=== PATIENT | female | born 1935 | race Caucasian/White ===

== ENCOUNTER 2019-01-17 19:24 | Emergency (ER) | payer OTHER ==
[2019-01-17] MEDS ORDERED: BUPIVACAINE 0.5% PF 10 ML VIAL ONE (20:02)
--- NOTE | 2019-01-17 20:19 | RAD REPORT ---
EXAM DESCRIPTION: RAD - Hand Right 3 View - 01/17/2019 8:11 pm CLINICAL HISTORY: Right hand pain status post injury FINDINGS: Dislocation involves the third middle phalanx. No fracture is seen
[2019-01-17] MEDS ORDERED: WATER FOR INJ,STERILE 10 ML ONE (20:27)
[2019-01-17] MEDS ORDERED: CEFAZOLIN SODIUM 1 GM/VIAL ONE (20:27)
--- NOTE | 2019-01-17 20:32 | EDPHYS ---
Physician Documentation [facility] Name: Mima Dougherty Age: 83 yrs Sex: Female : 1935 Arrival Date: 01/17/2019 Time: 19:26 Bed 28 Private MD: Cole Bella C ED Physician Asa Alcaraz HPI: 01/17 20:08 This 83 yrs old Female presents to ER via Ambulatory with complaints of jr8 Finger Injury. 20:08 Mechanism of injury: Fall:. Associated injuries: The patient sustained right hand. jr8 Onset: The symptoms/episode began/occurred acutely, today. The patient has not experienced similar symptoms in the past. The patient has not recently seen a physician. Patient was holding on to dog with leash and fell landing on both hands. Lacerated right volar surface of middle finger with obvious deformity. Historical: - Allergies: 19:35 Toprol XL; aj1 19:35 Lisinopril; aj1 19:35 Cozaar; aj1 19:35 amiodarone; aj1 - Home Meds: 19:35 propafenone 225 mg Oral cp12 1 cap three times a day [Active]; Metamucil Smooth Texture aj1 Oral three times a day [Active]; hydrochlorothiazide 12.5 mg Oral tab 1 tab once daily [Active]; aspirin 81 mg Oral chew 1 tab once daily [Active]; amlodipine 5 mg tab 1 tab once daily [Active]; esster c 1000 mg daily [Active]; Tekturna 150 mg oral tab 1 tab once daily [Active]; warfarin 4 mg Oral tab 1 tab once daily [Active]; warfarin 2 mg Oral tab 1 tab once daily [Active]; lovastatin 20 mg Oral tab 1 tab once daily [Active]; PreserVision Lutein 226 mg-200 unit -5 mg-0.8 mg oral cap daily [Active]; - PMHx: 19:35 CVA; pnumonia; MRSA; aj1 - PSHx: 19:35 ORIF left calcaneus; cataract surgery; aj1 - Immunization history:: Flu vaccine is up to date. - Social history:: Smoking status: Patient/guardian denies using tobacco. - Ebola Screening: : Patient denies travel to an Ebola-affected area in the 21 days before illness onset. ROS: 20:08 Eyes: Negative for injury, pain, redness, and discharge, ENT: Negative for injury, jr8 pain, and discharge, Neck: Negative for injury, pain, and swelling, Cardiovascular: Negative for chest pain, palpitations, and edema, Respiratory: Negative for shortness of breath, cough, wheezing, and pleuritic chest pain, Abdomen/GI: Negative for abdominal pain, nausea, vomiting, diarrhea, and constipation, Back: Negative for injury and pain, Neuro: Negative for headache, weakness, numbness, tingling, and seizure. 20:08 MS/extremity: Positive for deformity, ecchymosis, laceration, pain, swelling, tenderness, of the PIP of right middle finger. Exam: 20:08 Head/Face: Normocephalic, atraumatic. Eyes: Pupils equal round and reactive to light, jr8 extra-ocular motions intact. Lids and lashes normal. Conjunctiva and sclera are non-icteric and not injected. Cornea within normal limits. Periorbital areas with no swelling, redness, or edema. ENT: Nares patent. No nasal discharge, no septal abnormalities noted. Tympanic membranes are normal and external auditory canals are clear. Oropharynx with no redness, swelling, or masses, exudates, or evidence of obstruction, uvula midline. Mucous membranes moist. Neck: Trachea midline, no thyromegaly or masses palpated, and no cervical lymphadenopathy. Supple, full range of motion without nuchal rigidity, or vertebral point tenderness. No Meningismus. Cardiovascular: Regular rate and rhythm with a normal S1 and S2. No gallops, murmurs, or rubs. Normal PMI, no JVD. No pulse deficits. Respiratory: Lungs have equal breath sounds bilaterally, clear to auscultation and percussion. No rales, rhonchi or wheezes noted. No increased work of breathing, no retractions or nasal flaring. Abdomen/GI: Soft, non-tender, with normal bowel sounds. No distension or tympany. No guarding or rebound. No evidence of tenderness throughout. Skin: Warm, dry with normal turgor. Normal color with no rashes, no lesions, and no evidence of cellulitis. Neuro: Awake and alert, GCS 15, oriented to person, place, time, and situation. Cranial nerves II-XII grossly intact. Motor strength 5/5 in all extremities. Sensory grossly intact. Cerebellar exam normal. Normal gait. 20:08 Musculoskeletal/extremity: Extremities: grossly normal except: noted in the PIP of right middle finger: Patient has obvious deformity of the PIP joint right middle finger with 1.5 cm laceration present. Small avulsion tear to left palm region. Mild bruising to PIP of the 4 digit noted as well. Neurovascularly intact . Vital Signs: 19:27 BP 191 / 86; Pulse 70; Resp 18; Temp 97.0(TE); Pulse Ox 100% on R/A; Weight 55.34 kg aj1 (R); Height 5 ft. 2 in. (157.48 cm) (R); Pain 1/10; 20:53 BP 185 / 81; Pulse 71; Resp 16; Pulse Ox 98% on R/A; la1 19:27 Body Mass Index 22.31 (55.34 kg, 157.48 cm) aj1 Procedures: 20:08 Reduction: of the PIP of right middle finger, using traction, manipulation, Immobilized jr8 with finger splint, Patient tolerated well. Post reduction film - reveals normal alignment. Nerve block: (digital) of dorsal aspect of proximal phalanx of right middle finger Medication: Marcaine 0.5%, Amount: 3 mls were injected, Effect: the patient has resolution of the pain, Set up for procedure. Performed by Nick MARCUS Patient tolerated well. Laceration: 20:08 Wound Repair of 1.5cm ( 0.6in ) subcutaneous laceration to PIP of right middle finger. jr8 Distal neuro/vascular/tendon intact. Anesthesia: Digital block administered with 3 mls of 0.5% marcaine. Wound prep: Extensive cleansing with betadine, Wound irrigation with saline, Wound explored extensively. Skin closed with 3 5-0 Prolene using interrupted sutures and sterile technique. Patient tolerated well. MDM: 19:40 Patient medically screened. jr8 20:08 Data reviewed: vital signs, nurses notes, radiologic studies, plain films, and as a jr8 result, I will discharge patient. Data interpreted: Pulse oximetry: on room air is 100 %. Interpretation: normal. Counseling: I had a detailed discussion with the patient and/or guardian regarding: the historical points, exam findings, and any diagnostic results supporting the discharge/admit diagnosis, radiology results, the need for outpatient follow up, a hand specialist, to return to the emergency department if symptoms worsen or persist or if there are any questions or concerns that arise at home. 20:17 ED course: Patient has had tetanus within past 5 years . jr8 01/17 19:41 Order name: Hand Right 3 View XRAY; Complete Time: 20:20 la1 01/17 20:07 Order name: Hand Right 2 View XRAY; Complete Time: 20:38 la1 01/17 20:21 Order name: Prolene, Sutures; Complete Time: 20:21 la1 01/17 20:21 Order name: Gloves, Sterile; Complete Time: 20:21 la1 01/17 20:21 Order name: Setup Suture Tray; Complete Time: 20:21 la1 01/17 20:32 Order name: Finger Splint; Complete Time: 20:53 jr8 Administered Medications: 19:44 Not Given (Up to date): Tetanus-Diphtheria Toxoid Adult 0.5 ml IM once la1 20:18 Drug: Ancef 1 grams Route: IM; Site: right vastus lateralis; la1 20:19 Follow up: Response: No adverse reaction la1 20:54 Follow up: Response: No adverse reaction la1 20:19 Drug: Marcaine (0.5 %) 5 ml Volume: 10 ml; Route: Infiltration; la1 Disposition: 01/18 07:18 Co-signature as Attending Physician, Asa Alcaraz MD. gs Disposition: 01/17/19 20:31 Discharged to Home. Impression: Dislocation of proximal interphalangeal joint of right middle finger, Laceration without foreign body of finger without damage to nail. - Condition is Stable. - Discharge Instructions: Laceration Care, Adult. - Prescriptions for Keflex 500 mg Oral Capsule - take 1 capsule by ORAL route every 8 hours for 7 days; 21 capsule. - Medication Reconciliation Form, Thank You Letter, Antibiotic Education, Prescription Opioid Use form. - Follow up: Richard Norris; When: 2 - 3 days; Reason: Wound Recheck, Recheck today's complaints, Continuance of care, Staple/Suture removal, Re-evaluation by your physician. - Problem is new. - Symptoms have improved. Signatures: Dispatcher [employer] EDMS Bambi Greene RN RN zaki1 Nick Bravo PA PA jr8 Js Graham RN RN la1 Asa Alcaraz MD MD gs Corrections: (The following items were deleted from the chart) 01/17 20:55 20:31 01/17/2019 20:31 Discharged to Home. Impression: Dislocation of proximal la1 interphalangeal joint of right middle finger; Laceration without foreign body of finger without damage to nail. Condition is Stable. Discharge Instructions: Laceration Care, Adult. Prescriptions for Keflex 500 mg Oral Capsule - take 1 capsule by ORAL route every 8 hours for 7 days; 21 capsule. and Forms are Medication Reconciliation Form, Thank You Letter, Antibiotic Education, Prescription Opioid Use. Follow up: Richard Norris; When: 2 - 3 days; Reason: Wound Recheck, Recheck today's complaints, Continuance of care, Staple/Suture removal, Re-evaluation by your physician. Problem is new. Symptoms have improved. jr8
--- NOTE | 2019-01-17 20:32 | ER ---
Nurse's Notes [facility] Name: Mima Dougherty Age: 83 yrs Sex: Female : 1935 Arrival Date: 01/17/2019 Time: 19:26 Bed 28 Private MD: Cole Bella C Diagnosis: Dislocation of proximal interphalangeal joint of right middle finger;Laceration without foreign body of finger without damage to nail Presentation: 01/17 19:27 Presenting complaint: Patient states: "I was walking the dog and I tripped over aj1 something and fell and I hurt my finger" Dislocation noted to right middle finger. Transition of care: patient was not received from another setting of care. Onset of symptoms was January 17, 2019. Risk Assessment: Do you want to hurt yourself or someone else? Patient reports no desire to harm self or others. Initial Sepsis Screen: Does the patient meet any 2 criteria? No. Patient's initial sepsis screen is negative. Does the patient have a suspected source of infection? No. Patient's initial sepsis screen is negative. Care prior to arrival: None. 19:27 Method Of Arrival: Ambulatory [facility] 19:27 Acuity: LAN 4 aj1 Triage Assessment: 19:27 General: Appears in no apparent distress. comfortable, Behavior is calm, cooperative, aj1 appropriate for age. Pain: Complains of pain in dorsal aspect of middle phalanx of right middle finger Pain currently is 1 out of 10 on a pain scale. Neuro: Level of Consciousness is awake, alert, obeys commands. Cardiovascular: Patient's skin is warm and dry. Respiratory: Airway is patent Respiratory effort is even, unlabored, Respiratory pattern is regular, symmetrical. Musculoskeletal: Range of motion: limited in PIP of right middle finger. Injury Description: Patient tripped and dislocated her right middle finger. Historical: - Allergies: 19:35 Toprol XL; aj1 19:35 Lisinopril; aj1 19:35 Cozaar; aj1 19:35 amiodarone; aj1 - Home Meds: 19:35 propafenone 225 mg Oral cp12 1 cap three times a day [Active]; Metamucil Smooth Texture aj1 Oral three times a day [Active]; hydrochlorothiazide 12.5 mg Oral tab 1 tab once daily [Active]; aspirin 81 mg Oral chew 1 tab once daily [Active]; amlodipine 5 mg tab 1 tab once daily [Active]; esster c 1000 mg daily [Active]; Tekturna 150 mg oral tab 1 tab once daily [Active]; warfarin 4 mg Oral tab 1 tab once daily [Active]; warfarin 2 mg Oral tab 1 tab once daily [Active]; lovastatin 20 mg Oral tab 1 tab once daily [Active]; PreserVision Lutein 226 mg-200 unit -5 mg-0.8 mg oral cap daily [Active]; - PMHx: 19:35 CVA; pnumonia; MRSA; aj1 - PSHx: 19:35 ORIF left calcaneus; cataract surgery; aj1 - Immunization history:: Flu vaccine is up to date. - Social history:: Smoking status: Patient/guardian denies using tobacco. - Ebola Screening: : Patient denies travel to an Ebola-affected area in the 21 days before illness onset. Screenin:43 Abuse screen: Denies threats or abuse. Nutritional screening: No deficits noted. la1 Tuberculosis screening: No symptoms or risk factors identified. Fall Risk None identified. Assessment: 19:42 General: Appears in no apparent distress. Behavior is calm, cooperative. Pain: la1 Complains of pain in PIP of right middle finger and dorsal aspect of middle phalanx of right middle finger. Neuro: Level of Consciousness is awake, alert, obeys commands, Oriented to person, place, time, situation. Cardiovascular: Capillary refill < 3 seconds Patient's skin is warm and dry. Respiratory: Airway is patent Respiratory effort is even, unlabored, Respiratory pattern is regular, symmetrical. GI: No signs and/or symptoms were reported involving the gastrointestinal system. : No signs and/or symptoms were reported regarding the genitourinary system. Musculoskeletal: Bony deformity noted of PIP of right middle finger and dorsal aspect of middle phalanx of right middle finger. Vital Signs: 19:27 BP 191 / 86; Pulse 70; Resp 18; Temp 97.0(TE); Pulse Ox 100% on R/A; Weight 55.34 kg aj1 (R); Height 5 ft. 2 in. (157.48 cm) (R); Pain 1/10; 20:53 BP 185 / 81; Pulse 71; Resp 16; Pulse Ox 98% on R/A; la1 19:27 Body Mass Index 22.31 (55.34 kg, 157.48 cm) aj1 ED Course: 19:26 Patient arrived in ED. am2 19:27 Cole Bella MD is Private Physician. am2 19:27 Arm band placed on. aj1 19:28 Triage completed. aj1 19:40 Nick Bravo PA is PHCP. jr8 19:40 Asa Alcaraz MD is Attending Physician. jr8 19:42 Js Grahma RN is Primary Nurse. la1 19:43 Call light in reach. Side rails up X 1. la1 20:11 Hand Right 3 View XRAY In Process Unspecified. EDMS 20:20 Hand Right 2 View XRAY In Process Unspecified. EDMS 20:31 Richard Norris MD is Referral Physician. jr8 20:54 No provider procedures requiring assistance completed. Patient did not have IV access la1 during this emergency room visit. Administered Medications: 19:44 Not Given (Up to date): Tetanus-Diphtheria Toxoid Adult 0.5 ml IM once la1 20:18 Drug: Ancef 1 grams Route: IM; Site: right vastus lateralis; la1 20:19 Follow up: Response: No adverse reaction la1 20:54 Follow up: Response: No adverse reaction la1 20:19 Drug: Marcaine (0.5 %) 5 ml Volume: 10 ml; Route: Infiltration; la1 Outcome: 20:31 Discharge ordered by MD. jr8 20:54 Discharged to home ambulatory. la1 20:54 Condition: stable 20:54 Discharge instructions given to patient, Instructed on discharge instructions, follow up and referral plans. medication usage, Demonstrated understanding of instructions, follow-up care, medications, Prescriptions given X 1. 20:55 Patient left the ED. la1 Signatures: Dispatcher [employer] Bambi Ventura RN RN aj1 Nick Bravo PA PA jr8 Js Graham RN RN la1 Amber Iraheta am2
--- NOTE | 2019-01-17 20:35 | RAD REPORT ---
EXAM DESCRIPTION: RAD - Hand Right 2 View - 01/17/2019 8:21 pm CLINICAL HISTORY: Hand pain FINDINGS: Previously described dislocation involving the third middle phalanx appears reduced
[2019-01-17 22:13] VITALS: TEMP 97
[2019-01-17 22:15] VITALS: BP 185/81; O2SAT 98
== END 2019-01-17 20:55 | disposition home or self-care (01) ==
LOC: ER 19:24
PROC: 0RSWXZZ Reposition Right Finger Phalangeal Joint, External Approach (ICD-10-PCS; principal; 2019-01-17)
PROC: 0JQJ0ZZ Repair Right Hand Subcutaneous Tissue and Fascia, Open Approach (ICD-10-PCS; 2019-01-17)
DX: S61.312A Laceration without foreign body of right middle finger with damage to nail, initial encounter (principal); S63.282A Dislocation of proximal interphalangeal joint of right middle finger, initial encounter; W19.XXXA Unspecified fall, initial encounter; Y93.K1 Activity, walking an animal; Y92.9 Unspecified place or not applicable; Z79.01 Long term (current) use of anticoagulants; Z79.82 Long term (current) use of aspirin; Z88.8 Allergy status to other drugs, medicaments and biological substances; Z86.73 Personal history of transient ischemic attack (TIA), and cerebral infarction without residual deficits
CPT/HCPCS: 73130; 73120; 64450; 96372; 99283; 26770; 12001; J0690

== ENCOUNTER 2019-04-10 08:50 | Inpatient (IN) | payer OTHER ==
--- NOTE | 2019-04-10 09:52 | RAD REPORT ---
EXAM DESCRIPTION: CT - Head Brain Wo Cont - 04/10/2019 9:39 am CLINICAL HISTORY: Head injury status post fall COMPARISON: None TECHNIQUE: Computed axial tomography of the head was obtained. IV contrast was not requested. All CT scans are performed using dose optimization technique as appropriate and may include automated exposure control or mA/KV adjustment according to patient size. FINDINGS: An intracranial bleed is not seen . The ventricles are normal in caliber. No extra-axial fluid collection is noted. 2 centimeter low-density area within the right frontal lobe extending into the right caudate has the appearance of an old infarction. Small additional old right frontal lobe infarct is suspected. Fluid within the sinuses/ mastoids is not seen. IMPRESSION: No acute intracranial abnormality is seen. If patient's symptoms persist MRI of the bra in would be recommended.
--- NOTE | 2019-04-10 10:57 | RAD REPORT ---
EXAM DESCRIPTION: RAD - Hip Right 2 View - 04/10/2019 9:49 am CLINICAL HISTORY: Right hip pain FINDINGS: Mildly displaced fracture involves the right superior pubic ramus. Probable nondisplaced f racture left inferior pubic ramus. No dislocation Osteoporosis
--- NOTE | 2019-04-10 11:15 | RAD REPORT ---
EXAM DESCRIPTION: CT - Hip Right Wo Con - 04/10/2019 10:53 am CLINICAL HISTORY: Right hip pain status post fall COMPARISON: X-rays on the same date. TECHNIQUE: Computed axial tomography of the right hip were obtained. Coronal and sagittal reconstruc tion was performed. All CT scans are performed using dose optimization technique as appropriate and may include automated exposure control or mA/KV adjustment according to patient size. FINDINGS: Mildly displaced comminuted fracture right superior pubic ramus. Small hematoma posterior to the right pubic bone Nondisplaced fracture right inferior pubic ramus Nondisplaced fracture right sacral ala Lucency within the posterior right ilium appears chronic No dislocation IMPRESSION: Mildly displaced comminuted fracture right superior pubic ramus. Nondisplaced fracture right inferior pubic ramus Nondisplaced fracture right sacral ala
[2019-04-10 12:25] LABS: Absolute Lymphocytes (CBC) 1.1 K/uL (0.7-4.9); Basophils % 0.3 % (0-1.3); Hematocrit 29.5 % (36.0-45.0); Lymphocytes % 8.4 % (15.3-44.8); MPV 9.1 fL (7.6-11.3); RBC Red Blood Cell Count 3.01 M/uL (3.86-4.86)
[2019-04-10 12:27] LABS: Protime INR 2.3
[2019-04-10 13:00] LABS: Blood Morphology Comment NOT SEEN (NOT SEEN); Platelet Estimate ADEQ
--- NOTE | 2019-04-10 13:39 | ER ---
Nurse's Notes [facility] Name: Mima Dougherty Age: 83 yrs Sex: Female : 1935 Arrival Date: 04/10/2019 Time: 08:51 Bed 19 Private MD: Diagnosis: Multiple fractures of pelvis with stable disruption of pelvic ring Presentation: 04/10 08:52 Presenting complaint: EMS states: called out for a fall after dog tripped her and em landed on grass, denies LOC, neck pain or hitting head, c/o pain in right hip, no shortening or rotation noted to leg, takes warfarin for AFIB. Transition of care: patient was not received from another setting of care. Onset of symptoms was April 10, 2019. Risk Assessment: Do you want to hurt yourself or someone else? Patient reports no desire to harm self or others. Initial Sepsis Screen: Does the patient meet any 2 criteria? No. Patient's initial sepsis screen is negative. Does the patient have a suspected source of infection? No. Patient's initial sepsis screen is negative. Care prior to arrival: None. 08:52 Method Of Arrival: EMS: [facility] em 09:02 Acuity: LAN 3 tw2 Historical: - Allergies: 08:57 Amiodarone; em 08:57 Cozaar; em 08:57 Lisinopril; em 08:57 Toprol XL; em - Home Meds: 08:57 amlodipine 5 mg tab 1 tab once daily [Active]; aspirin 81 mg Oral chew 1 tab once daily em [Active]; esster c 1000 mg daily [Active]; hydrochlorothiazide 12.5 mg Oral tab 1 tab once daily [Active]; lovastatin 20 mg Oral tab 1 tab once daily [Active]; Metamucil Smooth Texture Oral three times a day [Active]; PreserVision Lutein 226 mg-200 unit -5 mg-0.8 mg Oral cap daily [Active]; propafenone 225 mg Oral cp12 1 cap three times a day [Active]; Tekturna 150 mg Oral tab 1 tab once daily [Active]; warfarin 4 mg Oral tab 1 tab once daily [Active]; warfarin 2 mg Oral tab 1 tab once daily [Active]; - PMHx: 08:57 CVA; MRSA; pnumonia; em 09:00 Atrial Fib; em - PSHx: 08:57 ORIF left calcaneus; cataract surgery; em - Immunization history:: Adult Immunizations up to date. - Social history:: Smoking status: Patient/guardian denies using tobacco. - Ebola Screening: : Patient negative for fever greater than or equal to 101.5 degrees Fahrenheit, and additional compatible Ebola Virus Disease symptoms Patient denies exposure to infectious person Patient denies travel to an Ebola-affected area in the 21 days before illness onset No symptoms or risks identified at this time. Screenin:58 Abuse screen: Denies threats or abuse. Nutritional screening: No deficits noted. em Tuberculosis screening: No symptoms or risk factors identified. Fall Risk None identified. Assessment: 09:18 General: Appears in no apparent distress. comfortable, Behavior is calm, cooperative. em Pain: Complains of pain in right hip Pain currently is 0 out of 10 on a pain scale. Neuro: Level of Consciousness is awake, alert, obeys commands, Oriented to person, place, time, situation, Appropriate for age. Cardiovascular: Capillary refill < 3 seconds Patient's skin is warm and dry. Respiratory: Airway is patent Respiratory effort is even, unlabored, Respiratory pattern is regular, symmetrical. Derm: Skin is intact, is thin, Skin is pink, warm \T\ dry. Musculoskeletal: Range of motion: limited in right hip. 10:07 Reassessment: Patient appears in no apparent distress at this time. assisted pt to em bedpan, tolerated well, c/o right hip pain. 12:12 Reassessment: Patient appears in no apparent distress at this time. Patient and/or em family updated on plan of care and expected duration. Pain level reassessed. Patient is alert, oriented x 3, equal unlabored respirations, skin warm/dry/pink. Patient denies pain at this time. 13:34 Reassessment: Patient appears in no apparent distress at this time. Patient and/or em family updated on plan of care and expected duration. Pain level reassessed. Patient is alert, oriented x 3, equal unlabored respirations, skin warm/dry/pink. 14:30 Reassessment: Patient appears in no apparent distress at this time. Patient and/or em family updated on plan of care and expected duration. Pain level reassessed. Patient is alert, oriented x 3, equal unlabored respirations, skin warm/dry/pink. Patient denies pain at this time. Vital Signs: 08:57 BP 154 / 62; Pulse 71; Resp 18; Temp 97.8; Pulse Ox 99% on R/A; Weight 56.7 kg; Height em 5 ft. 2 in. (157.48 cm); Pain 0/10; 10:00 BP 182 / 57; Pulse 63; Resp 18; Pulse Ox 99% on R/A; Pain 0/10; em 11:54 BP 168 / 93; Pulse 67; Resp 18; Pulse Ox 99% on R/A; em 13:34 BP 154 / 72; Pulse 73; Resp 18; Pulse Ox 99% on R/A; Pain 0/10; em 14:30 BP 153 / 65; Pulse 73; Resp 18; Pulse Ox 99% on R/A; Pain 0/10; em 08:57 Body Mass Index 22.86 (56.70 kg, 157.48 cm) em ED Course: 08:51 Patient arrived in ED. iw 08:52 Doc Martínez LVN is Primary Nurse. em 08:57 Arm band placed on. em 08:58 Patient has correct armband on for positive identification. Placed in gown. Bed in low em position. Adult w/ patient. Pulse ox on. NIBP on. 09:02 Triage completed. tw2 09:03 Asa Alcaraz MD is Attending Physician. gs 09:44 CT Head Brain wo Cont In Process Unspecified. EDMS 09:47 Hip Right 2 View XRAY In Process Unspecified. EDMS 10:54 Hip Right Wo Con In Process Unspecified. EDMS 12:00 Initial lab(s) drawn, by me, sent to lab. Inserted saline lock: 22 gauge in left em antecubital area, using aseptic technique. Blood collected. 13:37 Chris Bella MD is Hospitalizing Provider. gs 15:11 No provider procedures requiring assistance completed. Patient admitted, IV remains in em place. Administered Medications: No medications were administered Outcome: 13:38 Decision to Hospitalize by Provider. gs 15:11 Admitted to Med/surg accompanied by arnie, via stretcher, room 420, with chart, Report em called to KUN Sanchez 15:11 Condition: good 15:11 Instructed on discharge instructions, Demonstrated understanding of instructions. 15:22 Patient left the ED. iw Signatures: Dispatcher [employer] EDMS MartínezDoc, PORTRAIT CONSULTANT PORTRAIT CONSULTANT em Jennifer Musa RN RN iw Karine Gipson RN RN tw2 Asa Alcaraz MD MD gs Corrections: (The following items were deleted from the chart) 08:59 08:52 Presenting complaint: EMS states: called out for a fall after dog tripped her and em landed on grass, denies LOC, neck pain or hitting head, c/o pain in right hip, no shortening or rotation noted to leg em
--- NOTE | 2019-04-10 13:39 | EDPHYS ---
Physician Documentation [facility] Name: Mima Dougherty Age: 83 yrs Sex: Female : 1935 Arrival Date: 04/10/2019 Time: 08:51 Bed 19 Private MD: ED Physician Asa Alcaraz HPI: 04/10 13:32 This 83 yrs old Female presents to ER via EMS with complaints of fall pain gs left leg. 13:32 Details of fall: The patient fell from an upright position. Onset: The symptoms/episode gs began/occurred acutely, suddenly, just prior to arrival. Associated injuries: The patient sustained pelvis and right hip. Severity of symptoms: At their worst the symptoms were severe. The patient has not experienced similar symptoms in the past. Historical: - Allergies: 08:57 Amiodarone; em 08:57 Cozaar; em 08:57 Lisinopril; em 08:57 Toprol XL; em - Home Meds: 08:57 amlodipine 5 mg tab 1 tab once daily [Active]; aspirin 81 mg Oral chew 1 tab once daily em [Active]; esster c 1000 mg daily [Active]; hydrochlorothiazide 12.5 mg Oral tab 1 tab once daily [Active]; lovastatin 20 mg Oral tab 1 tab once daily [Active]; Metamucil Smooth Texture Oral three times a day [Active]; PreserVision Lutein 226 mg-200 unit -5 mg-0.8 mg Oral cap daily [Active]; propafenone 225 mg Oral cp12 1 cap three times a day [Active]; Tekturna 150 mg Oral tab 1 tab once daily [Active]; warfarin 4 mg Oral tab 1 tab once daily [Active]; warfarin 2 mg Oral tab 1 tab once daily [Active]; - PMHx: 08:57 CVA; MRSA; pnumonia; em 09:00 Atrial Fib; em - PSHx: 08:57 ORIF left calcaneus; cataract surgery; em - Immunization history:: Adult Immunizations up to date. - Social history:: Smoking status: Patient/guardian denies using tobacco. - Ebola Screening: : Patient negative for fever greater than or equal to 101.5 degrees Fahrenheit, and additional compatible Ebola Virus Disease symptoms Patient denies exposure to infectious person Patient denies travel to an Ebola-affected area in the 21 days before illness onset No symptoms or risks identified at this time. ROS: 13:32 All other systems are negative. gs Exam: 13:32 Head/Face: Normocephalic, atraumatic. Eyes: Pupils equal round and reactive to light, gs extra-ocular motions intact. Lids and lashes normal. Conjunctiva and sclera are non-icteric and not injected. Cornea within normal limits. Periorbital areas with no swelling, redness, or edema. ENT: Nares patent. No nasal discharge, no septal abnormalities noted. Tympanic membranes are normal and external auditory canals are clear. Oropharynx with no redness, swelling, or masses, exudates, or evidence of obstruction, uvula midline. Mucous membranes moist. Neck: Trachea midline, no thyromegaly or masses palpated, and no cervical lymphadenopathy. Supple, full range of motion without nuchal rigidity, or vertebral point tenderness. No Meningismus. Chest/axilla: Normal chest wall appearance and motion. Nontender with no deformity. No lesions are appreciated. Cardiovascular: Regular rate and rhythm with a normal S1 and S2. No gallops, murmurs, or rubs. Normal PMI, no JVD. No pulse deficits. Respiratory: Lungs have equal breath sounds bilaterally, clear to auscultation and percussion. No rales, rhonchi or wheezes noted. No increased work of breathing, no retractions or nasal flaring. Abdomen/GI: Soft, non-tender, with normal bowel sounds. No distension or tympany. No guarding or rebound. No evidence of tenderness throughout. Back: No spinal tenderness. No costovertebral tenderness. Full range of motion. Skin: Warm, dry with normal turgor. Normal color with no rashes, no lesions, and no evidence of cellulitis. Neuro: Awake and alert, GCS 15, oriented to person, place, time, and situation. Cranial nerves II-XII grossly intact. Motor strength 5/5 in all extremities. Sensory grossly intact. Cerebellar exam normal. Normal gait. 13:32 Constitutional: The patient appears alert, awake, in obvious distress, severely distressed. 13:32 Musculoskeletal/extremity: Extremities: noted in the pelvis and right hip: decreased ROM, tenderness, There is no evidence of deformity, Pulses: are normal with no appreciated deficits. Vital Signs: 08:57 BP 154 / 62; Pulse 71; Resp 18; Temp 97.8; Pulse Ox 99% on R/A; Weight 56.7 kg; Height em 5 ft. 2 in. (157.48 cm); Pain 0/10; 10:00 BP 182 / 57; Pulse 63; Resp 18; Pulse Ox 99% on R/A; Pain 0/10; em 11:54 BP 168 / 93; Pulse 67; Resp 18; Pulse Ox 99% on R/A; em 13:34 BP 154 / 72; Pulse 73; Resp 18; Pulse Ox 99% on R/A; Pain 0/10; em 14:30 BP 153 / 65; Pulse 73; Resp 18; Pulse Ox 99% on R/A; Pain 0/10; em 08:57 Body Mass Index 22.86 (56.70 kg, 157.48 cm) em MDM: 09:26 Patient medically screened. 13:32 Differential diagnosis: closed head injury, contusion, fracture. Data reviewed: vital gs signs, nurses notes. Response to treatment: the patient's symptoms have mildly improved after treatment, and as a result, I will discharge patient. 04/10 11:37 Order name: CBC with Diff; Complete Time: 13:38 gs 04/10 11:37 Order name: Basic Metabolic Panel; Complete Time: 12:39 gs 04/10 11:37 Order name: Ptt, Activated; Complete Time: 12:39 gs 04/10 11:37 Order name: PT-INR; Complete Time: 12:39 04/10 13:01 Order name: Manual Differential; Complete Time: 13:38 EDMS 04/10 13:47 Order name: CBC with Automated Diff EDMS 04/10 09:26 Order name: CT Head Brain wo Cont; Complete Time: 10:35 gs 04/10 09:26 Order name: Hip Right 2 View XRAY; Complete Time: 11:20 gs 04/10 10:39 Order name: Hip Right Wo Con; Complete Time: 11:20 EDMS 04/10 13:37 Order name: Diet Regular; Complete Time: 13:38 em 04/10 13:47 Order name: Regular EDMS Administered Medications: No medications were administered Disposition: 04/10/19 13:38 Hospitalization ordered by Chris Bella for Inpatient Admission. Preliminary diagnosis is Multiple fractures of pelvis with stable disruption of pelvic ring. - Bed requested for Telemetry/MedSurg (Inpatient). - Status is Inpatient Admission. iw - Condition is Stable. - Problem is new. - Symptoms have improved. UTI on Admission? No Signatures: Dispatcher [employer] Doc Donaldson, CEMENT STORAGE WORKER CEMENT STORAGE WORKER Jennifer López, KUN RN Asa Oneill MD MD gs Botello, Elizabeth eb Corrections: (The following items were deleted from the chart) 14:16 13:38 Hospitalization Ordered by Chris Bella MD for Inpatient Admission. Preliminary eb diagnosis is Multiple fractures of pelvis with stable disruption of pelvic ring. Bed requested for Telemetry/MedSurg (Inpatient). Status is Inpatient Admission. Condition is Stable. Problem is new. Symptoms have improved. UTI on Admission? No. 15:22 14:16 04/10/2019 13:38 Hospitalization Ordered by Chris Bella MD for Inpatient iw Admission. Preliminary diagnosis is Multiple fractures of pelvis with stable disruption of pelvic ring. Bed requested for Telemetry/MedSurg (Inpatient). Status is Inpatient Admission. Condition is Stable. Problem is new. Symptoms have improved. UTI on Admission? No. eb
[2019-04-10] MEDS ORDERED: ONDANSETRON 4 MG/2 ML VIAL IV PRN (13:44)
[2019-04-10] MEDS ORDERED: MORPHINE 4 MG/ML SYR IV PRN (13:44)
[2019-04-10 16:24] VITALS: BMI 22.8
[2019-04-10] MEDS: HYDROCODONE/APAP 5/325 MG TAB PO PRN (17:39)
[2019-04-10] MEDS: PSYLLIUM 1 PKT PO SCH (20:28)
[2019-04-10] MEDS: ATORVASTATIN 10 MG TAB PO SCH (20:28)
[2019-04-10] MEDS: PROPAFENONE 225 MG CAP PO SCH (20:29)
[2019-04-10] MEDS: HOME MED 1 EA UNK (Cyclosporine [Restasis] 1 DROP) EACH EYE SCH ×2 (20:31→21:00)
[2019-04-10] MEDS ORDERED: PROPAFENONE PO SCH (21:00)
[2019-04-11 05:02] LABS: Absolute Lymphocytes (CBC) 1.3 K/uL (0.7-4.9); Basophils % 0.3 % (0-1.3); Lymphocytes % 17.6 % (15.3-44.8); RBC Red Blood Cell Count 2.74 M/uL (3.86-4.86)
[2019-04-11] MEDS: AMLODIPINE 5 MG TAB PO SCH (08:02)
[2019-04-11] MEDS: VITAMIN D 1000 UNIT TAB PO SCH (08:02)
[2019-04-11] MEDS: MULTIVIT W/ MINERAL TAB PO SCH (08:03)
[2019-04-11] MEDS: ASPIRIN EC 81 MG TAB PO SCH (08:03)
[2019-04-11] MEDS: WARFARIN SODIUM 4 MG TAB PO SCH (08:03)
[2019-04-11] MEDS: HOME MED 1 EA UNK (Cyclosporine [Restasis] 1 DROP) EACH EYE SCH ×2 (08:03→21:00)
[2019-04-11] MEDS: PSYLLIUM 1 PKT PO SCH ×3 (08:03→20:46)
[2019-04-11] MEDS: hydroCHLOROthiazide 12.5 MG CAP PO SCH (08:03)
[2019-04-11] MEDS: [UNRECOGNIZED DRUG - OTHER] PO SCH (08:04)
[2019-04-11] MEDS ORDERED: HOME MED 1 EA UNK (Cholecalciferol (Vitamin D3) [Vitamin D3] 2,000 UNIT) PO SCH (09:00)
[2019-04-11] MEDS ORDERED: HOME MED 1 EA UNK (Lovastatin [Lovastatin] 1 TAB) PO SCH (09:00)
--- NOTE | 2019-04-11 09:10 | CON ---
Date of Consultation: 04/11/2019 History Of Present Illness: This is my first time seeing this patient to my knowledge. She is an 83 -year-old female who reportedly fell, injuring her right side. She was seen and examined in the [facility] department where she was ruled out for other injuries; however, x-rays and CT scan demonstrated nondisplaced fracture within the sacral ala as well as rami fractures. Physical Examination: Today, all of long bones and joints are palpated without pain or crepitation with the exception of pa in with movement of the right lower extremity at the hip. She denies any other injury. There is no sign of an open injury and she is neurovascularly intact. Review of CT scan does reveal the above issues. Assessment: This is an 83-year-old female, now with pain in the right side. This is reflective of a cute sacral ala fracture as well as superior and inferior pubic rami fractures. Plan: At this time, she can be weightbearing as tolerated with pain control. We expect, she would h ave significant pain for 2 weeks or so, continued soreness until week 6. All of her questions were o therwise been invited and answered. OLLIE Voice ID: [id number] Report ID: [id number]
[2019-04-11] MEDS: PROPAFENONE 225 MG CAP PO SCH ×3 (10:20→20:48)
[2019-04-11] MEDS: ALISKIREN 150 MG PO SCH (10:21)
[2019-04-11 12:39] LABS: Urine Appearance CLEAR; Urine Bilirubin NEGATIVE (NEG); Urine Blood NEGATIVE (NEG); Urine Color YELLOW; Urine Glucose TRACE (NEG); Urine Protein NEGATIVE (NEG); Urine Specific Gravity 1.015 (1.005-1.030); Urine Urobilinogen 0.2 mg/dL (0.2-1.0)
[2019-04-11 12:40] LABS: Urine Microscopic Reflex NO UMIC
[2019-04-11] MEDS: HYDROCODONE/APAP 5/325 MG TAB PO SCH ×2 (13:57→20:47)
[2019-04-11] MEDS: ATORVASTATIN 10 MG TAB PO SCH (20:47)
--- NOTE | 2019-04-11 21:29 | HP ---
Date of Admission: 04/10/2019 Chief Complaint: Fall and hip pain. History Of Present Illness: 83-year-old female patient who was walking her dog and all of a sudden her dog started to run and pulled her down and she fell on the ground. Ambulance was called and she was brought into the emergency room. After she was evaluated, she was diagnosed as having pelvis fracture and she was admitted to hospital. There was no evidence of femur fracture. When I saw her this morning, her was with her at bedside. Patient reports that she has pain anytime she moves. As long as she does not move, she does not have any pain. Allergies: TO METOPROLOL, LOSARTAN, LISINOPRIL, AND AMIODARONE. AMIODARONE CAUSING FACE SWELLING, BETA BLOCKERS CAUSING LIP AND THROAT SWELLING, LISINOPRIL CAUSING ANGIOEDEMA AND LOSARTAN CAUSING ANGIOEDEMA. Medications: List reviewed. Review of Systems: Musculoskeletal: As mentioned above. All other systems reviewed and negative. Past Medical History: Paroxysmal atrial fibrillation, hypertension, hyperlipidemia, anemia, allergic rhinitis. Past Surgical History: Fracture of the left foot and surgery for that, cataract surgery, tonsillectomy, ablation for atrial fibrillation in 2009, removal of benign breast cyst from 1999. Family History: Significant for lung cancer, coronary artery disease, hyperlipidemia, thyroid disorder and diabetes. Social History: Prior history of smoking not at present time. Use of alcohol negative. Physical Examination: VITAL SIGNS: Height 5 feet 2 inches, weight 125 pounds, temperature 97.8, pulse 71, blood pressure 154/62, respiratory rate 18. General: Awake, alert, oriented, not in distress. HEENT: Head atraumatic, normocephalic. Conjunctivae nonerythematous. Sclerae white. Mouth, no thrush or edema noted. Ears/Nose, no mass, lesion, discharge noted. Neck: Supple. No JVD, lymph nodes, bruit, thyromegaly noted. Lungs: Bilateral good equal air entry. Clear to auscultation. No rhonchi. No rales. Heart: Normal heart sounds, no murmur or gallop. Abdomen: Soft, bowel sounds normal. No guarding, rigidity, tenderness, mass, hepatosplenomegaly, distention, or bruit noted. Extremities: No leg edema. No calf tenderness. Skin: No rash, ulcer, cellulitis. Lymphatics: No lymph node enlargement in neck, supraclavicular, infraclavicular region. Neuro: No focal neurological deficit. Chest: Unremarkable. External Genitalia: Deferred. Rectal: Deferred. Laboratory Data: Yesterday's white count 12.5, hemoglobin 10.5, platelets 211. This morning white count 7.5, hemoglobin 9.3, platelets 141. INR was 2.30 yesterday. Sodium 138, potassium 4, chloride 101, bicarb 30, BUN 60, creatinine 0.74, glucose 95. CAT scan of the hip shows a mildly displaced comminuted fracture of the right superior pubic ramus, nondisplaced fracture of right inferior pubic ramus, nondisplaced fracture of right sacral ala. Hip x- ray shows mildly displaced fracture involving right superior pubic ramus and inferior pubic ramus. CAT scan of the brain negative for any acute intracranial changes. Impression: 1. Fracture, right superior and inferior pubic ramus and sacral ala. 2. Anemia, chronic. 3. Hypertension. 4. Hyperlipidemia. 5. Paroxysmal atrial fibrillation. 6. Chronic anticoagulation therapy. 7. Allergic rhinitis. Plan: 1. Admit patient to hospital for further evaluation and management of this problem. The patient is appropriate for inpatient and is expected to spend 2 midnights in hospital. We will continue home medications per order including her warfarin. We will monitor PT/INR and hemoglobin. Consult orthopedic surgeon, Dr. Bello. Pain medications will be given per order. We will consult Physical Therapy. Give her stool softener and laxative as per order. Consult rehab and home medications will be continued per order. I will see her tomorrow for followup. Details of plan of treatment discussed with her. DARWIN/TAHIR Voice ID: [id number] MARCELLO
[2019-04-12 05:53] LABS: Absolute Lymphocytes (CBC) 1.5 K/uL (0.7-4.9); Basophils % 0.3 % (0-1.3); Hematocrit 26.8 % (36.0-45.0); Lymphocytes % 17.3 % (15.3-44.8); MPV 8.9 fL (7.6-11.3); RBC Red Blood Cell Count 2.73 M/uL (3.86-4.86)
[2019-04-12 06:07] LABS: Potassium 3.7 mmol/L (3.5-5.1)
[2019-04-12 06:49] LABS: Protime INR 1.92
[2019-04-12] MEDS: HOME MED 1 EA UNK (Cyclosporine [Restasis] 1 DROP) EACH EYE SCH ×2 (09:00→21:00)
[2019-04-12] MEDS: [UNRECOGNIZED DRUG - OTHER] PO SCH (09:00)
[2019-04-12] MEDS: PROPAFENONE 225 MG CAP PO SCH ×3 (09:15→21:54)
[2019-04-12] MEDS: ALISKIREN 150 MG PO SCH (09:15)
[2019-04-12] MEDS: HYDROCODONE/APAP 5/325 MG TAB PO SCH ×3 (09:16→21:00)
[2019-04-12] MEDS: MULTIVIT W/ MINERAL TAB PO SCH (09:16)
[2019-04-12] MEDS: PSYLLIUM 1 PKT PO SCH ×3 (09:16→21:57)
[2019-04-12] MEDS: hydroCHLOROthiazide 12.5 MG CAP PO SCH (09:16)
[2019-04-12] MEDS: VITAMIN D 1000 UNIT TAB PO SCH (09:16)
[2019-04-12] MEDS: AMLODIPINE 5 MG TAB PO SCH (09:17)
[2019-04-12] MEDS: ASPIRIN EC 81 MG TAB PO SCH (09:17)
[2019-04-12] MEDS: WARFARIN SODIUM 4 MG TAB PO SCH (09:22)
[2019-04-12] MEDS ORDERED: MAGNESIUM HYDROXIDE 8% 30 ML PO PRN (09:53)
--- NOTE | 2019-04-12 18:29 | PN ---
Date of Progress Note: 04/12/2019 Subjective: Patient was seen this morning for followup. No new complaints or problems reported by lalito aguilar. She denies having any bowel movement since she has been in the hospital. Denies any nausea, vomiting. Pain is well controlled with medication. Objective: Vital Signs: Reviewed. HEENT: Unremarkable. Lungs: Clear to auscultation. Heart: Sounds normal. Abdomen: Soft. Bowel sounds normal. No guarding, rigidity, tenderness, distention. Extremities: No leg edema. Laboratory Data: White count 8.9, hemoglobin 9.4, platelets 172. Sodium 137, potassium 3.7, chlorid e 103, bicarb 30, BUN 14, creatinine 0.75, glucose 101. INR 1.92. Impression: 1.Right superior and inferior pubic ramus fracture. 2.Right sacral ala fracture. 3.Atrial fibrillation. 4.Hypertension. 5.Chronic anticoagulation therapy. Plan: We will continue current pain medication. Patient is on Metamucil. We will continue that. W e will add Senokot S and milk of magnesia per order. Continue current pain medication. Patient was advised to try using bedside commode if possible instead of using bedpan to see whether that is less painful. She would like to find out if there is any other option besides using bedpan and we did chelly k about using bedside commode and she will try it. Continue physical therapy per order. I will see he r tomorrow for followup. DARWIN/TAHIR Voice ID: [id number] Report ID: [id number]
[2019-04-12] MEDS: ATORVASTATIN 10 MG TAB PO SCH (21:55)
[2019-04-12] MEDS: DOCUSATE NA/SENNA CONC 1 TAB PO SCH (21:56)
[2019-04-13] MEDS ORDERED: BISACODYL 10 MG RECTAL SUPP PR ONE (07:14)
[2019-04-13] MEDS: PROPAFENONE 225 MG CAP PO SCH ×3 (08:55→20:43)
[2019-04-13] MEDS: MULTIVIT W/ MINERAL TAB PO SCH (08:55)
[2019-04-13] MEDS: ALISKIREN 150 MG PO SCH (08:55)
[2019-04-13] MEDS: HYDROCODONE/APAP 5/325 MG TAB PO SCH ×3 (08:56→20:44)
[2019-04-13] MEDS: ASPIRIN EC 81 MG TAB PO SCH (08:56)
[2019-04-13] MEDS: AMLODIPINE 5 MG TAB PO SCH (08:57)
[2019-04-13] MEDS: hydroCHLOROthiazide 12.5 MG CAP PO SCH (08:57)
[2019-04-13] MEDS: HOME MED 1 EA UNK (Cyclosporine [Restasis] 1 DROP) EACH EYE SCH ×2 (08:58→20:51)
[2019-04-13] MEDS: PSYLLIUM 1 PKT PO SCH ×3 (08:58→20:44)
[2019-04-13] MEDS: [UNRECOGNIZED DRUG - OTHER] PO SCH (09:00)
[2019-04-13] MEDS: WARFARIN SODIUM 4 MG TAB PO SCH (09:01)
[2019-04-13] MEDS: VITAMIN D 1000 UNIT TAB PO SCH (09:04)
[2019-04-13] MEDS: DOCUSATE NA/SENNA CONC 1 TAB PO SCH (20:44)
[2019-04-13] MEDS: ATORVASTATIN 10 MG TAB PO SCH (20:44)
--- NOTE | 2019-04-14 00:43 | PN ---
Date of Progress Note: 04/13/2019 Subjective: Patient was seen this morning for followup. Her pain is under good control. Has not wesley d a bowel movement since her hospital admission. Denies any abdominal pain, nausea, or vomiting. Objective: Vital Signs: Reviewed. HEENT: Unremarkable. Lungs: Clear to auscultation. Heart: Sounds normal. Abdomen: Soft. Bowel sounds normal. No guarding, rigidity, tenderness, or distention. Extremities: No leg edema. Impression: 1.Right superior and inferior pubic ramus fracture. 2.Right sacral ala fracture. 3.Hypertension. 4.Constipation. Plan: We will go ahead and give her Dulcolax rectal suppository and enema as per order today. Emma nue other current medications including pain medication. Continue physical therapy. Rehab consultat ion is pending and patient did have a large bowel movement after treatment was provided for constipat ion today as per my discussion with the nursing staff. DARWIN/TAHIR Voice ID: [id number] Report ID: [id number]
[2019-04-14 04:21] LABS: Absolute Lymphocytes (CBC) 1.7 K/uL (0.7-4.9); Basophils % 0.3 % (0-1.3); Hematocrit 23.4 % (36.0-45.0); Lymphocytes % 20.6 % (15.3-44.8); MPV 9.1 fL (7.6-11.3); Protime INR 2.11; RBC Red Blood Cell Count 2.39 M/uL (3.86-4.86)
[2019-04-14 04:31] LABS: Potassium 4.2 mmol/L (3.5-5.1)
[2019-04-14] MEDS: ASPIRIN EC 81 MG TAB PO SCH (08:16)
[2019-04-14] MEDS: VITAMIN D 1000 UNIT TAB PO SCH (08:17)
[2019-04-14] MEDS: HYDROCODONE/APAP 5/325 MG TAB PO SCH ×3 (08:18→21:00)
[2019-04-14] MEDS: PROPAFENONE 225 MG CAP PO SCH ×3 (08:18→21:04)
[2019-04-14] MEDS: MULTIVIT W/ MINERAL TAB PO SCH (08:18)
[2019-04-14] MEDS: ALISKIREN 150 MG PO SCH (08:19)
[2019-04-14] MEDS: AMLODIPINE 5 MG TAB PO SCH (08:20)
[2019-04-14] MEDS: WARFARIN SODIUM 4 MG TAB PO SCH (08:20)
[2019-04-14] MEDS: hydroCHLOROthiazide 12.5 MG CAP PO SCH (08:20)
[2019-04-14] MEDS: PSYLLIUM 1 PKT PO SCH ×3 (08:21→21:03)
[2019-04-14] MEDS: HOME MED 1 EA UNK (Cyclosporine [Restasis] 1 DROP) EACH EYE SCH ×2 (08:22→21:00)
[2019-04-14] MEDS: [UNRECOGNIZED DRUG - OTHER] PO SCH (08:23)
[2019-04-14] MEDS: ATORVASTATIN 10 MG TAB PO SCH (21:04)
[2019-04-14] MEDS: DOCUSATE NA/SENNA CONC 1 TAB PO SCH (21:04)
--- NOTE | 2019-04-14 22:29 | PN ---
Date of Progress Note: 04/14/2019 I am called by Dr. Bella to see her again as she has some complaints of weakness in her right foot. Physical Examination: She may have some numbness at the interdigital area between the first and second toes. She says that the right lower extremity is somewhat different than the left as far as her sensation, but she defin itely says she does have sensation and just feels a little different. With regard to examination. S he does not appear to have any trauma related to her knee and there is no significant swelling of the foot or ankle. She does have fair minus strength of the EHL as well as the tibialis anterior, altho ugh there does appear obviously to be some weakness. Assessment: Decreased function of the perineal portion of the sciatic nerve. The actual point of dy sfunction is somewhat unclear. I think that she should gradually improve as this appears to be more of a neurapraxia than a complete loss of function, although an AFO could be used to help with ambulat ion and avoid dragging the foot or ankle sprain. I will also speak with Dr. Bella. There is a questi on of whether or not neurology could get involved at least for baseline. I will discuss this with Dr Ciera Bella. /TAHIR Voice ID: [id number] Report ID: [id number]
--- NOTE | 2019-04-14 23:47 | PN ---
Date of Progress Note: 04/14/2019 Subjective: Patient was seen this morning for followup. No new complaints or problems reported by lalito aguilar. She was sitting in the chair. Today is the first day I saw her sitting in the chair. She d id have bowel movement yesterday after Dulcolax rectal suppository and Fleet enema. Denies any abdom inal pain, nausea, vomiting. Objective: Vital Signs: Reviewed. HEENT: Unremarkable. Lungs: Clear to auscultation. Heart: Sounds normal. Abdomen: Soft. Bowel sounds normal. No guarding, rigidity, tenderness, or distention. Extremities: No leg edema. Neurologic: Patient reported today that she was having trouble moving her right lower extremity, whi ch is her right foot. She was not able to move which like the way she was moving her left foot and u heydi exam, it was noted that patient had right foot drop. Denies any tingling, numbness and her sensa tion is intact. Laboratory Data: White count 8.4, hemoglobin 8.2, platelets 174. INR 2.11. Sodium 137, potassium 4 .2, chloride 101, bicarb 31, BUN 22, creatinine 0.89, glucose 101. Impression: 1.Right superior and inferior pubic ramus fracture. 2.Right sacral ala fracture. 3.Right foot drop. 4.Chronic anticoagulation therapy. 5.Atrial fibrillation. 6.Hypertension. 7.Anemia. Plan: We will continue current medications. Continue current pain medication. Physical therapy to continue to work with patient. Orthopedic surgeon, Dr. Bello was requested to evaluate the patie nt for right foot drop and he did evaluate and contacted me and he recommended Neurology consultation . We will request consultation from neurologist. Meanwhile, continue current physical therapy and other current medical management. Continues on warfarin. DARWIN/MODL Voice ID: [id number] Report ID: [id number]
[2019-04-15] MEDS ORDERED: ACETAMINOPHEN 500 MG TAB PO PRN (06:48)
[2019-04-15] MEDS: HOME MED 1 EA UNK (Cyclosporine [Restasis] 1 DROP) EACH EYE SCH ×2 (09:00→21:00)
[2019-04-15] MEDS: [UNRECOGNIZED DRUG - OTHER] PO SCH (09:00)
[2019-04-15] MEDS: AMLODIPINE 5 MG TAB PO SCH (09:18)
[2019-04-15] MEDS: MULTIVIT W/ MINERAL TAB PO SCH (09:18)
[2019-04-15] MEDS: PSYLLIUM 1 PKT PO SCH ×3 (09:18→21:20)
[2019-04-15] MEDS: hydroCHLOROthiazide 12.5 MG CAP PO SCH (09:19)
[2019-04-15] MEDS: ASPIRIN EC 81 MG TAB PO SCH (09:19)
[2019-04-15] MEDS: VITAMIN D 1000 UNIT TAB PO SCH (09:19)
[2019-04-15] MEDS: ALISKIREN 150 MG PO SCH (09:20)
[2019-04-15] MEDS: PROPAFENONE 225 MG CAP PO SCH ×3 (09:20→21:19)
[2019-04-15] MEDS: WARFARIN SODIUM 4 MG TAB PO SCH (09:24)
[2019-04-15] MEDS: HYDROCODONE/APAP 5/325 MG TAB PO PRN (14:06)
--- NOTE | 2019-04-15 20:02 | RAD REPORT ---
EXAM DESCRIPTION: MRI - C Spine Wo Cont- 04/15/2019 7:52 pm CLINICAL HISTORY: foot drop Neck pain, radiculopathy COMPARISON: Hip Right Wo Con dated 04/10/2019; Hip Right 2 View dated 04/10/2019 FINDINGS: Cervical vertebral bodies are normal in height and alignment. No suspicious marrow edema or marrow replacing process. No fracture or traumatic subluxation. The craniocervical junction is normal. C2-3 level: Mild central disc bulge. C3-4 level: Small posterior osteophyte/ disc complex is present with mild left-sided facet hypertroph y. Mild left exit foraminal narrowing is present. C4-5 level: Moderate posterior osteophyte/ disc complex is present attenuating the anterior subarachn oid space. C5-6 level: Moderate posterior osteophyte/ disc complex is present attenuating the anterior subarachn oid space contacting anterior cord. Mild uncovertebral facet spurring mildly narrowing both exit fora castro. C6-7 level: Mild posterior osteophyte/ disc complex is present attenuating the anterior subarachnoid space. Uncovertebral spurring is present bilaterally mildly narrowing both exit foramina. C7-T1 level: No significant findings. Cervical cord is normal in size and signal. IMPRESSION: Mild to moderate lower cervical degenerative changes are present. No high-grade canal or foraminal stenosis at any level.
--- NOTE | 2019-04-15 20:17 | RAD REPORT ---
EXAM DESCRIPTION: MRI - Lumbar Spine Wo Con- 04/15/2019 8:04 pm CLINICAL HISTORY: foot drop Radiculopathy COMPARISON: <Comparisons> FINDINGS: Vertebral body heights are within normal limits. No aggressive marrow pattern is observed. No fracture is suspected. The conus medullaris terminates at a normal level. No thickening of the cauda equina or clumping of n erve roots seen. L1-2 level: Asymmetric disc bulge to the right is present with endplate osteophytes. Mild narrowing t he right exit foramen is seen. L2-3 level: Mild posterior disc bulge mild facet and ligamentum flavum hypertrophy. No canal foramina l stenosis of significance. L3-4 level: 5 mm degenerative anterolisthesis is present of L3 on 4 with broad-based posterior disc b ulge with moderate facet and ligamentum flavum hypertrophy. Moderate central canal stenosis is seen. No significant exit foraminal stenosis. L4-5 level: 6 mm degenerative anterolisthesis of L4 on 5. Broad-based posterior disc bulge is present asymmetric to the left. Mild facet ligamentum flavum hypertrophy seen. Left lateral recess is mildly attenuated moderate left exit foraminal narrowing. L5-S1 level: No significant findings. IMPRESSION: Multilevel degenerative spondylosis is seen of the lumbar spine with findings most sever e at L3-4 and L4-5 as detailed.
[2019-04-15] MEDS: DOCUSATE NA/SENNA CONC 1 TAB PO SCH (21:19)
[2019-04-15] MEDS: ATORVASTATIN 10 MG TAB PO SCH (21:31)
--- NOTE | 2019-04-15 23:47 | PN ---
Date of Progress Note: 04/15/2019 Subjective: Patient was seen this morning for followup. She was sitting on the bedside commode. No new complaints or problems reported. Objective: Vital Signs: Reviewed. HEENT: Unremarkable. Lungs: Clear to auscultation. Heart: Sounds normal. Abdomen: Soft. Bowel sounds normal. No guarding, rigidity, tenderness, or distention. Extremities: No leg edema. Impression: 1.Right superior and inferior pubic ramus fracture. 2.Right sacral ala fracture. 3.Atrial fibrillation. 4.Hypertension. 5.Chronic anticoagulation therapy. 6.Anemia. 7.Constipation. Plan: The patient's constipation problem has resolved. We will continue current medication. Get spaulding says that her pain has improved, where she does not need to continue to take her narcotic pain medi cation, which is hydrocodone on a scheduled basis and I have asked her to use that on as needed basis and , but we have discontinued her scheduled dose of hydrocodone. The patient's insurance has denied inpatient hospital admission and yesterday after social service notified me, I did reach out to the patient's insurance and requested [id number] review, which will happen tomorrow and the patient was made aware of this today. Yesterday, she did ambulate with physical therapy. She had to stop frequently, but she was able to walk all over entire floor once. Today, she will try to walk m ore. She is requesting for a walker and social service was requested to assist with that. Depending on how she does, we will decide if the patient is stable enough to go home at some point, instead of going to rehab or detention facility considering improvement that we see. I will see her rowdy rrow for followup. Possible discharge in the next 1 or 2 days depending on her condition. We will r epeat blood work tomorrow morning. DARWIN/MODL Voice ID: [id number] Report ID: [id number]
--- NOTE | 2019-04-16 01:55 | CON ---
Additional Referring Physician: Timothy Bello MD. Reason For Consultation: Consultation was called because of right foot drop. History Of Present Illness: Ms. Dougherty is an 83-year-old patient who fell while walking her dog resulting in pelvic fracture involving the right superior pubic ramus and a nondisplaced fracture of the left inferior pubic ramus. The right pubic ramus fracture was mildly displaced. She said she was walking her dog with the leash wrapped around her waist and holding into the leash when her dog tried to run after someone pulling her down. She landed on the right side and developed pain in the right hip and could not stand and bear weight. She came into [facility] and was evaluated by the ER physicians. She has noted since the fall she has had significant weakness lifting her right foot. She can lift the right leg and thigh. There is also some numbness in the right anterior leg. She denies any pain in the lower back or neck radiating into her lower or upper extremities. Since onset, these symptoms have not changed. She has not had any improvement yet in the right foot drop. Her cervical spine MRI did not show any significant disk herniation or spinal cord or nerve root compression. There is mild to moderate degeneration at the disks, but no again high-grade stenosis seen. The lumbar spine MRI identified multilevel degenerative spondylosis with findings being most severe at L3-4 and L4-5. There was at L3-4, a 5 mm degenerative anterolisthesis of L3 on L4 with broad- based posterior disk bulge and moderate facet and ligamentum flavum hypertrophy. There is moderate central canal stenosis. No significant nerve root stenosis. At the L4-5 level, there is a 6 mm degenerative anterolisthesis at L4 and L5 with broad-based posterior disk herniation, asymmetric to the left with left lateral recess mildly attenuated and left exit foraminal narrowing. Past Medical History: Hypertension, atrial fibrillation, reported prior stroke with good recovery, and pneumonia along with history of MRSA. Surgical History: Open reduction internal fixation of left calcaneal fracture and cataract surgery. Social History: No alcohol, tobacco, or IV drug use. Family History: Noncontributory. Allergies: AMIODARONE, COZAAR, LISINOPRIL, TOPROL. Medications: At home: Amlodipine 5 mg daily; aspirin 81 mg daily; Raven-C 1000 mg daily; hydrochlorothiazide 12.5 mg daily; PreserVision Lutein daily; Tekturna 150 mg daily; Coumadin 4 mg alternating with 2 mg every other day. Review of Systems: She has no recent fevers, chills, nausea, vomiting, myalgias, arthralgias, weight change, rash, psychiatric complaints, or gastrointestinal issues. Physical Examination: Vital Signs: Blood pressure 116/54, pulse 84, respiratory rate 16, temperature 97.8, oxygen saturation 99% on room air. Pain level of 3. Weight 125 pounds, height 5 feet 2 inches. General: Ms. Dougherty is sitting in a chair beside her bed. She is in no acute distress. HEENT: She is normocephalic, atraumatic. Sclerae are anicteric. Oropharynx is moist and pink. Neck: Supple. Chest: Clear. Heart: Irregularly irregular. Abdomen: Soft. Extremities: Show no significant edema, cyanosis, or clubbing. Neurologic: Alert, oriented to situation, place, and person. Follows commands appropriately. Cranial nerves show no focal deficits. Motor examination of the upper extremities. She has 5/5 proximally and distally. Lower extremity on the left proximally and distally 5/5, on the right side proximally 4+/5 with some pain limiting the movement given her pubic rami fracture. Distally, she is unable to dorsiflex her right foot. She does have some plantar flexion strength, perhaps around 3 to 4, however, she is limited somewhat by pain from the pelvic fracture. Sensory examination reveals a decreased to light touch in the right L5 distribution, also match to the superficial peroneal distribution on the right. Sensation intact in the left. Coordination intact in upper and lower extremities. She has an antalgic painful gait guarding given a pelvic fracture. Laboratory Studies: White blood cell count 8.4, hemoglobin 8.2, hematocrit 23.4 , platelets 174. Coagulation panel shows INR 2.11. Chemistries show calcium 8.3, creatinine 0.89. Sodium, potassium, and chloride are all unremarkable. Urinalysis was normal. Please note, head CT scan after a fall showed no fracture and no significant abnormality. There is an area in the right frontal lobe measuring 2 cm that extends into the right caudate and it appears to be an old infarct. An additional old frontal lobe infarct is also suspected. Assessment: Ms. Dougherty is an 83-year-old patient with right footdrop, possibly traumatic after a fall. It is possible she did injure peroneal nerve and does have some sensory loss in the superficial distribution and weakness in the dorsiflexion. The MRI of the cervical and lumbar spine did not adequately explain her symptoms and do not show any significant nerve root compression or very significant spinal cord compression. Her recovery will possibly take several weeks or potentially longer given the likely crush injury she has suffered. The EMG nerve conduction may help to predict the speed of recovery depending on the degree of potential conduction block identified. She does have atrial fibrillation with apparent history of at least 2 chronic strokes and is on Coumadin with INR of 2.11. Would recommend a range of 2.5 to 3 for further reducing the risk of additional ischemic strokes from cardioembolic sources. Plan: 1. As indicated, continue with Coumadin. 2. She should have physical and occupational therapy to assist her recovery with pain management and hip fracture and encourage her to work on right foot dorsiflexion exercises. 3. Consider EMG nerve conduction study after discharge. 4. Pain maybe adequately managed with topicals in addition to using a TENS unit and minimum use of strong medications such as narcotics. 5. Patient may follow up in Dr. Kinsey's clinic for further neurological evaluation after discharge within 2 or so weeks. KANWAL Voice ID: [id number] Report ID: [id number] MTDD
[2019-04-16 05:59] LABS: Hematocrit 22.9 % (36.0-45.0); Lymphocytes % 22.6 % (15.3-44.8); MPV 9.1 fL (7.6-11.3); RBC Red Blood Cell Count 2.35 M/uL (3.86-4.86)
[2019-04-16 06:00] LABS: Absolute Lymphocytes (CBC) 1.3 K/uL (0.7-4.9); Basophils % 0.4 % (0-1.3)
[2019-04-16 06:12] LABS: Protime INR 2.65
[2019-04-16 06:22] LABS: Albumin 2.5 g/dL (3.4-5.0); Bilirubin Total 0.5 mg/dL (0.2-1.0); Potassium 4.3 mmol/L (3.5-5.1); Protein, Total 6.5 g/dL (6.4-8.2)
[2019-04-16] MEDS: ASPIRIN EC 81 MG TAB PO SCH (08:45)
[2019-04-16] MEDS: PROPAFENONE 225 MG CAP PO SCH ×3 (08:46→21:00)
[2019-04-16] MEDS: MULTIVIT W/ MINERAL TAB PO SCH (08:46)
[2019-04-16] MEDS: VITAMIN D 1000 UNIT TAB PO SCH (08:46)
[2019-04-16] MEDS: hydroCHLOROthiazide 12.5 MG CAP PO SCH (08:46)
[2019-04-16] MEDS: AMLODIPINE 5 MG TAB PO SCH (08:46)
[2019-04-16] MEDS: PSYLLIUM 1 PKT PO SCH ×3 (08:47→21:00)
[2019-04-16] MEDS: HOME MED 1 EA UNK (Cyclosporine [Restasis] 1 DROP) EACH EYE SCH ×2 (08:47→21:00)
[2019-04-16] MEDS: ALISKIREN 150 MG PO SCH (08:47)
[2019-04-16] MEDS: WARFARIN SODIUM 4 MG TAB PO SCH (08:52)
[2019-04-16] MEDS: [UNRECOGNIZED DRUG - OTHER] PO SCH (08:54)
[2019-04-16] MEDS: DOCUSATE NA/SENNA CONC 1 TAB PO SCH (20:54)
[2019-04-16] MEDS: ATORVASTATIN 10 MG TAB PO SCH (21:00)
--- NOTE | 2019-04-17 00:19 | PN ---
Date of Progress Note: 04/16/2019 Subjective: Patient was seen this morning for followup. She was lying in bed, not in distress. Objective: Vital Signs: Reviewed. HEENT: Unremarkable. Lungs: Clear to auscultation. Heart: Sounds normal. Abdomen: Soft. Bowel sounds normal. No guarding, rigidity, tenderness, or distention. Extremities: No leg edema. Laboratory Data: White count 6, hemoglobin 8, platelets 210. INR 2.65. Sodium 138, potassium 4.3, chloride 105, bicarb 29, BUN 21, creatinine 0.69, glucose 93. Liver function tests unremarkable. MR I of lumbar spine shows multilevel degenerative changes. MRI of cervical spine shows [id number] e lower cervical degenerative changes. No high-grade stenosis. Impression: 1.Fracture, right superior and inferior pubic ramus. 2.Fracture, right sacral ala. 3.Osteoarthritis, multiple sites. 4.Hypertension. 5.Anemia. 6.Chronic anticoagulation therapy. 7.Constipation. Plan: Patient's constipation is well controlled. Pain medication is controlling her pain with time pain medication and physical therapy. Her condition is improving. Yesterday, she was able to ambula te somewhat better compared to day before yesterday. She still has to take frequent breaks while wal chantel, but she was able to walk in the hallway 2 times yesterday she reported. I have encouraged her to continue to do so. She still continues to have right foot drop and Dr. Kinsey evaluated her fro Neurology and MRI was ordered by him. Results reviewed. We will see her tomorrow for followup dep ending on how her condition is tomorrow. We will decide whether we can possibly discharge her to go home tomorrow with home health and home physical therapy or not and Social Service was requested to jackelin fernández those arrangements. The patient's insurance company has denied inpatient rehab benefit for her. DARWIN/MODL Voice ID: [id number] Report ID: [id number]
[2019-04-17] MEDS: hydroCHLOROthiazide 12.5 MG CAP PO SCH (07:57)
[2019-04-17] MEDS: PSYLLIUM 1 PKT PO SCH (07:57)
[2019-04-17] MEDS: MULTIVIT W/ MINERAL TAB PO SCH (07:57)
[2019-04-17] MEDS: VITAMIN D 1000 UNIT TAB PO SCH (07:57)
[2019-04-17] MEDS: ASPIRIN EC 81 MG TAB PO SCH (07:57)
[2019-04-17] MEDS: WARFARIN SODIUM 4 MG TAB PO SCH (07:58)
[2019-04-17] MEDS: AMLODIPINE 5 MG TAB PO SCH (07:58)
[2019-04-17] MEDS: HOME MED 1 EA UNK (Cyclosporine [Restasis] 1 DROP) EACH EYE SCH (07:59)
[2019-04-17] MEDS: PROPAFENONE 225 MG CAP PO SCH (07:59)
[2019-04-17] MEDS: [UNRECOGNIZED DRUG - OTHER] PO SCH (07:59)
[2019-04-17] MEDS: ALISKIREN 150 MG PO SCH (08:00)
[2019-04-17 08:02] VITALS: BP 135/63
[2019-04-17 08:06] VITALS: O2SAT 98
[2019-04-17 08:07] VITALS: TEMP 96.8
--- NOTE | 2019-04-18 02:21 | DS ---
Date of Discharge: 04/17/2019 Disposition: Discharged to go home. Physical Examination: HEENT: Unremarkable. Lungs: Clear to auscultation. Heart: Sounds normal. Abdomen: Soft, bowel sounds normal. No guarding, rigidity, tenderness, or distention. Extremities: No leg edema. Laboratory Data: Labs done during this hospitalization, initial white count 12.5, hemoglobin 10.5, p latelets 211. Last white count from yesterday is 6, hemoglobin 8, platelets 210. Her INR is 2.30. Last INR yesterday was 2.65. Last chemistry from yesterday, sodium 138, potassium 4.3, chloride 105, bicarb 29, BUN 21, creatinine 0.69, glucose 93. Liver function tests unremarkable. Hospital Course: This is an 83-year-old pleasant female patient, who fell, and was brought into the emergency room. After she was evaluated in the ER, she was admitted to the hospital with fracture. Please see dictated H and P for more information. Patient had severe pain when she first came in and pain was bad enough that she could not even move in the bed as anytime she would even try to move a little bit to try to change position. She had excruciating pain. Pain medications were started and that actually did help to control her pain. She had some constipation problem. The constipation pro blem has resolved now. Her pain has improved. Physical therapy was consulted. Dr. Bello was co nsulted from Orthopedic Surgery and he did not suggest any surgical intervention and weightbearing as tolerated along with physical therapy was suggested. So, patient did start to ambulate with help of Physical Therapy. Over a period of last couple of days, her ambulation has improved outside her kemar m. During the course of this hospitalization, she did develop a right footdrop and Dr. Ace earl luated her and he suggested Neurology consultation. Dr. Kinsey was consulted. Dr. Tio fairbankse d MRI of cervical spine and lumbar spine. Results were reviewed. Her constipation problem has resol rancho. Patient is independent in regard to getting out of bed, so transferred while she is independent . She uses a walker to ambulate. Social Service was requested to assist the patient to get a walker at home. Patient's insurance company denied inpatient rehab benefit and over period of this hospita lization, her condition has improved well enough for her to go home with home health and home physica l therapy. Patient will be discharged to go home in stable condition today. Final Diagnoses: 1.Fracture, right superior and inferior pubic ramus and sacral ala. 2.Anemia, chronic. 3.Constipation. 4.Hypertension. 5.Hyperlipidemia. 6.Paroxysmal atrial fibrillation. 7.Chronic anticoagulation. 8.Allergic rhinitis. Discharge Medications And Instructions: 1.Patient is going to follow up at my office during week off on 04/19/2019 and to call office for ap pointment. 2.Take Tylenol 500 mg 4 times a day as needed for pain. 3.Patient may take Tylenol with Codeine 1 tablet by mouth 3 times a day as needed for pain and the p atient was given prescription for 15 tablets. DARWIN/MODL Voice ID: [id number] Report ID: [id number]
== END 2019-04-17 11:16 | disposition home or self-care (01) | DRG 536 ==
LOC: ER 08:50 → ERHOLD 13:42 → 4TH 15:14
PROVIDERS: ADMIT Internal Medicine; ATTEND Internal Medicine
DX: S32.591A Other specified fracture of right pubis, initial encounter for closed fracture (principal); S32.10XA Unspecified fracture of sacrum, initial encounter for closed fracture; W01.0XXA Fall on same level from slipping, tripping and stumbling without subsequent striking against object, initial encounter; Y93.K1 Activity, walking an animal; Y92.9 Unspecified place or not applicable; I10 Essential (primary) hypertension; D64.9 Anemia, unspecified; K59.00 Constipation, unspecified; I48.0 Paroxysmal atrial fibrillation; J30.9 Allergic rhinitis, unspecified; E78.5 Hyperlipidemia, unspecified; M19.90 Unspecified osteoarthritis, unspecified site; Z79.01 Long term (current) use of anticoagulants; Z86.73 Personal history of transient ischemic attack (TIA), and cerebral infarction without residual deficits; M21.371 Foot drop, right foot
CPT/HCPCS: 36415; 70450; 72141; 72148; 73700; 80048; 80053; 81003; 85025; 85610; 85730; 97110; 97112; 97116; 97161; 97530; 99285

== ENCOUNTER 2022-01-07 09:04 | Inpatient (IN) | payer OTHER ==
[2022-01-07] MEDS ORDERED: CYCLOBENZAPRINE 10 MG TAB ONE (09:50)
[2022-01-07] MEDS ORDERED: dexAMETHasone 10 MG/ML VIAL ONE (09:50)
[2022-01-07] MEDS ORDERED: MORPHINE 2 MG/ML SYR ONE (09:50)
[2022-01-07] MEDS ORDERED: NA CHLORIDE 0.9% 50 ML ONE ×2 (09:51→14:39)
[2022-01-07 09:52] LABS: Protime INR 2.72
[2022-01-07 10:01] LABS: Albumin 3.3 g/dL (3.4-5.0); Bilirubin Total 0.4 mg/dL (0.2-1.0); Potassium 3.8 mmol/L (3.5-5.1); Protein, Total 7.6 g/dL (6.4-8.2)
[2022-01-07 10:15] LABS: Absolute Lymphocytes (CBC) 1.1 K/uL (0.7-4.9); Lymphocytes % 10.3 % (15.3-44.8); MCV 93.5 fL (80-100); MPV 10.1 fL (7.6-11.3); RBC Red Blood Cell Count 2.46 M/uL (3.86-4.86)
--- NOTE | 2022-01-07 10:49 | RAD REPORT ---
EXAM DESCRIPTION: CTAbdomen Pelvis W Contrast - 01/07/2022 10:22 am CLINICAL HISTORY: Abdominal pain. acute back pain, hypertension COMPARISON: No comparisons TECHNIQUE: Biphasic CT imaging of the abdomen and pelvis was performed with 100 ml non-ionic IV cont rast. All CT scans are performed using dose optimization technique as appropriate and may include automated exposure control or mA/KV adjustment according to patient size. FINDINGS: Mild to moderate left basilar lung infiltrate is present with small bilateral pleural effu sions, greater on the left. This is most likely related to pneumonia. The liver, spleen, pancreas, adrenal glands and kidneys are within normal limits. No bowel obstruction, free air, free fluid or abscess. The appendix is normal. No evidence of signi ficant lymphadenopathy. Moderate multilevel degenerative spondylosis of the lumbar spine. Aortic atherosclerosis is present. IMPRESSION: Moderate left lower lobe developing pneumonia. Moderately severe degenerative spondylosis of the lumbar spine.
--- NOTE | 2022-01-07 11:52 | RAD REPORT ---
EXAM DESCRIPTION: RAD - Chest Single View - 01/07/2022 11:44 am CLINICAL HISTORY: pneumonia Chest pain. COMPARISON: <Comparisons> FINDINGS: Portable technique limits examination quality. Small to moderate opacity in the left lung base with small left pleural effusion, likely representing pneumonia. The remainder the lungs appear emphysematous but clear. The heart is mildly enlarged in s ize. No displaced fractures. IMPRESSION: Small to moderate left lung base pneumonia.
--- NOTE | 2022-01-07 13:35 | EDPHYS ---
Physician Documentation [facility] Name: Mima Dougherty Age: 86 yrs Sex: Female : 1935 Arrival Date: 01/07/2022 Time: 09:05 Bed 7 Private MD: ED Physician Chester Camarillo HPI: 01/07 09:11 This 86 yrs old Female presents to ER via EMS with complaints of Back Pain. rn 09:11 The patient presents with pain that is acute. The symptoms are located in the low back. rn 09:11 Onset: The symptoms/episode began/occurred yesterday. The pain does not radiate. rn Associated signs and symptoms: The patient has no apparent associated signs or symptoms, Pertinent negatives: abdominal pain, chest pain, fever, hematuria, incontinence, nausea, numbness, tingling, urinary retention. Modifying factors: The patient symptoms are alleviated by remaining still, the patient symptoms are aggravated by any movement. Severity of symptoms: At their worst the symptoms were moderate, in the emergency department the symptoms are unchanged. The patient has experienced a previous episode. The patient has not recently seen a physician. Pt reports acute low back pain, central, began yesterday without injury or lifting anything. NO bowel or bladder issues. NO weakness or numbness of lower extremities. No trauma. Has had spinal fractures in past. Reports pain started mild but now more painful with movement.. Historical: - Allergies: 09:07 Lisinopril; bp 09:07 Metoprolol Tartrate; bp 09:07 Amiodarone; bp 09:07 Cozaar; bp - Home Meds: 09:07 amlodipine 5 mg tab 1 tab once daily [Active]; aspirin 81 mg Oral chew 1 tab once daily bp [Active]; esster c 1000 mg daily [Active]; hydrochlorothiazide 12.5 mg Oral tab 1 tab once daily [Active]; lovastatin 20 mg Oral tab 1 tab once daily [Active]; Metamucil Smooth Texture Oral three times a day [Active]; PreserVision Lutein 226 mg-200 unit -5 mg-0.8 mg Oral cap daily [Active]; warfarin 2 mg Oral tab 1 tab once daily [Active]; warfarin 4 mg Oral tab 1 tab once daily [Active]; Tekturna 150 mg Oral tab 1 tab once daily [Active]; propafenone 225 mg Oral cp12 1 cap three times a day [Active]; - PMHx: 09:07 Atrial Fib; CVA; MRSA; pnumonia; bp - Immunization history:: Adult Immunizations up to date. - Social history:: Smoking status: Patient denies any tobacco usage or history of. - Family history:: not pertinent. - Hospitalizations: : No recent hospitalization is reported. ROS: 09:11 Constitutional: Negative for fever, chills, and weight loss, Eyes: Negative for injury, rn pain, redness, and discharge, ENT: Negative for injury, pain, and discharge, Neck: Negative for injury, pain, and swelling, Cardiovascular: Negative for chest pain, palpitations, and edema, Respiratory: Negative for shortness of breath, cough, wheezing, and pleuritic chest pain, Abdomen/GI: Negative for abdominal pain, nausea, vomiting, diarrhea, and constipation, Back: + mid/low back pain : Negative for injury, bleeding, discharge, and swelling, MS/Extremity: Negative for injury and deformity, Skin: Negative for injury, rash, and discoloration, Neuro: Negative for headache, weakness, numbness, tingling, and seizure. Exam: 09:11 Constitutional: This is a well developed, well nourished patient who is awake, alert, rn and in no acute distress. Head/Face: Normocephalic, atraumatic. Cardiovascular: Regular rate and rhythm. No pulse deficits. Respiratory: No increased work of breathing, no retractions or nasal flaring. Abdomen/GI: Soft, non-tender, no pulsatile masses Back: No spinal tenderness. + tenderness bilateral perilumbar regions Skin: Warm, dry MS/ Extremity: Pulses equal, no cyanosis. Neuro: Awake and alert, GCS 15, oriented to person, place, time, and situation. Motor strength 5/5 in all extremities. Sensory grossly intact. Vital Signs: 09:05 BP 155 / 60; Pulse 75; Resp 16; Temp 98; Pulse Ox 99% ; Weight 55.34 kg; Height 5 ft. 2 bp in. (157.48 cm); 09:07 BP 169 / 117; Pulse 71; Resp 16; Temp 97.6; Pulse Ox 99% on R/A; Weight 55.34 kg (R); mb7 Height 5 ft. 2 in. (157.48 cm) (R); 10:30 BP 144 / 53; Pulse 73; Resp 16; Pulse Ox 91% ; bp 11:30 BP 156 / 57; Pulse 76; Resp 16; Pulse Ox 95% ; bp 13:00 BP 148 / 61; Pulse 76; Resp 16; Pulse Ox 94% ; bp 15:00 BP 135 / 55; Pulse 75; Resp 15; Pulse Ox 94% ; bp 17:00 BP 135 / 85; Pulse 72; Resp 16; Pulse Ox 98% ; bp 09:07 Body Mass Index 22.31 (55.34 kg, 157.48 cm) mb7 MDM: 09:08 Patient medically screened. rn 13:45 Differential diagnosis: arthritis, chronic back pain, Fatigue Fracture Osteoarthritis rn pneumonia, COVID, muscular pain. Data reviewed: vital signs, nurses notes, lab test result(s), radiologic studies, CT scan, plain films, and as a result, I will admit patient. Counseling: I had a detailed discussion with the patient and/or guardian regarding: the historical points, exam findings, and any diagnostic results supporting the discharge/admit diagnosis, lab results, radiology results, the need for further work-up and treatment in the hospital. Response to treatment: the patient's symptoms have mildly improved after treatment, and as a result, I will admit patient. Admission orders: after a detailed discussion of the patient's condition and case, the admit orders are written by me. ED course: Pt unable to get up from laying position 2/[address] and cxr shows pneumonia, consulted with Dr. Bella, will admit, requests rocephin as sole antibiotic for now given on antiarrhythmics. Pt states hx of known anemia, and again denies changes in stool/blood in stool/dark stool.. 01/07 09:09 Order name: CBC with Diff; Complete Time: 10:20 rn 01/07 09:09 Order name: CMP; Complete Time: 10:20 rn 01/07 09:09 Order name: PT-INR; Complete Time: 10:20 rn 01/07 09:09 Order name: Ptt, Activated; Complete Time: 10:20 rn 01/07 10:57 Order name: Blood Culture Adult (2) rn 01/07 10:57 Order name: Procalcitonin; Complete Time: 12:59 rn 01/07 09:09 Order name: CT Abd/Pelvis - IV Contrast Only; Complete Time: 10:56 rn 01/07 10:57 Order name: XRAY Chest (1 view); Complete Time: 12:01 rn 01/07 10:57 Order name: SARS-COV-2 RT PCR (Document "Date of Onset" if Symptomatic); Complete Time: rn 16:13 01/07 10:57 Order name: Lactate; Complete Time: 12:01 rn 01/07 09:09 Order name: IV Start; Complete Time: 09:37 rn Administered Medications: 09:30 Drug: Decadron - Dexamethasone 10 mg Route: IVP; Site: right forearm; bp 13:34 Follow up: Response: No adverse reaction bp 09:30 Drug: morphine 2 mg Route: IVP; Infused Over: 4 mins; Site: right forearm; bp 13:34 Follow up: Response: No adverse reaction; Pain is decreased bp 09:30 Drug: Flexeril (cyclobenzaprine) 10 mg Route: PO; bp 13:34 Follow up: Response: No adverse reaction bp 14:37 Drug: Rocephin (cefTRIAXone) 1 grams Route: IV; Rate: calculated rate; Site: right jd3 forearm; 19:04 Follow up: IV Status: Completed infusion; IV Intake: 100ml bp Disposition Summary: 01/07/22 13:34 Hospitalization Ordered Hospitalization Status: Inpatient Admission rn Provider: Cole Bella rn Location: Telemetry/[facility] (Inpatient) rn Condition: Stable rn Problem: new rn Symptoms: have improved rn Bed/Room Type: Standard rn Room Assignment: 206(01/07/22 18:42) em1 Diagnosis - Pneumonia, unspecified organism rn - Low back pain rn - Muscle weakness (generalized) rn Forms: - Medication Reconciliation Form rn - SBAR form rn Signatures: Dispatcher [employer] EDDebbi Schilling FNP-C FNP-Chester Caldwell MD MD rn Martinez, Eric em1 Ar Lama RN RN jIshmael Cox RN RN bp Corrections: (The following items were deleted from the chart) 13:46 13:45 Admission orders: after a detailed discussion of the patient's condition and rn case, the admit orders are written by me. rn 13:46 13:45 ED course: Pt unable to get up from laying position 2/[address] and rn cxr shows pneumonia, consulted with Dr. Bella, will admit, requests rocephin as sole antibiotic for now given on antiarrhythmics. . rn 18:42 13:34 rn em1
--- NOTE | 2022-01-07 13:35 | ER ---
Nurse's Notes [facility] Name: Mima Dougherty Age: 86 yrs Sex: Female : 1935 Arrival Date: 01/07/2022 Time: 09:05 Bed 7 Private MD: Diagnosis: Pneumonia, unspecified organism;Low back pain;Muscle weakness (generalized) Presentation: 01/07 09:05 Chief complaint: EMS states: SPONTANEOUS LUMBAR PAIN SINCE Y/D, DENIES TRAUMA OR bp STRAIN. Coronavirus screen: At this time, the client does not indicate any symptoms associated with coronavirus-19. Ebola Screen: No symptoms or risks identified at this time. Initial Sepsis Screen: Does the patient meet any 2 criteria? No. Patient's initial sepsis screen is negative. Does the patient have a suspected source of infection? No. Patient's initial sepsis screen is negative. Risk Assessment: Do you want to hurt yourself or someone else? Patient reports no desire to harm self or others. Onset of symptoms was January 06, 2022. 09:05 Method Of Arrival: EMS: [facility] bp 09:05 Acuity: LAN 4 bp 09:13 Acuity: LAN 3 iw Triage Assessment: 09:07 General: Appears distressed, uncomfortable, Behavior is cooperative, appropriate for bp age, anxious. Pain: Complains of pain in lumbar area. EENT: No deficits noted. Neuro: Level of Consciousness is awake, alert, obeys commands, Oriented to Appropriate for age. Cardiovascular: No deficits noted. Respiratory: No deficits noted. GI: No signs and/or symptoms were reported involving the gastrointestinal system. : No signs and/or symptoms were reported regarding the genitourinary system. Derm: No deficits noted. Musculoskeletal: Circulation, motion, and sensation intact. Range of motion: intact in all extremities. Historical: - Allergies: 09:07 Lisinopril; bp 09:07 Metoprolol Tartrate; bp 09:07 Amiodarone; bp 09:07 Cozaar; bp - Home Meds: 09:07 amlodipine 5 mg tab 1 tab once daily [Active]; aspirin 81 mg Oral chew 1 tab once daily bp [Active]; esster c 1000 mg daily [Active]; hydrochlorothiazide 12.5 mg Oral tab 1 tab once daily [Active]; lovastatin 20 mg Oral tab 1 tab once daily [Active]; Metamucil Smooth Texture Oral three times a day [Active]; PreserVision Lutein 226 mg-200 unit -5 mg-0.8 mg Oral cap daily [Active]; warfarin 2 mg Oral tab 1 tab once daily [Active]; warfarin 4 mg Oral tab 1 tab once daily [Active]; Tekturna 150 mg Oral tab 1 tab once daily [Active]; propafenone 225 mg Oral cp12 1 cap three times a day [Active]; - PMHx: 09:07 Atrial Fib; CVA; MRSA; pnumonia; bp - Immunization history:: Adult Immunizations up to date. - Social history:: Smoking status: Patient denies any tobacco usage or history of. - Family history:: not pertinent. - Hospitalizations: : No recent hospitalization is reported. Screenin:10 Abuse screen: Denies threats or abuse. Denies injuries from another. Nutritional bp screening: No deficits noted. Tuberculosis screening: No symptoms or risk factors identified. Fall Risk None identified. Assessment: 09:10 General: SEE TRIAGE NOTE. bp 10:43 Reassessment: PT RETURNED FROM CT. bp 12:46 Reassessment: No changes from previously documented assessment. Patient and/or family bp updated on plan of care and expected duration. Pain level reassessed. 15:00 Reassessment: No changes from previously documented assessment. Patient and/or family bp updated on plan of care and expected duration. Pain level reassessed. Vital Signs: 09:05 BP 155 / 60; Pulse 75; Resp 16; Temp 98; Pulse Ox 99% ; Weight 55.34 kg; Height 5 ft. 2 bp in. (157.48 cm); 09:07 BP 169 / 117; Pulse 71; Resp 16; Temp 97.6; Pulse Ox 99% on R/A; Weight 55.34 kg (R); mb7 Height 5 ft. 2 in. (157.48 cm) (R); 10:30 BP 144 / 53; Pulse 73; Resp 16; Pulse Ox 91% ; bp 11:30 BP 156 / 57; Pulse 76; Resp 16; Pulse Ox 95% ; bp 13:00 BP 148 / 61; Pulse 76; Resp 16; Pulse Ox 94% ; bp 15:00 BP 135 / 55; Pulse 75; Resp 15; Pulse Ox 94% ; bp 17:00 BP 135 / 85; Pulse 72; Resp 16; Pulse Ox 98% ; bp 09:07 Body Mass Index 22.31 (55.34 kg, 157.48 cm) mb7 ED Course: 09:05 Patient arrived in ED. bp 09:07 Triage completed. bp 09:07 Arm band placed on. bp 09:08 Chester Camarillo MD is Attending Physician. rn 09:08 Patient has correct armband on for positive identification. Bed in low position. Call mb7 light in reach. Side rails up X 1. Door closed. Noise minimized. Warm blanket given. 09:11 Ishmael Hodges, RN is Primary Nurse. bp 09:36 Inserted saline lock: 20 gauge in right forearm, using aseptic technique. Blood mb7 collected. 09:37 Ptt, Activated Sent. mb7 09:37 PT-INR Sent. mb7 09:37 CMP Sent. mb7 09:37 CBC with Diff Sent. mb7 10:24 CT Abd/Pelvis - IV Contrast Only In Process Unspecified. EDMS 11:46 XRAY Chest (1 view) In Process Unspecified. EDMS 13:33 Cole Bella MD is Hospitalizing Provider. rn 19:04 Primary Nurse role handed off by Ishmael Hodges, KUN tw5 19:04 Reina Sanchez is Primary Nurse. tw5 19:52 No provider procedures requiring assistance completed. Patient admitted, IV remains in kl place. Administered Medications: 09:30 Drug: Decadron - Dexamethasone 10 mg Route: IVP; Site: right forearm; bp 13:34 Follow up: Response: No adverse reaction bp 09:30 Drug: morphine 2 mg Route: IVP; Infused Over: 4 mins; Site: right forearm; bp 13:34 Follow up: Response: No adverse reaction; Pain is decreased bp 09:30 Drug: Flexeril (cyclobenzaprine) 10 mg Route: PO; bp 13:34 Follow up: Response: No adverse reaction bp 14:37 Drug: Rocephin (cefTRIAXone) 1 grams Route: IV; Rate: calculated rate; Site: right jd3 forearm; 19:04 Follow up: IV Status: Completed infusion; IV Intake: 100ml bp Medication: 09:10 VIS not applicable for this client. bp Intake: 19:04 IV: 100ml; Total: 100ml. bp Outcome: 13:34 Decision to Hospitalize by Provider. rn 19:18 Admitted to Med/surg Report called to attempted to call report. Was told nurse is not [facility] ready yet. 19:52 Condition: stable kl 19:53 Admitted to Med/surg Report called to Paulette Le kl 20:35 Patient left the ED. 5 Signatures: Dispatcher [employer] EDMS Alfreda Hurt RN RN kl Williams, Irene, RN RN iw Nieto, Roman, MD MD rn Martinez, Maria 5 Ar Lama RN RN jd3 Peltier, Brian, RN RN bp Wood, Tiffany 5 Мария Tapia 7 Corrections: (The following items were deleted from the chart) 12:46 10:43 Pulse 73bpm; Resp 16bpm; Pulse Ox 91%; bp bp
[2022-01-07] MEDS ORDERED: CEFTRIAXONE 1000 MG/VIAL ONE (14:39)
[2022-01-07] MEDS ORDERED: ONDANSETRON 4 MG/2 ML VIAL IV PRN (19:39)
[2022-01-07] MEDS ORDERED: ACETAMINOPHEN 500 MG TAB PO PRN (19:39)
[2022-01-07] MEDS ORDERED: CEFTRIAXONE 1,000 MG in NA CHLORIDE 0.9% 50 ML IVPB SCH (21:00)
[2022-01-07] MEDS ORDERED: PROPAFENONE HCL 150 MG TAB PO SCH (21:00)
[2022-01-07] MEDS: HYDRALAZINE HCL 25 MG TABLET PO SCH (22:09)
[2022-01-07] MEDS: WARFARIN SODIUM 3 MG TAB PO SCH (22:09)
[2022-01-07] MEDS: ATORVASTATIN 10 MG TAB PO SCH (22:09)
[2022-01-07] MEDS: PROPAFENONE HCL 150 MG TAB PO SCH (22:10)
[2022-01-08] MEDS: CEFTRIAXONE 1,000 MG in NA CHLORIDE 0.9% 50 ML IVPB SCH ×2 (01:40→14:02)
[2022-01-08 04:26] LABS: Absolute Lymphocytes (CBC) 1.3 K/uL (0.7-4.9); Hematocrit 21.3 % (36.0-45.0); Lymphocytes % 14.5 % (15.3-44.8); MCV 92.8 fL (80-100); MPV 9.9 fL (7.6-11.3)
[2022-01-08 04:27] LABS: Protime INR 2.54
[2022-01-08 04:31] VITALS: BMI 21.5
[2022-01-08 04:42] LABS: Potassium 3.9 mmol/L (3.5-5.1)
--- NOTE | 2022-01-08 08:19 | RAD REPORT ---
EXAM DESCRIPTION: RAD - Spine Lumbar W obliques - 01/08/2022 7:41 am CLINICAL HISTORY: back pain Radiculopathy COMPARISON: No comparisons FINDINGS: There is advanced multilevel degenerative spondylosis of the thoracolumbar spine with levo scoliosis. Multiple levels of disc thinning with vacuum disc degeneration posterior osteophyte is pre sent. Prominent facet arthrosis is noted lower lumbar levels. No acute fracture seen. Aortic atherosclerosis. IMPRESSION: Moderate to severe lumbar degenerative changes are present.
[2022-01-08] MEDS ORDERED: ASPIRIN EC 81 MG TAB PO SCH (09:00)
[2022-01-08] MEDS ORDERED: hydroCHLOROthiazide 25 MG TAB PO SCH (09:00)
[2022-01-08] MEDS ORDERED: ALISKIREN 150 MG PO SCH (09:00)
[2022-01-08] MEDS: HYDRALAZINE HCL 25 MG TABLET PO SCH ×2 (09:06→22:06)
[2022-01-08] MEDS: PROPAFENONE HCL 150 MG TAB PO SCH ×3 (09:06→22:07)
[2022-01-08 15:30] VITALS: O2SAT 98
[2022-01-08] MEDS: WARFARIN SODIUM 3 MG TAB PO SCH (16:24)
[2022-01-08] MEDS: ATORVASTATIN 10 MG TAB PO SCH (22:06)
[2022-01-09] MEDS: CEFTRIAXONE 1,000 MG in NA CHLORIDE 0.9% 50 ML IVPB SCH (02:46)
[2022-01-09 04:45] LABS: Protime INR 2.59
--- NOTE | 2022-01-09 05:22 | HP ---
Date of Admission: 01/07/2022 Chief Complaint: Back pain. History Of Present Illness: This is an 86-year-old pleasant white female patient who came into emerg ency room with few days history of lower back pain. She denies any fall or injury. No radiation of pain. Denies any cough, congestion. No fever. No shortness of breath. After she came into ER, she was evaluated and admitted to the hospital with pneumonia. The patient does not have any typical si gns or symptoms of pneumonia. Allergies: TO AMIODARONE, CAUSING SWELLING OF HER FACE. LISINOPRIL, CAUSING ANGIOEDEMA. LOSARTAN, CAUSING ANGIOEDEMA. BETA PARAS, CAUSING THROAT SWELLING. Medications: Tekturna 300 mg daily, aspirin 81 mg daily, warfarin 3 mg daily, propafenone 225 mg 3 t imes a day, lovastatin 20 mg daily, hydrochlorothiazide 12.5 mg daily, hydralazine 25 mg 2 times a da y. Review of Systems: Musculoskeletal: As mentioned above. All other systems reviewed and negative. Past Medical History: Significant for allergic rhinitis, hypertension, hyperlipidemia, paroxysmal at rial fibrillation, anemia, chronic, and she has been seeing professor of rhetoric but had a negative bone peewee ow biopsy on January 03, 2021, and osteopenia. Past Surgical History: Cataract surgery, tonsillectomy, and removal of benign breast cyst from the l eft breast, ablation for atrial fibrillation, and left foot surgery due to fracture. Family History: Father had coronary artery disease. Mother had thyroid disorder and hyperlipidemia. Sister, diabetes. Daughter has osteopenia. Social History: Prior history of smoking, not at present time. Use Of Alcohol: Occasional glass of wine. Physical Examination: Vital Signs: Temperature this morning 99.4, pulse 70, respiratory rate 16, blood pressure 120/58, oxy gen saturation 96%. Height 5 feet 2 inches, weight 118 pounds. General: Awake, alert, oriented, not in distress. HEENT: Head atraumatic, normocephalic. Conjunctivae nonerythematous. Sclerae white. Mouth, no thr ush or edema noted. Ears/Nose, no mass, lesion, discharge noted. Neck: Supple. No JVD, lymph nodes, bruit, thyromegaly noted. Lungs: Presence of some rales noted with diminished air entry in the lower lung robison. Not using a ny accessory muscles of respiration. Heart: Normal heart sounds, no murmur or gallop. Abdomen: Soft, bowel sounds normal. No guarding, rigidity, tenderness, mass, hepatosplenomegaly, dis tention, or bruit noted. Extremities: No leg edema. No calf tenderness. Skin: No rash, ulcer, cellulitis. Lymphatics: No lymph node enlargement in neck, supraclavicular, infraclavicular region. Neuro: No focal neurological deficit. Chest: Unremarkable. External Genitalia: Deferred. Rectal: Deferred. Laboratory Data: Yesterday, white count 10.3, hemoglobin 7.7, platelets 205. This morning, white co unt 9.1, hemoglobin 7.3, platelets 178. Yesterday, sodium 133, potassium 3.8, chloride 100, bicarb 25, BUN 19, creatinine 0.95, glucose 103. Liver function tests unremarkable. Procalcitonin less than 0.05. This morning, sodium 135, potassiu m 3.9, chloride 103, bicarb 27, BUN 22, creatinine 0.80, glucose 99. INR was 2.72 yesterday; this mo rning, it was 2.54. COVID-19 test negative. Chest x-ray shows small to moderate left lung base pneumonia. CAT scan of t he abdomen and pelvis with contrast shows moderate left lower lobe pneumonia, moderate to severe dege nerative spondylosis of lumbar spine. X-ray of lumbar spine shows advanced changes of osteoarthritis. Impression: 1.Pneumonia. 2.Lumbar spondylosis. 3.Paroxysmal atrial fibrillation. 4.Chronic anticoagulation therapy. 5.Anemia, chronic, unspecified. 6.Hyponatremia. 7.Hypertension. 8.Hyperlipidemia. 9.Allergic rhinitis. 10.Osteopenia. Plan: We will admit patient to hospital for further evaluation and management of this problem. Amanda ent is appropriate for inpatient and is expected to spend 2 midnights in the hospital. Hemodynamical ly, she is stable. She does not have any signs of respiratory failure. We will continue home medica tions per order and we will continue antibiotics as per order. Ambulation was encouraged. I will se e her tomorrow for followup. Depending on her condition tomorrow, we will decide if we can possibly discharge her to go home tomorrow or not. Details and plan of treatment discussed with the patient. DARWIN/MODL Voice ID: [id number]
[2022-01-09 08:46] VITALS: BP 158/67; TEMP 98.1
[2022-01-09] MEDS ORDERED: ALISKIREN 150 MG PO SCH ×2 (09:00)
--- NOTE | 2022-01-10 05:20 | DS ---
Date of Discharge: 01/09/2022 Disposition: Discharged to go home. Physical Examination: HEENT: Unremarkable. Lungs: Bilateral good equal air entry, not in respiratory distress. Some basal rales present. Heart: Heart sounds normal. Abdomen: Soft, bowel sounds normal. No guarding, rigidity, tenderness, or distention. Extremities: No leg edema. Laboratory Data: Her INR when she first came in was 2.72 and today it was 2.59. Initial white count 10.3, hemoglobin 7.7, platelets 205. Sodium 133, potassium 3.8, chloride 100, bicarb 25, BUN 19, cr eatinine 0.95, glucose 103. Liver function tests unremarkable. Procalcitonin 0.05. COVID-19 test n egative. Chest x-ray, hzgzn-ca-hzjkdgvo left lung base pneumonia. CAT scan of the abdomen and pelvi s showing moderate left lower lobe pneumonia, byfygkag-oc-xfniqw degenerative lumbar spine changes. X-ray of the lumbar spine showing advanced changes of osteoarthritis. Final Diagnoses: 1.Pneumonia. 2.Lumbar spondylosis. 3.Paroxysmal atrial fibrillation. 4.Chronic anticoagulation therapy. 5.Anemia, chronic, unspecified. 6.Hyponatremia. 7.Hypertension. 8.Hyperlipidemia. 9.Allergic rhinitis. 10.Osteopenia. Hospital Course: This is an 86-year-old pleasant female patient, admitted to the hospital after she came into the emergency room with complaints of back pain. Please see dictated H and P for more info rmation. The patient's back pain was due to her severe osteoarthritis of lumbar spine. Further eval uation in the emergency room revealed left lower lobe pneumonia for which she was given antibiotics. The patient started ambulating well and overall her condition has improved. Denies any fall or inju ry. There is no evidence of compression fracture. Today, she was discharged to go home in stable co ndition with following discharge medications. Discharge Medications: 1.Continue all prior home medications except change warfarin 3 mg, take 1 tablet by mouth daily. Pr ior to this hospital admission, she was taking 3 mg daily for 5 days a week and 4.5 mg daily for 2 da ys a week. 2.Follow up with manager shipping, Dr. Pulido, this week on or Saturday to get PT/INR test done at his office since her PT/INR is being managed by Dr. Pulido due to this drug interaction with anti biotic. I have instructed her to get extra blood work this week. 3.Follow up at my office next week on 01/17/2022 or 01/18/2022. Take following new medications and prescription was sent to her pharmacy: 1.Cefuroxime 250 mg take 1 tablet by mouth 2 times a day with food for 10 days. 2.Gabapentin 100 mg 2 times a day. 3.Tizanidine 2 mg 1 tablet by mouth daily at bedtime. 4.May use cugh-pox-etlbzqd Tylenol 500 mg 3 times a day as needed for back pain. 5.May use heating pad off and on to lower back as needed for back pain. 6.Walk with a walker in your house few times a day. DARWIN/MODL Voice ID: [id number] Report ID: [id number]
--- OUTSIDE RECORDS SUMMARY | 2022-01-17 21:22 | XMS REPORT | Continuity of Care Document ---
:1935 Author Organization [facility] t Address [address] [place] [address] Dr. Santos. [address] [place] [address] Care Team Providers Name Role Phone BRENDA PATINO Attending Clinician Unavailable Problems This patient has no known problems. Allergies, Adverse Reactions, Alerts This patient has no known allergies or adverse reactions. Medications This patient has no known medications. Procedures This patient has no known procedures. Encounters Start End Encounter Admission Attending Care Care Encounter Source Date/Time Date/Time Type Type Clinicians Facility Department ID 2021-01-03 2021-01-03 Outpatient VICKY PATINO MED [id number] VICKY 08:18:00 23:59:00 SHIN Results This patient has no known results.
== END 2022-01-09 09:43 | disposition home or self-care (01) | DRG 194 ==
LOC: ER 09:04 → ERHOLD 15:29 → 2ND 19:12
PROVIDERS: ADMIT Internal Medicine; ATTEND Internal Medicine
DX: J18.9 Pneumonia, unspecified organism (principal); E87.1 Hypo-osmolality and hyponatremia; I48.0 Paroxysmal atrial fibrillation; I10 Essential (primary) hypertension; E78.5 Hyperlipidemia, unspecified; D64.9 Anemia, unspecified; J30.9 Allergic rhinitis, unspecified; M85.80 Other specified disorders of bone density and structure, unspecified site; M47.896 Other spondylosis, lumbar region; Z79.01 Long term (current) use of anticoagulants; Z20.822 Contact with and (suspected) exposure to COVID-19
CPT/HCPCS: 36415; 71045; 72110; 74177; 80048; 80053; 83605; 84145; 85025; 85610; 85730; 87040; 94760; 96365; 96366; 96375; 97116; 97161; 97530; 99285; J1100; J2270; Q9967; U0003

== ENCOUNTER 2022-10-25 09:34 | Observation (INO) | payer OTHER ==
--- OUTSIDE RECORDS SUMMARY | 2022-10-25 09:37 | XMS REPORT | Continuity of Care Document ---
:1935 Author Organization [facility] t Address [address] [place] [id number] Care Team Providers Name Role Phone SHIN PATINO Attending Clinician Unavailable Problems This patient [...]
--- NOTE | 2022-10-25 10:23 | RAD REPORT ---
EXAM DESCRIPTION: CT - [id number] - 10/25/2022 10:07 am CLINICAL HISTORY: Trauma, head and neck injury. fall COMPARISON: No comparisons TECHNIQUE: Axial 5 mm thick images of the head were obtained. Axial 2 mm thick images of the cervical spine were obtained with sagittal and coronal reconstruction images generated and reviewed. All CT scans are performed using dose optimization technique as appropriate and may include automated exposure control or mA/KV adjustment according to patient size. FINDINGS: CT HEAD WITHOUT CONTRAST: No acute hemorrhage, hydrocephalus or extra-axial collection is identified.Mild generalized brain atr ophy is present with mild periventricular and deep white matter chronic microvascular ischemic change s.No areas of brain edema or midline shift. The paranasal sinuses and mastoids are clear.The calvarium is intact. Small posterior scalp hematoma. CT CERVICAL SPINE WITHOUT CONTRAST: No fracture or subluxation.4 mm degenerative anterolisthesis of C3 on 4 is noted. Mild disc thinning with small posterior osteophytes lower lumbar spine.No prevertebral soft tissues swelling is identifi ed. The odontoid is normal lateral masses are symmetric. IMPRESSION: No acute intracranial or cervical spine findings. 4 mm degenerative anterolisthesis of C3 on 4 noted.
[2022-10-25] MEDS ORDERED: ONDANSETRON 4 MG/2 ML VIAL ONE (10:56)
[2022-10-25] MEDS ORDERED: FAMOTIDINE 20 MG/2 ML VIAL IV ONE (10:56)
[2022-10-25 10:58] LABS: Absolute Lymphocytes (CBC) 0.9 K/uL (0.7-4.9); Hematocrit 32.7 % (36.0-45.0); Lymphocytes % 9.2 % (15.3-44.8); MCV 98.1 fL (80-100); MPV 8.5 fL (7.6-11.3); RBC Red Blood Cell Count 3.33 M/uL (3.86-4.86)
--- NOTE | 2022-10-25 11:08 | RAD REPORT ---
EXAM DESCRIPTION: RAD - Chest Single View - 10/25/2022 11:01 am CLINICAL HISTORY: generalized weaknes Chest pain. COMPARISON: Chest Pa And Lat (2 Views) dated 02/26/2022; Chest Pa And Lat (2 Views) dated 01/17/2022; Chest Single View dated 01/07/2022; Chest Pa And Lat (2 Views) dated 06/27/2020 FINDINGS: Portable technique limits examination quality. The lungs are moderately emphysematous grossly clear. The heart is moderately enlarged. No displaced fractures.Small left pleural effusion. IMPRESSION: Moderate COPD.
[2022-10-25 11:17] LABS: Albumin 3.7 g/dL (3.4-5.0); Bilirubin Total 0.4 mg/dL (0.2-1.0); Protein, Total 8.3 g/dL (6.4-8.2); Troponin High Sensitivity 17.1 pg/mL (<58.9)
--- NOTE | 2022-10-25 11:47 | ER ---
Nurse's Notes [facility] Name: Mima Dougherty Age: 86 yrs Sex: Female : 1935 Arrival Date: 10/25/2022 Time: 09:34 Bed 7 Private MD: Cole Bella C Diagnosis: Hypo-osmolality and hyponatremia;Anemia, unspecified;Nausea;Fall on same level, unspecified Presentation: 10/25 09:59 Chief complaint: Patient states: Fell and hit head 10/22. Has nausea since. Coronavirus ll1 screen: Client denies travel out of the [place] in the last 14 days. At this time, the client does not indicate any symptoms associated with coronavirus-19. Ebola Screen: Patient denies travel to an Ebola-affected area in the 21 days before illness onset. Initial Sepsis Screen: Does the patient meet any 2 criteria? No. Patient's initial sepsis screen is negative. Does the patient have a suspected source of infection? No. Patient's initial sepsis screen is negative. Risk Assessment: Do you want to hurt yourself or someone else? Patient reports no desire to harm self or others. Onset of symptoms was October 22, 2022. 09:59 Method Of Arrival: Wheelchair ll1 09:59 Acuity: LAN 3 ll1 Triage Assessment: 10:03 General: Appears in no apparent distress. Behavior is calm, cooperative, appropriate ll1 for age. Pain: Denies pain. Neuro: Reports head injury on Saturday. GI: Reports nausea. Historical: - Allergies: 10:02 Amiodarone; ll1 10:02 Cozaar; ll1 10:02 Lisinopril; ll1 10:02 Metoprolol Tartrate; ll1 - PMHx: 10:02 CVA; MRSA; pnumonia; Atrial Fib; ll1 - Immunization history:: Adult Immunizations up to date, Client reports receiving the 2nd dose of the Covid vaccine. - Social history:: Smoking status: Patient denies any tobacco usage or history of. Screenin:45 Abuse screen: Denies threats or abuse. Nutritional screening: No deficits noted. ap3 Tuberculosis screening: No symptoms or risk factors identified. 15:34 [facility] ED Fall Risk Assessment (Adult) History of falling in the last 3 months, ap3 including since admission Yes- single mechanical fall (1 pt) Confusion or Disorientation No (0 pts) Intoxicated or Sedated No (0 pts) Impaired Gait Yes (1 pt) Mobility Assist Device Used No (0 pt) Altered Elimination No (0 pt) Score/Fall Risk Level 3 or more points = High Risk. Assessment: 10:03 Reassessment: No changes from previously documented assessment. To CT via wheelchair. ll1 18:10 General:. ap3 Vital Signs: 09:59 BP 150 / 49; Pulse 54; Resp 17; Temp 98; Pulse Ox 100% ; Weight 55.34 kg; Height 5 ft. ll1 2 in. ; Pain 0/10; 11:16 BP 185 / 53; Pulse 58; Resp 17; Pulse Ox 99% ; ap3 09:59 Body Mass Index 22.31 (55.34 kg, 157.48 cm) ll1 09:59 Pain Scale: Adult ll1 ED Course: 09:37 Patient arrived in ED. rg4 09:37 Cole Bella MD is Private Physician. rg4 09:38 Antwan Roy PA is PHCP. [facility] 09:38 Alfredo Peña DO is Attending Physician. [facility] 10:02 Triage completed. ll1 10:03 Arm band placed on. ll1 10:08 CT Head C Spine In Process Unspecified. EDMS 10:20 Patient placed in an exam room, on a stretcher. ll1 10:45 Missed attempt(s): 20 gauge in left antecubital area. ap3 10:45 Missed attempt(s): 22 gauge in right forearm. ap3 10:46 Patient has correct armband on for positive identification. Bed in low position. Call ap3 light in reach. Side rails up X2. Adult w/ patient. Pulse ox on. NIBP on. Door closed. Noise minimized. Warm blanket given. 10:57 Amber Plummer, KUN is Primary Nurse. ap3 11:03 XRAY Chest (1 view) In Process Unspecified. EDMS 11:47 Cole Bella MD is Hospitalizing Provider. ms3 12:21 Urine Osmolality Sent. ap3 12:21 Urine Sodium Random Sent. ap3 15:33 No provider procedures requiring assistance completed. Inserted ER Nurse previously ap3 inserted 20g IV to right AC. Patient admitted, IV remains in place. Administered Medications: 11:14 Drug: Famotidine IVP 20 mg Route: IVP; Site: right antecubital; ap3 11:14 Drug: Ondansetron IVP 4 mg Route: IVP; Site: right antecubital; ap3 Medication: 15:34 VIS not applicable for this client. ap3 Outcome: 11:47 Decision to Hospitalize by Provider. ms3 15:34 Condition: good ap3 15:34 Instructed on the need for admit. 15:34 Admitted to ER Hold. Please see [facility] for further documentation. ap3 20:15 Patient left the ED. as6 Signatures: Dispatcher [employer] EDMS Antwan Roy PA PA jmm Garcia, Rubi rg4 Amber Plummer RN RN ap3 Luis Hurt RN RN ll1 Alfredo Peña, DO ms3 Jaspal Ambriz RN RN as6
--- NOTE | 2022-10-25 11:48 | EDPHYS ---
Physician Documentation [facility] Name: Mima Dougherty Age: 86 yrs Sex: Female : 1935 Arrival Date: 10/25/2022 Time: 09:34 Bed 7 Private MD: oCle Bella C ED Physician Alfredo Peña HPI: 10/25 10:02 This 86 yrs old Female presents to ER via Unassigned with complaints of Fall Injury. ms3 10:02 86-year-old female with past medical history of atrial fibrillation, hypertension, ms3 hypotension presents for nausea, generalized weakness that began on Saturday. Patient denies vomiting, chest pain, shortness of breath, fevers, chills, pain. Patient states she did have a fall on Saturday secondary to generalized weakness. Patient states she presents to the emergency department today as she called Dr. Bella's office and was instructed to come to the emergency department.. Historical: - Allergies: 10:02 Amiodarone; ll1 10:02 Cozaar; ll1 10:02 Lisinopril; ll1 10:02 Metoprolol Tartrate; ll1 - PMHx: 10:02 CVA; MRSA; pnumonia; Atrial Fib; ll1 - Immunization history:: Adult Immunizations up to date, Client reports receiving the 2nd dose of the Covid vaccine. - Social history:: Smoking status: Patient denies any tobacco usage or history of. ROS: 10:02 Cardiovascular: Negative for chest pain, and palpitations. Respiratory: Negative for ms3 shortness of breath, cough, wheezing, and pleuritic chest pain, MS/Extremity: Negative for injury and deformity, Skin: Negative for injury, rash, and discoloration. 10:02 Constitutional: Positive for poor PO intake, Generalized weakness. 10:02 Abdomen/GI: Positive for nausea, Negative for abdominal pain, vomiting, diarrhea. 10:02 Neuro: Positive for weakness. 10:02 All other systems are negative. Exam: 10:02 Constitutional: This is a well developed, well nourished patient who is awake, alert, ms3 and in no acute distress. Head/Face: Normocephalic, atraumatic. Neck: Trachea midline, no cervical lymphadenopathy. Supple, full range of motion without nuchal rigidity, or vertebral point tenderness. No Meningismus. Chest/axilla: Normal chest wall appearance and motion. Nontender with no deformity. Cardiovascular: Regular rate and rhythm with a normal S1 and S2. No gallops, murmurs, or rubs. Normal PMI, no JVD. No pulse deficits. Respiratory: Lungs have equal breath sounds bilaterally, clear to auscultation and percussion. No rales, rhonchi or wheezes noted. No increased work of breathing, no retractions or nasal flaring. Abdomen/GI: Soft, non-tender, with normal bowel sounds. No distension or tympany. No guarding or rebound. No evidence of tenderness throughout. Back: No spinal tenderness. No costovertebral tenderness. Full range of motion. Skin: Warm, dry with normal turgor. Normal color with no rashes, no lesions, and no evidence of cellulitis. MS/ Extremity: Pulses equal, no cyanosis. Neurovascular intact. Full, normal range of motion. Neuro: Awake and alert, GCS 15, oriented to person, place, time, and situation. Cranial nerves II-XII grossly intact. Motor strength 5/5 in all extremities. Sensory grossly intact. Cerebellar exam normal. Normal gait. 11:58 ECG was reviewed by the Attending Physician. ms3 Vital Signs: 09:59 BP 150 / 49; Pulse 54; Resp 17; Temp 98; Pulse Ox 100% ; Weight 55.34 kg; Height 5 ft. ll1 2 in. ; Pain 0/10; 11:16 BP 185 / 53; Pulse 58; Resp 17; Pulse Ox 99% ; ap3 09:59 Body Mass Index 22.31 (55.34 kg, 157.48 cm) ll1 09:59 Pain Scale: Adult ll1 MDM: 09:45 Patient medically screened. ms3 10:02 Differential diagnosis: closed head injury, contusion, sprain, strain, AK. ms3 11:54 Data reviewed: vital signs, nurses notes, lab test result(s), EKG, and as a result, I ms3 will admit patient. Consideration of Admission/Observation Patient was admitted/placed on observation. Management of patient was discussed with the following: Hospitalist: Discussed case with Dr. Bella. He would like urine sodium, urine osmolality, serum osmolality, TSH ordered prior to starting normal saline at 75 mL/h. 4 hours after normal saline started Chem-7 to be completed and results called to him. Discussed this plan with patient's nurse, Flory.. I considered the following discharge prescriptions or medication management in the emergency department Medications were administered in the Emergency Department. See MAR. Independent interpretation of the following test(s) in the Emergency Department EKG: See my EKG interpretation above anchorman: rate is 58 beats/min, Rhythm is normal sinus rhythm, regular, with no ectopy, Interpretation: normal rate, normal rhythm. Counseling: I had a detailed discussion with the patient and/or guardian regarding: the historical points, exam findings, and any diagnostic results supporting the discharge/admit diagnosis, lab results, radiology results, the need for further work-up and treatment in the hospital. ED course: Discussed patient's labs and imaging with Dr. Bella. He accepts patient as inpatient admission. Discussed plan for admission with patient and she understands and agrees with admission. Patient remains in stable condition in the emergency department. 10/25 09:46 Order name: CBC with Diff ms3 10/25 09:46 Order name: CMP; Complete Time: 11:23 ms3 10/25 09:46 Order name: Lipase; Complete Time: 11:23 ms3 10/25 09:46 Order name: Troponin High Sensitivity; Complete Time: 11:23 ms3 10/25 11:48 Order name: Urine Sodium Random ms3 10/25 11:48 Order name: Urine Osmolality ms3 10/25 11:48 Order name: Osmolality, Serum ms3 10/25 11:48 Order name: TSH ms3 10/25 11:56 Order name: CBC with Automated Diff EDMS 10/25 11:56 Order name: CBC with Automated Diff EDMS 10/25 11:56 Order name: Basic Metabolic Panel EDMS 10/25 12:24 Order name: CBC Smear Scan EDMS 10/25 09:46 Order name: XRAY Chest (1 view); Complete Time: 11:23 ms3 10/25 09:57 Order name: CT Head C Spine; Complete Time: 11:23 ms3 10/25 09:46 Order name: EKG; Complete Time: 09:47 ms3 10/25 11:56 Order name: Regular EDMS 10/25 09:46 Order name: IV Saline Lock; Complete Time: 10:56 ms3 10/25 09:46 Order name: Labs collected and sent; Complete Time: 10:56 ms3 10/25 09:46 Order name: EKG Strip; Complete Time: 11:13 ms3 10/25 09:46 Order name: Cardiac monitoring; Complete Time: 11:14 ms3 10/25 09:46 Order name: O2 Per Protocol; Complete Time: 10:44 ms3 10/25 09:46 Order name: O2 Sat Monitoring; Complete Time: 10:44 ms3 EC:58 Rate is 58 beats/min. Rhythm is regular. QRS [place] is Normal. CO interval is normal. ms3 Clinical impression: NSR w/ Non-specific ST/T Changes. Interpreted by me. Reviewed by me. Administered Medications: 11:14 Drug: Famotidine IVP 20 mg Route: IVP; Site: right antecubital; ap3 11:14 Drug: Ondansetron IVP 4 mg Route: IVP; Site: right antecubital; ap3 Disposition Summary: 10/25/22 11:47 Hospitalization Ordered Hospitalization Status: Inpatient Admission ms3 Provider: Cole Bella ms3 Condition: Stable ms3 Problem: new ms3 Symptoms: are unchanged ms3 Bed/Room Type: Standard ms3 Location: Intensive Care Unit(10/25/22 19:36) cg Room Assignment: 7-(10/25/22 19:36) cg Diagnosis - Hypo-osmolality and hyponatremia ms3 - Anemia, unspecified ms3 - Nausea ms3 - Fall on same level, unspecified ms3 Forms: - Medication Reconciliation Form ms3 - SBAR form ms3 Signatures: Dispatcher [employer] EDRoxi Villafuerte RN RN ss Garcia, Cindy, RN RN Amber Plummer RN RN ap3 Luis Hurt RN RN ll1 Alfredo Peña DO DO ms3 Corrections: (The following items were deleted from the chart) 18:01 11:47 Telemetry/MedSurg (Inpatient) ms3 ss 18:01 11:47 ms3 ss 19:36 18:01 [facility] ER HOLD ss cg 19:36 18:01 ERHOLD- ss cg
[2022-10-25] MEDS ORDERED: ACETAMINOPHEN 500 MG TAB PO PRN (11:52)
[2022-10-25] MEDS ORDERED: ONDANSETRON 4 MG/2 ML VIAL IV PRN (11:52)
[2022-10-25 12:23] LABS: Blood Morphology Comment NOT SEEN (NOT SEEN); Platelet Estimate ADEQ; White Blood Cell Scan OK (OK)
[2022-10-25] MEDS ORDERED: NA CHLORIDE 0.9% 1,000 ML ONE (12:57)
[2022-10-25] MEDS: NA CHLORIDE 0.9% 1,000 ML IV SCH ×2 (12:58→21:49)
[2022-10-25 13:41] VITALS: BMI 22.2
[2022-10-25 17:52] LABS: Potassium 5.1 mEq/L (3.5-5.1)
[2022-10-25 21:06] LABS: Protime INR 3.84
--- NOTE | 2022-10-26 00:13 | HP ---
Date of Admission: 10/25/2022 Chief Complaint: Fall, head injury, and nausea. History Of Present Illness: This is an 86-year-old very pleasant female patient who came into emerge ncy room with above-mentioned complaints. The patient reports that on 10/22/2022 while she was tryin g to get out of the bathtub, she fell down and she fell backwards and hit the back of her head. She denies any loss of consciousness. The patient reports that she was able to get up on her own, but ev er since this fall, she has been having nausea problem. Denies any vomiting. She did not seek any m edical attention until today. She has been having very poor appetite with this nausea and has not be en eating or drinking much for last 2 to 3 days. After she was evaluated today, she was admitted to the hospital with hyponatremia problem. Allergies: AMIODARONE CAUSING SWELLING OF THE FACE, LISINOPRIL CAUSING ANGIOEDEMA, LOSARTAN ALSO CAU SING ANGIOEDEMA, AND BETA-PARAS WITH THROAT SWELLING TYPE OF SIDE EFFECT. Current Medications: Tekturna 300 mg daily, aspirin 81 mg daily, furosemide 20 mg daily, gabapentin 100 mg 2 times a day, hydralazine 25 mg 2 times a day, hydrochlorothiazide 12.5 mg daily, lovastatin 20 mg daily, propafenone 225 mg 2 times a day, tizanidine 2 mg at bedtime, and warfarin 3 mg daily. Review of Systems: APPLICATIONS CONSULTANT: As mentioned above. GI: As mentioned above. Constitutional: As mentioned above. All other systems reviewed and negative. Past Medical History: Significant for allergic rhinitis, hypertension, hyperlipidemia, paroxysmal at rial fibrillation, anemia, and osteopenia. Past Surgical History: Cataract surgery, tonsillectomy, removal of left breast cyst, ablation for at rial fibrillation, and fracture surgery. Family History: Father had coronary artery disease. Mother had thyroid disorder and hyperlipidemia. Brother with lung cancer and kidney cancer. Sister with diabetes. Social History: Negative for smoking, but she did smoke in the past, but has not in many years and u se of alcohol with occasional glass of wine. Physical Examination: Vital Signs: Temperature 98.5, pulse 68, respiratory rate 18, blood pressure 102/87, and oxygen satu ration 98% on room air. Height 5 feet 2 inches, weight 121 pounds. General: Awake, alert, oriented, not in distress. HEENT: Posterior scalp has large area of contusion, approximately 5 cm in size and presence of dry b lood on the skin surface. There is no discharge and no bleeding. Neck: Supple. No JVD, lymph nodes, bruit, thyromegaly noted. Lungs: Bilateral good equal air entry. Clear to auscultation. No rhonchi. No rales. Heart: Normal heart sounds, no murmur or gallop. Abdomen: Soft, bowel sounds normal. No guarding, rigidity, tenderness, mass, hepatosplenomegaly, dis tention, or bruit noted. Extremities: No leg edema. No calf tenderness. Skin: No rash, ulcer, cellulitis. Lymphatics: No lymph node enlargement in neck, supraclavicular, infraclavicular region. Neuro: No focal neurological deficit. Chest: Unremarkable. External Genitalia: Deferred. Rectal: Deferred. Laboratory Data: White count 10, hemoglobin 10.9, and platelets 285. Sodium 123, potassium 4, chlor cleve 89, bicarb 24, BUN 30, creatinine 1.40, and glucose 87. Serum osmolality 271. Liver function te sts unremarkable. TSH 1.030. Urine osmolality 322. Urine sodium 55. Chest x-ray shows changes of COPD. CAT scan of the head was negative for any acute intracranial changes. Impression: 1.Concussion. 2.Head injury. 3.Hyponatremia. 4.Anemia, chronic, unspecified. 5.Chronic anticoagulation therapy. 6.Hypertension. 7.Hyperlipidemia. 8.Paroxysmal atrial fibrillation. Plan: Admit the patient to hospital for further evaluation and management of this problem. The [facility] ent is appropriate for inpatient and is expected to spend 2 midnights in hospital. For the patient's cerebral concussion, no need for any further intervention except monitoring. For hyponatremia, she was started on IV fluid normal saline and repeat sodium level after 4 to 5 hours of IV fluid administ ration was 128. We will repeat another blood work tomorrow morning. We will give symptomatic treatm ent for nausea. I have instructed the patient that in the future, any time she has any fall and head injury, she must come to emergency room for evaluation considering she is on anticoagulation therapy with warfarin and there is a risk of intracranial hemorrhage with that. For hypertension, we will c ontinue antihypertensive medication per order. She takes warfarin 3 mg daily, which is being managed by her compliance field technician Dr. Pulido and we will go ahead and get a PT/INR done stat and if INR is less t jean 3, we will give warfarin 3 mg p.o. x1 dose tonight. Warfarin dose as she reports. For hyperlipi demia we will continue her statin therapy. For her atrial fibrillation, she is on propafenone and we will continue that. Details and plan of treatment discussed with the patient. I will see her tomor row morning for followup. DARWIN/MODL Voice ID: [id number]
[2022-10-26 01:06] VITALS: O2SAT 95
[2022-10-26] MEDS: NA CHLORIDE 0.9% 1,000 ML IV SCH (01:20)
[2022-10-26 05:34] LABS: Hematocrit 28.7 % (36.0-45.0); Lymphocytes % 15.9 % (15.3-44.8); MCV 97.5 fL (80-100); MPV 8.8 fL (7.6-11.3); RBC Red Blood Cell Count 2.95 M/uL (3.86-4.86)
[2022-10-26 05:48] LABS: Potassium 3.9 mEq/L (3.5-5.1)
--- NOTE | 2022-10-26 07:02 | EKG ---
Test Date: 2022-10-25 Test Time: 11:04:26 Electrical Technology Instructor: ALP MEASUREMENT RESULTS: Intervals: Rate: 58 [place]: QRSD: 142 QT: 480 QTc: 471 [place]: P: [place]: QRS: 94 T: 36 INTERPRETIVE STATEMENTS: Wide QRS rhythm Right bundle branch block Abnormal ECG Compared to ECG 07/13/2017 09:48:00 Uncertain supraventricular rhythm now present Right bundle-branch block now present Sinus rhythm no longer present ST (T wave) deviation no longer present Electronically Signed On 10-26-22 06:59:59 CDT by Quentin Marquez
[2022-10-26 09:53] VITALS: BP 163/51; TEMP 97.1
--- NOTE | 2022-10-26 21:07 | DS ---
Date of Discharge: 10/26/2022 Discharge Disposition: Discharged to go home. Physical Examination: HEENT: Unremarkable except area of abrasion with dried blood on the posterior scalp, unchanged from yesterday. Lungs: Clear to auscultation. Heart: Sounds normal. Abdomen: Soft. Bowel sounds normal. No guarding, rigidity, tenderness, or distention. Extremities: No leg edema. Laboratory Data: Yesterday white count was 10, hemoglobin 10.9, and platelets 285. Today white coun t is 6, hemoglobin 9.7, and platelets 271. INR from yesterday was 3.84. Chemistry from yesterday wi th sodium 123, potassium 4, chloride 89, bicarb 24, BUN 30, creatinine 1.40, and glucose 87. TSH 1.0 30. Yesterday evening sodium level was 128. This morning sodium is 131, potassium 3.9, chloride 100 , bicarb 27, BUN 28, creatinine 1.07, and glucose 87. Hospital Course: This is an 86-year-old pleasant female patient who came into emergency room after s he fell down and had a head injury. The patient was having some nausea ever since her fall and head injury. She has not had a good appetite and has not had much to eat or drink in last few days and sh viktoriya came into emergency room yesterday with these complaints. After she was evaluated, she was admitte d to the hospital. CT scan of the head was negative for any acute intracranial changes. CT scan of the neck was done and did not show any acute traumatic changes. She was started on IV fluid normal s sixto at 75 cc/hour that actually did improve her sodium level. This morning her sodium level is 131 . She denies any other complaints. Her nausea problem has resolved when I talked to her this hyun cedricCiera Final Diagnoses: 1.Concussion. 2.Head injury and fall. 3.Hyponatremia. 4.Anemia, chronic, unspecified. 5.Anticoagulation therapy, chronic. 6.Hypertension. 7.Hyperlipidemia. 8.Paroxysmal atrial fibrillation. Discharge Medications And Instructions: 1.Continue all prior home medications except do not take any Coumadin, which is warfarin today and a s of tomorrow restart the Coumadin as prescribed by Dr. Pulido. 2.Follow up at my office to see me on , which is 11/01/2022. 3.The patient to come to my office for fasting blood work to be done on 10/31/2022 and we will order Chem 7 on him. 4.Follow with Dr. Caldwell to get workup done for sleep apnea. 5.Follow up with Dr. Pulido's office next week on Saturday, which is 10/29/2022 for PT/INR test. DARWIN/MODL Voice ID: [id number] Report ID: [id number]
== END 2022-10-26 07:15 | disposition home or self-care (01) ==
LOC: ER 09:34 → INTOOBSV 11:50 → ERHOLD 11:50 → 3RD-ICU 19:45
PROVIDERS: ADMIT Internal Medicine; ATTEND Internal Medicine
DX: S06.0X0A Concussion without loss of consciousness, initial encounter (principal); W18.2XXA Fall in (into) shower or empty bathtub, initial encounter; Y93.E1 Activity, personal bathing and showering; Y92.012 Bathroom of single-family (private) house as the place of occurrence of the external cause; E87.1 Hypo-osmolality and hyponatremia; D64.9 Anemia, unspecified; I10 Essential (primary) hypertension; E78.5 Hyperlipidemia, unspecified; I48.0 Paroxysmal atrial fibrillation; Z79.01 Long term (current) use of anticoagulants
CPT/HCPCS: 93005; 85025 ×2; 80048 ×2; 36415 ×2; 85610; 84300; 84443; 84484; 83690; 80053; 83930; 83935; 70450; 72125; 71045; J2405; J7030 ×2; G0378

== ENCOUNTER 2022-11-30 01:39 | Emergency (ER) | payer OTHER ==
--- OUTSIDE RECORDS SUMMARY | 2022-11-30 01:42 | XMS REPORT | Continuity of Care Document ---
:1935 Author Organization [facility] t Address [address] [place] [id number] Care Team Providers Name Role Phone SHIN [...]
[2022-11-30 02:11] LABS: Absolute Lymphocytes (CBC) 1.2 K/uL (0.7-4.9); Hematocrit 19.4 % (36.0-45.0); Lymphocytes % 23.8 % (15.3-44.8); MCV 99.7 fL (80-100); MPV 7.7 fL (7.6-11.3); RBC Red Blood Cell Count 1.94 M/uL (3.86-4.86)
[2022-11-30 02:15] LABS: Protime INR 3.39
[2022-11-30] MEDS ORDERED: CEFTRIAXONE 1000 MG/VIAL ONE (02:30)
[2022-11-30] MEDS ORDERED: FAMOTIDINE 20 MG/2 ML VIAL IV ONE (02:30)
[2022-11-30 02:31] LABS: Albumin 2.6 g/dL (3.4-5.0); Bilirubin Direct 0.1 mg/dL (0-0.2); Bilirubin Indirect, Calculated 0.1 mg/dL (0.2-0.8); Bilirubin Total 0.2 mg/dL (0.2-1.0); Magnesium 2.8 mg/dL (1.6-2.4); Protein, Total 6.4 g/dL (6.4-8.2); Troponin High Sensitivity 16.6 pg/mL (<58.9)
[2022-11-30] MEDS ORDERED: PANTOPRAZOLE 40 MG INJ ONE (03:08)
--- NOTE | 2022-11-30 03:36 | EDPHYS ---
Physician Documentation [facility] Name: Mima Dougherty Age: 87 yrs Sex: Female : 1935 Arrival Date: 11/30/2022 Time: 01:39 Bed 3 Private MD: ED Physician Kimo Isbell HPI: 11/30 02:04 This 87 yrs old Female presents to ER via EMS with complaints of WEAKNESS, nicolás FALLING AND NEAR SYNCOPE. 02:04 WEAKNESS. Onset: The symptoms/episode began/occurred 20 day(s) ago. Severity of nicolás symptoms: At their worst the symptoms were mild in the emergency department the symptoms are unchanged. The patient has not experienced similar symptoms in the past. Historical: - Allergies: 01:45 Amiodarone; rv 01:45 Cozaar; rv 01:45 Lisinopril; rv 01:45 Metoprolol Tartrate; rv - Home Meds: 01:45 amlodipine 5 mg tab 1 tab once daily [Active]; aspirin 81 mg Oral chew 1 tab once daily rv [Active]; esster c 1000 mg daily [Active]; hydrochlorothiazide 12.5 mg Oral tab 1 tab once daily [Active]; lovastatin 20 mg Oral tab 1 tab once daily [Active]; Metamucil Smooth Texture Oral three times a day [Active]; PreserVision Lutein 226 mg-200 unit -5 mg-0.8 mg Oral cap daily [Active]; propafenone 225 mg Oral cp12 1 cap three times a day [Active]; Tekturna 150 mg Oral tab 1 tab once daily [Active]; warfarin 4 mg Oral tab 1 tab once daily [Active]; warfarin 2 mg Oral tab 1 tab once daily [Active]; - PMHx: 01:45 Atrial Fib; CVA; MRSA; pnumonia; rv - Immunization history:: Adult Immunizations up to date. - Social history:: Smoking status: Patient denies any tobacco usage or history of. ROS: 02:05 Constitutional: Negative for fever, chills, and weight loss, Eyes: Negative for injury, nicolás pain, redness, and discharge, ENT: Negative for injury, pain, and discharge, Neck: Negative for injury, pain, and swelling, Cardiovascular: Negative for chest pain, palpitations, and edema, Respiratory: Negative for shortness of breath, cough, wheezing, and pleuritic chest pain, Abdomen/GI: Negative for abdominal pain, nausea, vomiting, diarrhea, and constipation, Back: Negative for injury and pain, : Negative for injury, bleeding, discharge, and swelling, MS/Extremity: Negative for injury and deformity, Skin: Negative for injury, rash, and discoloration, Psych: Negative for depression, anxiety, suicide ideation, homicidal ideation, and hallucinations, Allergy/Immunology: Negative for hives, rash, and allergies, Endocrine: Negative for neck swelling, polydipsia, polyuria, polyphagia, and marked weight changes, Hematologic/Lymphatic: Negative for swollen nodes, abnormal bleeding, and unusual bruising. 02:05 Neuro: Positive for dizziness, weakness. Exam: 02:05 Constitutional: This is a well developed, well nourished patient who is awake, alert, nicolás and in no acute distress. Head/Face: Normocephalic, atraumatic. Eyes: Pupils equal round and reactive to light, extra-ocular motions intact. Lids and lashes normal. Conjunctiva and sclera are non-icteric and not injected. Cornea within normal limits. Periorbital areas with no swelling, redness, or edema. ENT: Nares patent. No nasal discharge, no septal abnormalities noted. Tympanic membranes are normal and external auditory canals are clear. Oropharynx with no redness, swelling, or masses, exudates, or evidence of obstruction, uvula midline. Mucous membranes moist. Neck: Trachea midline, no thyromegaly or masses palpated, and no cervical lymphadenopathy. Supple, full range of motion without nuchal rigidity, or vertebral point tenderness. No Meningismus. Chest/axilla: Normal chest wall appearance and motion. Nontender with no deformity. No lesions are appreciated. Cardiovascular: Regular rate and rhythm with a normal S1 and S2. No gallops, murmurs, or rubs. Normal PMI, no JVD. No pulse deficits. Respiratory: Lungs have equal breath sounds bilaterally, clear to auscultation and percussion. No rales, rhonchi or wheezes noted. No increased work of breathing, no retractions or nasal flaring. Abdomen/GI: Soft, non-tender, with normal bowel sounds. No distension or tympany. No guarding or rebound. No evidence of tenderness throughout. Back: No spinal tenderness. No costovertebral tenderness. Full range of motion. Female : Normal external genitalia. MS/ Extremity: Pulses equal, no cyanosis. Neurovascular intact. Full, normal range of motion. Neuro: Awake and alert, GCS 15, oriented to person, place, time, and situation. Cranial nerves II-XII grossly intact. Motor strength 5/5 in all extremities. Sensory grossly intact. Cerebellar exam normal. Normal gait. Psych: Awake, alert, with orientation to person, place and time. Behavior, mood, and affect are within normal limits. 02:05 Skin: Exam negative for Appearance: Color: pale, Temperature: normal temperature, Moisture: normal moisture, petechiae, not noted, abscess, not appreciated, cellulitis, is not appreciated, induration, is not appreciated. Vital Signs: 01:43 BP 133 / 65; Pulse 62; Resp 19; Temp 97.4(O); Pulse Ox 92% on R/A; Weight 54.43 kg; rv Height 5 ft. 2 in. ; Pain 0/10; 03:00 BP 163 / 63; Pulse 66; Resp 17; Pulse Ox 100% on 2 lpm NC; jb4 04:00 BP 156 / 58; Pulse 66; Resp 18; Temp 98.1(TE); Pulse Ox 100% on 2 lpm NC; rv 05:00 BP 178 / 70; Pulse 66; Resp 16; Pulse Ox 100% on 2 lpm NC; jb4 06:00 BP 179 / 80; Pulse 67; Resp 16; Pulse Ox 100% on 2 lpm NC; jb4 01:43 Body Mass Index 21.95 (54.43 kg, 157.48 cm) rv 01:43 Pain Scale: Adult rv MDM: 01:46 Patient medically screened. nicolás 02:06 Differential Diagnosis altered mental status, sepsis. Differential Diagnosis: aortic nicolás aneurysm, cardiac arrhythmia, cerebrovascular accident, GI bleed, idiopathic syncope, vasovagal episode. Data reviewed: vital signs, nurses notes, EMS record, lab test result(s), EKG, radiologic studies, CT scan, plain films. Consideration of Admission/Observation Patient was admitted/placed on observation. Escalation of care including admission/observation considered. I considered the following discharge prescriptions or medication management in the emergency department Medications were administered in the Emergency Department. See 01:49 Order name: Basic Metabolic Panel; Complete Time: 02:41 nicolás 06/02 01:49 Order name: CBC with Diff; Complete Time: 02:41 [facility] 11/30 01:49 Order name: LFT's; Complete Time: 02:41 [facility] 11/30 01:49 Order name: Magnesium; Complete Time: 02:41 [facility] 11/30 01:49 Order name: NT PRO-BNP; Complete Time: 02:41 [facility] 11/30 01:49 Order name: PT-INR; Complete Time: 02:41 [facility] 11/30 01:49 Order name: Troponin HS; Complete Time: 02:41 [facility] 11/30 01:49 Order name: Lipase; Complete Time: 02:41 [facility] 11/30 01:49 Order name: Blood Culture Adult (2) [facility] 11/30 01:49 Order name: Lactate w/ 2H reflex if indic.; Complete Time: 02:41 [facility] 11/30 01:49 Order name: Type And Screen [facility] 11/30 02:56 Order name: Packed RBC Leukored [facility]IL 11/30 03:15 Order name: ABO/RH no charge; Complete Time: 03:29 [facility] 11/30 01:49 Order name: XRAY Chest (1 view) [facility] 11/30 01:49 Order name: CT Traumagram (Head C Spine CAP wo con) [facility] 11/30 01:49 Order name: EKG; Complete Time: 01:50 [facility] 11/30 01:49 Order name: Cardiac monitoring; Complete Time: 02:21 [facility] 11/30 01:49 Order name: EKG - Nurse/Tech; Complete Time: 02:21 [facility] 11/30 01:49 Order name: IV Saline Lock; Complete Time: 02:21 [facility] 11/30 01:49 Order name: Labs collected and sent; Complete Time: 02:21 [facility] 11/30 01:49 Order name: O2 Per Protocol; Complete Time: 02:21 [facility] 11/30 01:49 Order name: O2 Sat Monitoring; Complete Time: 02:21 [facility] 11/30 02:42 Order name: Transfuse; Complete Time: 04:04 nicolás Administered Medications: 02:30 Drug: Rocephin IV 1 grams Route: IV; Rate: per protocol; Site: right forearm; rv 02:31 Drug: Famotidine IVP 20 mg Route: IVP; Site: right forearm; rv 03:05 Drug: Pantoprazole IVP 40 mg Route: IVP; Site: left antecubital; rv 06:07 Drug: hydrALAZINE IVP 5 mg Route: IVP; Site: left antecubital; rv 06:07 Drug: hydrALAZINE PO 10 mg Route: PO; rv Disposition Summary: 11/30/22 03:35 Transfer Ordered Transfer Location: [facility] nicolás Reason: Higher level of care nicolás Condition: Stable nicolás Problem: new nicolás Symptoms: have improved nicolás Accepting Physician: to [facility](11/30/22 07:02) rv Diagnosis - Anemia, unspecified nicolás - GI Bleed/ Gastrointestinal hemorrhage, unspecified nicolás - Weakness nicolás - Syncope Near nicolás - Adverse effect of anticoagulant antagonists, vitamin K and other coagulants nicolás - Unspecified atrial fibrillation - history of nicolás Forms: - Medication Reconciliation Form nicolás - SBAR form nicolás Signatures: Dispatcher [employer] EDKimo Waller MD MD cha Vicente, Ronaldo RN RN rv Corrections: (The following items were deleted from the chart) 02:21 01:49 Mario ordered. nicolás rv 03:36 03:35 to [facility] nicolás nicolás 03:37 03:36 to [facility] nicolás nicolás 07:02 03:37 to [facility] nicolás rv
--- NOTE | 2022-11-30 03:36 | ER ---
Nurse's Notes [facility] Name: Mima Dougherty Age: 87 yrs Sex: Female : 1935 Arrival Date: 11/30/2022 Time: 01:39 Bed 3 Private MD: Diagnosis: Anemia, unspecified;GI Bleed/ Gastrointestinal hemorrhage, unspecified;Weakness;Syncope Near;Adverse effect of anticoagulant antagonists, vitamin K and other coagulants;Unspecified atrial fibrillation-history of Presentation: 11/30 01:43 Chief complaint: EMS states: pt found on the floor after trying to walk from bed to the bathroom. denies falling. generally weak for the past few weeks. Coronavirus screen: Vaccine status: Patient reports receiving the 2nd dose of the covid vaccine. Ebola Screen: Patient negative for fever greater than or equal to 101.5 degrees Fahrenheit, and additional compatible Ebola Virus Disease symptoms Patient denies exposure to infectious person. Patient denies travel to an Ebola-affected area in the 21 days before illness onset. Initial Sepsis Screen: Does the patient meet any 2 criteria? No. Patient's initial sepsis screen is negative. Does the patient have a suspected source of infection? No. Patient's initial sepsis screen is negative. Risk Assessment: Do you want to hurt yourself or someone else? Patient reports no desire to harm self or others. Onset of symptoms was November 30, 2022. 01:43 Method Of Arrival: EMS: [facility] rv 01:43 Acuity: LAN 3 rv Triage Assessment: 01:45 General: Appears uncomfortable, Behavior is calm, cooperative. Pain: Denies pain. EENT: rv No signs and/or symptoms were reported regarding the EENT system. Neuro: Level of Consciousness is awake, alert, obeys commands, Oriented to person, place, time, situation, Weakness. Cardiovascular: Capillary refill < 3 seconds. Respiratory: Reports shortness of breath at rest Airway is patent. GI: No signs and/or symptoms were reported involving the gastrointestinal system. : No signs and/or symptoms were reported regarding the genitourinary system. Historical: - Allergies: 01:45 Amiodarone; rv 01:45 Cozaar; rv 01:45 Lisinopril; rv 01:45 Metoprolol Tartrate; rv - Home Meds: 01:45 amlodipine 5 mg tab 1 tab once daily [Active]; aspirin 81 mg Oral chew 1 tab once daily rv [Active]; esster c 1000 mg daily [Active]; hydrochlorothiazide 12.5 mg Oral tab 1 tab once daily [Active]; lovastatin 20 mg Oral tab 1 tab once daily [Active]; Metamucil Smooth Texture Oral three times a day [Active]; PreserVision Lutein 226 mg-200 unit -5 mg-0.8 mg Oral cap daily [Active]; propafenone 225 mg Oral cp12 1 cap three times a day [Active]; Tekturna 150 mg Oral tab 1 tab once daily [Active]; warfarin 4 mg Oral tab 1 tab once daily [Active]; warfarin 2 mg Oral tab 1 tab once daily [Active]; - PMHx: 01:45 Atrial Fib; CVA; MRSA; pnumonia; rv - Immunization history:: Adult Immunizations up to date. - Social history:: Smoking status: Patient denies any tobacco usage or history of. Screenin:48 [facility] ED Fall Risk Assessment (Adult) History of falling in the last 3 months, rv including since admission Yes- single mechanical fall (1 pt) Confusion or Disorientation No (0 pts) Intoxicated or Sedated No (0 pts) Impaired Gait Yes (1 pt) Mobility Assist Device Used Yes (1 pt) Altered Elimination No (0 pt) Score/Fall Risk Level 0 - 2 = Low Risk Oriented to surroundings, Maintained a safe environment, Educated pt \T\ family on fall prevention, incl call for assistance when getting out of bed, Assessed \T\ reinforced patient's understanding of fall precautions, Provided non-skid footwear, Hourly rounding (assess needs \T\ fall precautionary measures) done, Used ambulatory aids as needed (educated on \T\ assisted with), Used gait belt as appropriate. Abuse screen: Denies threats or abuse. Denies injuries from another. Nutritional screening: No deficits noted. Tuberculosis screening: No symptoms or risk factors identified. Assessment: 04:00 General: Appears comfortable, Behavior is calm, cooperative. Pain: Denies pain. rv 04:00 Neuro: Level of Consciousness is awake, alert, obeys commands, Oriented to person, rv place, time, situation. Cardiovascular: Capillary refill < 3 seconds. Respiratory: Airway is patent Respiratory effort is even, unlabored. GI: No signs and/or symptoms were reported involving the gastrointestinal system. : No signs and/or symptoms were reported regarding the genitourinary system. PUREWICK IN PLACE. Vital Signs: 01:43 BP 133 / 65; Pulse 62; Resp 19; Temp 97.4(O); Pulse Ox 92% on R/A; Weight 54.43 kg; rv Height 5 ft. 2 in. ; Pain 0/10; 03:00 BP 163 / 63; Pulse 66; Resp 17; Pulse Ox 100% on 2 lpm NC; jb4 04:00 BP 156 / 58; Pulse 66; Resp 18; Temp 98.1(TE); Pulse Ox 100% on 2 lpm NC; rv 05:00 BP 178 / 70; Pulse 66; Resp 16; Pulse Ox 100% on 2 lpm NC; jb4 06:00 BP 179 / 80; Pulse 67; Resp 16; Pulse Ox 100% on 2 lpm NC; jb4 01:43 Body Mass Index 21.95 (54.43 kg, 157.48 cm) rv 01:43 Pain Scale: Adult rv ED Course: 01:42 Patient arrived in ED. rv1 01:43 Rolando Gao, RN is Primary Nurse. rv 01:45 Triage completed. rv 01:45 Maintain EMS IV. Dressing intact. Good blood return noted. Site clean \T\ dry. Gauge \T\ rv site: g18 LAC. 01:46 Kimo Isbell MD is Attending Physician. nicolás 01:48 Arm band placed on right wrist. rv 01:48 Patient has correct armband on for positive identification. Placed in gown. Bed in low rv position. Call light in reach. Side rails up X2. Client placed on continuous cardiac and pulse oximetry monitoring. NIBP monitoring applied. monitor technician on. 02:46 XRAY Chest (1 view) In Process Unspecified. EDMS 03:54 CT Traumagram (Head C Spine CAP wo con) In Process Unspecified. EDMS 04:03 Initiated transfer with Peg Uriarte at [facility]. rv1 05:17 Pt accepted to [facility] by Dr. Mcpherson. rv1 07:01 No provider procedures requiring assistance completed. IV discontinued, intact, rv bleeding controlled, No redness/swelling at site. Pressure dressing applied. Administered Medications: 02:30 Drug: Rocephin IV 1 grams Route: IV; Rate: per protocol; Site: right forearm; rv 02:31 Drug: Famotidine IVP 20 mg Route: IVP; Site: right forearm; rv 03:05 Drug: Pantoprazole IVP 40 mg Route: IVP; Site: left antecubital; rv 06:07 Drug: hydrALAZINE IVP 5 mg Route: IVP; Site: left antecubital; rv 06:07 Drug: hydrALAZINE PO 10 mg Route: PO; rv Medication: 01:48 VIS not applicable for this client. rv 04:00 Blood products: PRBCs X 1 unit given. See transfusion record. rv 06:25 Blood products: PRBCs X 1 unit given. rv Outcome: 03:35 ER care complete, transfer ordered by . nicolás 07:01 Transferred by ground EMS to [facility], Note: [facility] rv 07:01 Condition: stable 07:01 Instructed on the need for transfer. 07:02 Patient left the ED. rv Signatures: Dispatcher [employer] Kimo Velazco MD MD cha Bryson, James, RN RN jb4 Rolando Gao RN RN rv Clary Chun rv1
[2022-11-30] MEDS ORDERED: NA CHLORIDE 0.9% 250 ML ONE (03:50)
[2022-11-30] MEDS ORDERED: HYDRALAZINE HCL 10 MG TABLET ONE (06:10)
[2022-11-30] MEDS ORDERED: HYDRALAZINE HCL 20 MG/ML VIAL ONE (06:10)
[2022-11-30 07:27] VITALS: O2SAT 100
[2022-11-30 07:29] VITALS: TEMP 98.1
[2022-11-30 07:33] VITALS: BP 179/80
--- NOTE | 2022-11-30 12:20 | RAD REPORT ---
EXAM DESCRIPTION: CT - Head C Spine Cap Wo Con - 11/30/2022 5:22 am CLINICAL HISTORY: PAIN COMPARISON: 10/25/2022 TECHNIQUE: Axial CT of the head obtained from the skull apex to the skull base without contrast. Axi al CT images of the cervical spine obtained from the skull base through the thoracic inlet. Sagittal and coronal reformatted images available. CT of the chest, abdomen and pelvis performed without IV co ntrast. Suboptimal evaluation of the soft tissues, solid organs, and vasculature due to lack of IV co ntrast. This exam was performed according to our departmental dose-optimization program, which includ es automated exposure control, adjustment of the mA and/or kV according to patient size and/or use of iterative reconstruction technique. FINDINGS: CT head: No acute intracranial hemorrhage identified. No mass, mass effect, shift of the midline, abnormal ext ra-axial fluid collection or CT evidence of acute ischemic change identified. The ventricular system and sulcal spaces are mildly enlarged compatible with mild cerebral atrophy. Scattered areas of hyp odensity throughout the supratentorial white matter are nonspecific and may be related to chronic sma ll vessel ischemic change. Focal encephalomalacia in the inferior right frontal lobe compatible with remote insult.. The visualized paranasal sinuses and mastoid air cells are well aerated. No skull fracture identifi ed. Visualized orbits and globes are unremarkable. Atherosclerotic calcification of the intracranial internal carotid arteries. Cervical CT: Straightening of the cervical lordosis may be secondary to patient positioning. 4 mm degenerative ant erolisthesis of C3 over C4. The atlantoaxial, atlantodental, and occipitoatlantal intervals are pre served. No acute cervical spine fracture identified. Subacute compression fracture of T2 with appro ximately 10% loss of anterior vertebral body height. No retropulsion of fracture fragments. Prevert ebral soft tissues are unremarkable. Moderate to severe multilevel loss of intervertebral disc height with endplate spondylosis, uncoverte bral spurring, and facet arthropathy. Visualized skull base is intact. No fracture of the visualized facial bones. Visualized mastoid air c ells and paranasal sinuses are well aerated. Visualized thyroid is unremarkable. No cervical lymphadenopathy. No pneumothorax in the visualized lung apices. Chest: Thyroid: No abnormalities of the visualized thyroid. Great Vessels: Great vessels have normal anatomic configuration. Thoracic Aorta: Atherosclerotic calcification of thoracic aorta. Pulmonary arteries: Dilation of the main pulmonary artery. Heart: Coronary artery atherosclerosis. Lymph Nodes: No enlarged mediastinal lymph nodes identified. Esophagus: No abnormalities of the esophagus identified Other: No additional findings. Lungs: Minimal right atelectasis. Left lower lobe collapse. Pleura: No pleural effusion or pneumothorax. Trachea/Airways: Left lower lobe bronchial filling defects. Abdomen: Liver: The liver has normal size and density. Gallbladder: No calcified gallstones. Spleen, Pancreas, and Adrenal Glands: Calcified splenic granulomas. Kidneys: No hydronephrosis or obstructing ureteral calculus. Vasculature: Aortoiliac atherosclerosis. IVC is unremarkable. Stomach: The stomach and duodenum have normal course. Other: No free intraperitoneal air. No free fluid or lymphadenopathy. Pelvis: Bladder: Urinary bladder is unremarkable. Bowel: No dilated loops of large or small bowel. Moderate amount stool. Appendix: Normal appendix. Pelvis: Prior hysterectomy. Bones: Healed remote fracture of the right pubic rami. Age-indeterminate T4 compression fracture. Mil d to moderate multilevel loss of intervertebral disc height with endplate spondylosis and facet arthr opathy. Osteopenia. Mild levoconvex scoliosis of the thoracolumbar spine. IMPRESSION: 1. No acute intracranial abnormality. 2. No acute fracture or subluxation of the cervical spine. 3. Subacute compression fracture of the T2 vertebral body with approximately 10% loss of anterior v ertebral body height. No retropulsion of fracture fragments. 4. Age-indeterminate T4 compression fracture. If the patient has point tenderness at this location MRI would provide more complete characterization.Left lower lobe collapse with possible mucous pluggi ng. 5. Dilation of the main pulmonary artery. This could be seen with pulmonary arterial hypertension. 6. Coronary artery atherosclerosis. 7. No acute abnormality identified in the abdomen or pelvis. 8. 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 Electronically signed by: Lamonte Castillo 11/30/2022 5:07 AM CDT Due to temporary technical issues with the PACS/Fluency reporting system, reports are being signed by the in house radiologist without review as a courtesy to ensure prompt reporting. The interpreting r adiologist is fully responsible for the content of the report.
--- NOTE | 2022-11-30 13:37 | RAD REPORT ---
EXAM DESCRIPTION: RAD - Chest Single View - 11/30/2022 2:45 am CLINICAL HISTORY: COUGH TECHNIQUE: Frontal view of the chest. COMPARISON: No relevant prior studies available. FINDINGS: Lungs: Coarsened interstitial markings. No focal consolidation. Pleural space: Unremarkable. No pneumothorax. Heart: The cardiac silhouette is enlarged, in part accentuated by portable technique. Mediastinum: Unremarkable. Bones/joints: Multilevel spondylosis. No acute fracture. Vasculature: Thoracic aortic atherosclerosis. IMPRESSION: No acute disease. Electronically signed by: Lian Cassidy MD 11/30/2022 3:02 AM CDT Due to temporary technical issues with the PACS/Fluency reporting system, reports are being signed by the in house radiologist without review as a courtesy to ensure prompt reporting. The interpreting r adiologist is fully responsible for the content of the report.
--- NOTE | 2022-12-02 14:22 | EKG ---
Test Date: 2022-11-30 Test Time: 01:52:52 Change Management: ASHLEY MEASUREMENT RESULTS: Intervals: Rate: 62 IA: QRSD: 152 QT: 464 QTc: 470 [place]: P: IA: QRS: 92 T: -6 INTERPRETIVE STATEMENTS: Sinus rhythm Right bundle branch block Abnormal ECG Compared to ECG 10/25/2022 11:04:26 No significant changes Electronically Signed On 12-02-22 14:18:27 CDT by Matthew Reaves
== END 2022-11-30 07:02 | disposition short-term general hospital (02) ==
LOC: ER 01:39
PROC: 30233N1 Transfusion of Nonautologous Red Blood Cells into Peripheral Vein, Percutaneous Approach (ICD-10-PCS; principal; 2022-11-30)
DX: D64.9 Anemia, unspecified (principal); K92.2 Gastrointestinal hemorrhage, unspecified; R55 Syncope and collapse; I48.91 Unspecified atrial fibrillation; T50.995A Adverse effect of other drugs, medicaments and biological substances, initial encounter; Z86.73 Personal history of transient ischemic attack (TIA), and cerebral infarction without residual deficits; Z79.01 Long term (current) use of anticoagulants; Z79.82 Long term (current) use of aspirin; Z88.8 Allergy status to other drugs, medicaments and biological substances
CPT/HCPCS: 93005; 87040 ×2; 85025; 80048; 36415; 86900; 83735; 86850; 85610; 86901; 80076; 83605; 86920; 84484; 83690; 83880; 70450; 71250; 72125; 71045; 36430 ×2; 99285; J0360; C9113; P9016 ×2; J7050; J0696

== ENCOUNTER 2023-03-06 08:20 | Inpatient (IN) | payer OTHER ==
--- OUTSIDE RECORDS SUMMARY | 2023-03-06 08:24 | XMS REPORT | Continuity of Care Document ---
:1935 Author Organization [facility] t Address [address] [place] [id number] Care Team Providers Name Role Phone No, Pcp [facility] Primary Care Physician Unavailable Asa Lee Attending Clinician Unavailable LENORE MENDEZ Attending Clinician Unavailable MARKEL MCPHERSON Attending Clinician Unavailable Markel Mcpherson MD Attending Clinician Lenore Mendez MD Attending Clinician SHIN PATINO Attending Clinician Unavailable LENORE MENDEZ Admitting Clinician Unavailable Payers Payer Name Policy Type Policy Number Effective Date Expiration Date Angy REINA MEDICARE HMO [id number] 2022 POS PPO 00:00:00 Problems Condition Condition Condition Status Onset Resolution Last Treating Co mments Source Name Details Category Date Date Treatment Clinician Date Anemia Anemia [facility] Allergies, Adverse Reactions, Alerts Allergy Allergy Status Severity Reaction(s) Onset Inactive Treating Comm ents Source Name Type Date Date Clinician AMIODARO Allergy Active [facility] LOSARTAN Allergy Active [facility] LISINOPR Allergy Active [facility] METOPROL Allergy Active [facility] TARTRATE 00:00: Medical (BULK) 00 Center Amiodaro Propensi Active [facility] adverse 00:00: Medical reaction 00 Center s Losartan Propensi Active [facility] adverse 00:00: Medical reaction 00 Center s Lisinopr Propensi Active [facility] adverse 00:00: Medical reaction 00 Center s Metoprol Propensi Active [facility] Tartrate adverse 00:00: Medical (Bulk) reaction 00 Center s Social History Social Habit Start Date Stop Date Quantity Comments Source History [facility] Non-Med Medical [facility] Alcohol intake 2022-12-01 2022-12-[address] [facility] 00:[facility]00 00:00:00 non-drinker Medical Cente r (finding) Tobacco use and 2022-12-01 2022-12-[address] [facility] exposure 00:00[facility]00 00:00:00 non-user Medical Center History [facility] 2022-11-30 2022-11-[address] [facility] Transport Med 00:00:00 00:00:[address] History [facility] 2022-11-30 2022-11-[address] [facility] Housing Unable to 00:00:00 00:00:00 Medical Center Pay History [facility] 2022-11-30 2022-11-[address] [facility] Housing Places 00:00:00 00:00:00 Medical Ce nter Lived History [facility] 2022-11-30 2022-11-[address] [facility] Housing Homeless 00:00:00 00:00:00 Medical Center Last Year Sex Assigned At [address] [facility] 00:00:00 00:00:00 Medical Center Smoking Status Start Date Stop Date Source Never smoked tobacco [facility] Medications Ordered Filled Start Stop Current Ordering Indication Dosage Frequency Signature Comments Components Source Medication Medication Date Date Medication? Clinician (SIG) Name Name warfarin Yes 2mg QD Take [address] [facility] [address] (COUMADIN, 6-04 tablet (2 Luke s JANTOVEN) 2 12:33: mg total) M edical MG tablet 01 by mouth Center every evening. amLODIPine 2023-0 Yes hypertensio 5mg QD Take [address] [facility] [address] (NORVASC) 5 6-04 n tablet (5 Devin es MG tablet 12:33: mg total) Med ical 01 by mouth Center in the morning. hydroCHLORO 2023-0 Yes 12.5mg QD Take [address] thiazide 6-04 capsule [facility] (MICROZIDE) 12:33: (12.5 mg Me dical 12.5 mg 01 total) by Center capsule mouth in the morning. aspirin 81 2023-0 Yes 81mg QD Take 1 [facility] MG chewable 6-04 tablet (81 Kristin kes tablet 12:33: mg total) Medica l 01 by mouth Center in the morning. omega-3 2023-0 Yes 1g QD Take [address] acid ethyl 6-04 capsule (1 Devin es esters 12:33: g total) Medical (LOVAZA) 1 01 by mouth Cente r gram in the capsule morning. lovastatin 2023-0 Yes 20mg QD Take 1 [facility] (MEVACOR) 6-04 tablet (20 Luke s 20 MG 12:33: mg total) Medical tablet 01 by mouth Center nightly. psyllium 2023-0 Yes 1{packe Q.[id number] Take [address] (METAMUCIL) 6-04 t} [id number] packet by [facility] powder 12:33: 3D mouth in Medical 01 the Center morning and 1 packet at noon and 1 packet in the evening. propafenone 2023-0 Yes 225mg Q.[id number] Take [address] (RYTHMOL 6-04 [id number] capsule Kristin kes SR) 225 MG 12:33: 3D (225 mg Medi kaiden 12 hr 01 total) by Center capsule mouth in the morning and 1 capsule (225 mg total) at noon and 1 capsule (225 mg total) in the evening. aliskiren 2023-0 Yes 150mg QD Take 1 [facility] (TEKTURNA) 6-04 tablet [facility] 150 MG 12:33: (150 mg Medical tablet 01 total) by Center mouth in the morning. cycloSPORIN 2023-0 Yes 1[drp] [address] [facility] 6-04 every 12 [facility] (RESTASIS) 12:33: (twelve) Med ical 0.05 % 01 hours. Center ophthalmic emulsion Vital Signs Vital Name Observation Time Observation Value Comments Source HEIGHT 2022-11-30 08:36:00 157.5 cm WEIGHT 2022-11-30 08:36:00 54.069 kg HEIGHT 2022-11-30 08:36:00 157.5 cm WEIGHT 2022-11-30 08:36:00 54.069 kg HEIGHT 2022-11-30 08:36:00 157.5 cm WEIGHT 2022-11-30 08:36:00 54.069 kg Systolic blood 2022-12-01 07:30:00 144 mm[Hg] [facility] Diastolic blood 2022-12-01 07:30:00 63 mm[Hg] [facility] Heart rate 2022-12-01 07:30:00 81 /min [facility] Body temperature 2022-12-01 07:30:00 35.89 Khadra [facility] Respiratory rate 2022-12-01 07:30:00 18 /min [facility] Oxygen saturation in 2022-12-01 07:30:00 95 /min [facility] Arterial blood by Medical Ce nter Pulse oximetry Body weight 2022-11-30 08:36:00 54.069 kg [facility] BMI 2022-11-30 08:36:00 21.80 kg/m2 [facility] Body height 2022-11-30 08:36:00 157.5 cm [facility] Procedures Procedure Date / Time Performed Performing Clinician Tamiko viktoriya CBC W/PLT COUNT & AUTO 2022-12-01 03:47:00 [facility] BASIC METABOLIC PANEL 2022-12-01 03:47:00 [facility] MAGNESIUM 2022-12-01 03:47:00 [facility] PHOSPHORUS 2022-12-01 03:47:00 [facility] CBC W/PLT COUNT & AUTO 2022-12-01 03:47:00 [facility] LACTATE DEHYDROGENASE 2022-11-30 19:56:00 Lenore Mendez [facility] (LDH) [facility] HAPTOGLOBIN 2022-11-30 19:56:00 Lenore Mendez [facility] HEMOGLOBIN AND HEMATOCRIT 2022-11-30 19:56:00 Lenore Mendez [facility] ANTI-NUCLEAR ANTIBODY 2022-11-30 19:56:00 Lenore Mendez [facility] (GEREMIAS) [facility] GEREMIAS TITER AND PATTERN 2022-11-30 19:56:00 Lenore Mendez [facility] ABORH, MANUAL 2022-11-30 17:15:00 Neida Emanuel [facility] US RENAL COMPLETE 2022-11-30 15:34:00 Lenore Mendez [facility] URINE CULTURE 2022-11-30 11:58:00 [facility] CBC W/PLT COUNT & AUTO 2022-11-30 11:58:[address] [facility] B-TYPE NATRIURETIC FACTOR 2022-11-30 11:58:00 [facility] (BNP) Medical [place] PT/APTT 2022-11-30 11:58:00 [facility] URINALYSIS W/ REFLEX 2022-11-30 11:58:00 [facility] URINE CULTURE [facility] IRON, TIBC, % SAT. 2022-11-30 11:58:00 [facility] (WITHOUT FERRITIN) [facility] - 2022-11-30 11:58:00 Lenore Mendez [facility] PATHOLOGIST REVIEW [facility]EN, 2022-11-30 11:58:00 [facility] AUTOMATED [facility] CBC W/PLT COUNT & AUTO 2022-11-30 11:58:00 [facility] DIFFERENTIAL [facility] XR CHEST 1 VIEW PORTABLE 2022-11-30 09:58:00 [facility] / BEDSIDE Medical Center Plan of Care Planned Activity Planned Date Details Comments Source Future Scheduled 2023-12-[address] [facility] 00:[facility] Cent[facility] r Screening (12+) [code = Tobacco Cessation Counseling and Screening (12+)] Future Scheduled 2023-03-01 Influenza Vaccine (#1) [facility] 00:00[facility]00 [code = Influenza Medical Ce nter Vaccine (#1)] Future Scheduled 2022-07-01 Medicare IPPE (WELCOME [facility] 00:00:00 TO MEDICARE) [code = Medical Center Medicare IPPE (WELCOME TO MEDICARE)] Future Scheduled 1952 DTAP/TDAP/TD VACCINES [facility] Test 00:00:00 (1 - Tdap) [code = Medical C enter DTAP/TDAP/TD VACCINES (1 - Tdap)] Future Scheduled 1954 SHINGLES VACCINES ([address] [facility] Test 00:00:00 of 2) [code = SHINGLES Medic al Center VACCINES (1 of 2)] Future Scheduled 1939-11-02 PNEUMOCOCCAL 65+ YRS [facility] Test 00:00:00 (1 - PCV) [code = Medical Ce nter PNEUMOCOCCAL 65+ YRS (1 - PCV)] Future Scheduled 1934-05-04 COVID-19 VACCINE (#1) [facility] 00:00:00 [code = COVID-[address] VACCINE (#1)] Encounters Start End Encounter Admission Attending Care Care Encounter Source Date/Time Date/Time Type Type Clinicians Facility Department ID 2023-03-20 Inpatient IVA LeeWU [facility] [id number] [facility] 08:00:[address] [facility] 2022-11-30 2022-12-01 Inpatient ER ANAYA MENDEZ General Med [id number] ANAYA 08:16:00 12:33:00 LENORE 2022-11-30 2022-12-01 [facility] Markel Mcpherson [facility] [id number] [facility] 08:16:00 12:33:00 Encounter Lenore Mendez [facility] 2022-11-30 2022-11-30 Travel [facility] [id number] [facility] 00:[facility]00 [facility] 2021-01-03 2021-01-03 Outpatient VICKY PATINO MED 750 1 KELVIN 08:18:00 23:59:00 SHIN Results Test Description Test Time Test Comments Results Result Comments Source GEREMIAS TITER AND PATTERN 2022-12-04 12:48:39 Test Item Value Reference Range Interpretation Comme nts GEREMIAS TITER (BEAKER) (test code = 1541) :640 GEREMIAS PATTERN (BEAKER) (test code = 1781) Homogeneous ANTI-NUCLEAR ANTIBODY (GEREMIAS)2022-12-04 12:48:21 Test Item Value Reference Range Interpretation Comments ANTI-NUCLEAR ANTIBODY (GEREMIAS) (BEAKER) Positive Negative A (test code = 418) Test performed by IFA method.[id number] 12:27:35 Test Item Value Reference Range Interpretation Comments HAPTOGLOBIN (BEAKER) (test code = 162 mg/dL 14-258 366) Rifle Case Repairer ID - MMUrine [id number] 08:58:24 Test Item Value Reference Range Interpretation Comments Result (test code = No growth 6463-4) GENESIS (test code = If your patient does not GENESIS) have signs or symptoms of UTI, it is recommended NOT to treat, with the exception of and prior to urologic procedures. [facility] [id number] 08:58:24 Test Item Value Reference Range Interpretation Comments CULTURE (BEAKER) (test code = 1095) No growth If your patient does not have signs or symptoms of UTI, it is recommended NOT to treat, with the exception of and prior to urologic procedures. [id number] 05:00:11 Test Item Value Reference Range Interpretation Comments MAGNESIUM (BEAKER) (test code = 2.4 mg/dL 1.5-3.0 627) Rifle Case Repairer ID - [id number] ID - [id number] ID - [id number] ID - [id number] METABOLIC [id number] 04:58:48 Test Item Value Reference Range Interpretation Comments SODIUM (BEAKER) 140 meq/L 135-148 (test code = 381) POTASSIUM 4.0 meq/L 3.6-5.5 (BEAKER) (test code = 379) CHLORIDE (BEAKER) 107 meq/L 98-106 H (test code = 382) CO2 (BEAKER) 22 meq/L 20-29 (test code = 355) BLOOD UREA 17 mg/dL 10-26 NITROGEN (BEAKER) (test code = 354) CREATININE 1.04 mg/dL 0.50-1.20 (BEAKER) (test code = 358) GLUCOSE RANDOM 94 mg/dL 70-110 (BEAKER) (test code = 652) CALCIUM (BEAKER) 8.5 mg/dL 8.5-10.5 (test code = 697) EGFR (BEAKER) 51 Interpretatio n of eGFR (test code = mL/min/1.73 values Stage De scription 1092) sq m Result G1 Florecita l or high >=90 G2 Mildly decreased 60-89 G3a Mildl y to moderately 45-5 9 G3b Moderately to s everely 30-44 G4 Severl y decreased 15-29 G5 Kidney failure <15Reported eGF R is based on the CKD-EPI 2020 equation that d oes not use a race coefficientEsti mated GFR is not as accur ate as Creatinine Roz yudy in predicting glom erular filtration rate . Estimated GFR is not appl icable for dialysis patien ts Rifle Case Repairer ID - [id number] ID - [id number] ID - [id number] ID - [id number] ID - [id number] ID - [id number] ID - [id number] ID - [id number] ID - [id number] 04:57:25 Test Item Value Reference Range Interpretation Comments PHOSPHORUS (BEAKER) (test code = 3.0 mg/dL 2.5-4.5 604) Rifle Case Repairer ID - [id number] W/PLT COUNT & AUTO [id number] 04:43:48 Test Item Value Reference Range Interpretation Comments WHITE BLOOD CELL COUNT (BEAKER) 7.7 K/ L 4.0-10.0 (test code = 775) RED BLOOD CELL COUNT (BEAKER) 3.26 M/ L 4.00-5.00 L (test code = 761) HEMOGLOBIN (BEAKER) (test code = 9.9 GM/DL 12.0-15.5 L 410) HEMATOCRIT (BEAKER) (test code = 30.4 % 36.0-46.0 L 411) MEAN CORPUSCULAR VOLUME (BEAKER) 93 fL 82-99 (test code = 753) MEAN CORPUSCULAR HEMOGLOBIN 30.4 pg 27.0-33.0 (BEAKER) (test code = 751) MEAN CORPUSCULAR HEMOGLOBIN CONC 32.6 GM/DL 32.0-36.0 (BEAKER) (test code = 752) RED CELL DISTRIBUTION WIDTH 22.2 % 12.0-15.0 H (BEAKER) (test code = 412) PLATELET COUNT (BEAKER) (test 179 K/CU MM 150-430 code = 756) MEAN PLATELET VOLUME (BEAKER) 12.0 fL 6.0-11.5 H (test code = 754) NUCLEATED RED BLOOD CELLS 0 /100 WBC 0-0 (BEAKER) (test code = 413) NEUTROPHILS RELATIVE PERCENT 69 % (BEAKER) (test code = 429) LYMPHOCYTES RELATIVE PERCENT 17 % (BEAKER) (test code = 430) MONOCYTES RELATIVE PERCENT 9 % (BEAKER) (test code = 431) EOSINOPHILS RELATIVE PERCENT 3 % (BEAKER) (test code = 432) BASOPHILS RELATIVE PERCENT 1 % (BEAKER) (test code = 437) NEUTROPHILS ABSOLUTE COUNT 5.32 K/ L 1.80-8.00 (BEAKER) (test code = 670) LYMPHOCYTES ABSOLUTE COUNT 1.34 K/ L 1.48-4.50 L (BEAKER) (test code = 414) MONOCYTES ABSOLUTE COUNT (BEAKER) 0.66 K/ L 0.00-1.30 (test code = 415) EOSINOPHILS ABSOLUTE COUNT 0.26 K/ L 0.00-0.50 (BEAKER) (test code = 416) BASOPHILS ABSOLUTE COUNT (BEAKER) 0.07 K/ L 0.00-0.20 (test code = 417) IMMATURE GRANULOCYTES-RELATIVE 0.40 % 0.00-0.00 H PERCENT (BEAKER) (test code = 2801) U/S, RENAL, [id number] 20:52:00Reason for exam:->STAN vs CKD [facility] CENTERName: BRITNEY ALEJANDRE : 1935 Sex: FFINAL REPORT TECHNIQUE: Grayscale ultrasound of the kidneys and bladder. INDICATION: STAN vs CKD. COMPARISON: None. FINDINGS: RIGHT KIDNEY: The right kidney measures 8.7 x 3.5 x 4.9 cm (78 mL)with a cortical thickness of 0.9 cm. No solid mass lesions. No hydronephrosis. Renal artery and veinare patent. LEFT KIDNEY: The left kidney measures 9.9 x 4 x 3.8 cm (78 mL) with a cortical thicknessof 0.9 cm. No solid mass lesions. No hydronephrosis. Renal artery and vein are patent. BLADDER: The urinary bladder volume is 214 mL. Small left pleural effusion IMPRESSION: 1.The kidneys are small which can be seen with medical renal disease. No hydronephrosis 2.Small left pleural effusion Signed: Richard [facility] Verified Date/Time: 11/30/2022 20:52:11 LACTATE DEHYDROGENASE (LDH) 2022-11-30 20:22:52 Test Item Value Reference Range Interpretation Comments LACTATE DEHYDROGENASE (BEAKER) (test 314 U/L 107-206 H code = 635) Rifle Case Repairer ID - TCAMACHOOperator ID - TCAMACHOOperator ID - TCAMACHOOperator ID - TCAMACHOHEMOGLOBIN AND [id number] 20:02:51 Test Item Value Reference Range Interpretation Comments HEMOGLOBIN (BEAKER) (test code = 10.2 GM/DL 12.0-15.5 L 410) HEMATOCRIT (BEAKER) (test code = 30.1 % 36.0-46.0 L 411) PERIPHERAL BLOOD SMEAR - PATHOLOGIST [id number] 15:30:52 Test Item Value Reference Range Interpretation Comments PERIPHERAL SMR REVIEW Normochromic, (BEAKER) (test code = normocytic anemia, no 2640) schistocytes. Mature leukocytes, no circulating blasts. Unremarkable platelet morphology. [id number] Hector Ordaz M.D. (BEAKER) (test code = (electronic signiture) 7739) Urinalysis w/Microscopic + Reflex to [id number] 12:43:33 Test Item Value Reference Range Interpretation Comments Color, UA (test code Yellow = 5778-6) Clarity, UA (test Slightly Cloudy code = 5767-9) Specific Parrish, UA 1.010 1.001-1.035 (test code = 5811-5) pH, UA (test code = 5.0-8.0 H 5803-2) Protein, UA (test 30 mg/dL Negative A code = 87084-9) Glucose, UA (test Negative Negative code = 365) Ketones, UA (test Trace Negative A code = 2514-8) Bilirubin, UA (test Negative Negative code = 81802-6) Blood, UA (test code Negative Negative = 56098-9) Nitrite, UA (test Positive Negative A code = 5802-4) Leukocytes, UA (test Moderate Negative A code = 5799-2) Urobilinogen, UA 0.2 (test code = 28808-9) Bacteria, UA (test Moderate code = 20870-6) RBC, UA (test code = 5-10 See_Comment [Autom ated 799-7) message] The system which generated this result transmit lurdes reference range : /HPF. The reference range was not used to interpret this result as normal/abnormal . WBC, UA (test code = 5-10 See_Comment [Autom ated 17208-2) message] The system which generated this result transmit lurdes reference range : /HPF. The reference range was not used to interpret this result as normal/abnormal . SQUAMOUS EPITHELIAL <5 See_Comment [Automa lurdes (test code = 85003-9) messag e] The system which generated this result transmit lurdes reference range : /HPF. The reference range was not used to interpret this result as normal/abnormal . Specimen Source (test code = 2795) Lab Interpretation Abnormal (test code = 16641-0) [facility] URINE [id number] 12:43:33 Test Item Value Reference Range Interpretation Comments COLOR (BEAKER) (test code = Yellow 470) CLARITY (BEAKER) (test code = Slightly Cloudy 469) SPECIFIC GRAVITY UA (BEAKER) 1.010 1.001-1.035 (test code = 468) PH UA (BEAKER) (test code = >= 5.0-8.0 H 467) PROTEIN UA (BEAKER) (test 30 mg/dL Negative A code = 464) GLUCOSE UA (BEAKER) (test Negative Negative code = 365) KETONES UA (BEAKER) (test Trace Negative A code = 371) BILIRUBIN UA (BEAKER) (test Negative Negative code = 462) BLOOD UA (BEAKER) (test code Negative Negative = 461) NITRITE UA (BEAKER) (test Positive Negative A code = 465) LEUKOCYTE ESTERASE UA Moderate Negative A (BEAKER) (test code = 466) UROBILINOGEN UA (BEAKER) 0.2 (test code = 463) BACTERIA (BEAKER) (test code Moderate = 517) RBC UA-MANUAL (BEAKER) (test 5-10 /HPF code = 1659) WBC UA-MANUAL (BEAKER) (test 5-10 /HPF code = 1661) SQUAMOUS EPITHELIAL MANUAL <5 /HPF (BEAKER) (test code = 1663) SOURCE(BEAKER) (test code = 2795) B-TYPE NATRIURETIC FACTOR (BNP)2022-11-30 12:42:10 Test Item Value Reference Range Interpretation Comments B-TYPE NATRIURETIC PEPTIDE (BEAKER) 751 pg/mL 0-100 H (test code = 700) Rifle Case Repairer ID - [id number], TIBC, % SAT. (WITHOUT FERRITIN)2022-11-30 12:33:25 Test Item Value Reference Range Interpretation Comments IRON (BEAKER) (test code = 547) 228.0 ug/dL 45.0-170.0 H TOTAL IRON BINDING CAPACITY 210 ug/dL 250-550 L (BEAKER) (test code = 769) IRON % SATURATION (2) (BEAKER) 109 % 20-55 H (test code = 2590) Rifle Case Repairer ID - [id number] ID - [id number] 12:30:17 Test Item Value Reference Range Interpretation Comments PROTIME (BEAKER) (test 28.0 seconds 9.3-12.0 H Final Information code = 759) (Auto Output) INR (BEAKER) (test 2.75 <=5.90 Final Inf ormation code = 370) (Auto Output) PARTIAL THROMBOPLASTIN 33.9 seconds 23.0-35.0 Final Information TIME (BEAKER) (test (Auto Ou tput) code = 760) RECOMMENDED COUMADIN/WARFARIN INR THERAPY RANGESSTANDARD DOSE: 2.0 - 3.0 Includes: PROPHYLAXIS for venous thrombosis, systemic embolization; TREATMENT for venous thrombosis and/or pulmonary embolus.HIGH RISK: Target INR is 2.5-3.5 for patients with mechanical heart valves.CBC W/PLT COUNT & AUTO [id number] 12:11:23 Test Item Value Reference Range Interpretation Comments WHITE BLOOD CELL COUNT (BEAKER) 7.8 K/ L 4.0-10.0 (test code = 775) RED BLOOD CELL COUNT (BEAKER) 3.16 M/ L 4.00-5.00 L (test code = 761) HEMOGLOBIN (BEAKER) (test code = 9.8 GM/DL 12.0-15.5 L 410) HEMATOCRIT (BEAKER) (test code = 29.6 % 36.0-46.0 L 411) MEAN CORPUSCULAR VOLUME (BEAKER) 94 fL 82-99 (test code = 753) MEAN CORPUSCULAR HEMOGLOBIN 31.0 pg 27.0-33.0 (BEAKER) (test code = 751) MEAN CORPUSCULAR HEMOGLOBIN CONC 33.1 GM/DL 32.0-36.0 (BEAKER) (test code = 752) RED CELL DISTRIBUTION WIDTH 21.2 % 12.0-15.0 H (BEAKER) (test code = 412) PLATELET COUNT (BEAKER) (test 243 K/CU MM 150-430 code = 756) MEAN PLATELET VOLUME (BEAKER) 9.8 fL 6.0-11.5 (test code = 754) NUCLEATED RED BLOOD CELLS 0 /100 WBC 0-0 (BEAKER) (test code = 413) NEUTROPHILS RELATIVE PERCENT 72 % (BEAKER) (test code = 429) LYMPHOCYTES RELATIVE PERCENT 18 % (BEAKER) (test code = 430) MONOCYTES RELATIVE PERCENT 8 % (BEAKER) (test code = 431) EOSINOPHILS RELATIVE PERCENT 1 % (BEAKER) (test code = 432) BASOPHILS RELATIVE PERCENT 1 % (BEAKER) (test code = 437) NEUTROPHILS ABSOLUTE COUNT 5.58 K/ L 1.80-8.00 (BEAKER) (test code = 670) LYMPHOCYTES ABSOLUTE COUNT 1.42 K/ L 1.48-4.50 L (BEAKER) (test code = 414) MONOCYTES ABSOLUTE COUNT (BEAKER) 0.61 K/ L 0.00-1.30 (test code = 415) EOSINOPHILS ABSOLUTE COUNT 0.11 K/ L 0.00-0.50 (BEAKER) (test code = 416) BASOPHILS ABSOLUTE COUNT (BEAKER) 0.04 K/ L 0.00-0.20 (test code = 417) IMMATURE GRANULOCYTES-RELATIVE 0.50 % 0.00-0.00 H PERCENT (BEAKER) (test code = 2801) RAD, CHEST, 1 VIEW, NON [id number] 10:19:00Reason for exam:->shortness of breathShould this be performed at the bedside?->Yes [facility] : 1935 Sex: FFINAL REPORT CLINICAL HISTORY: shortness of breath TECHNIQUE: 1 view of the chest. COMPARISON: None IMPRESSION: There is left lower lobe consolidation with a small left pleural effusion. There are patchy airspace opacities elsewhere bilaterally. The cardiomediastinal silhouette is magnifiedby technique. Signed: Madhuri Thompson MDReport Verified Date/Time: 11/30/2022 10:19:27 Notes Date/Time Note Provider Source 2022-12-01 07:57:40-00:[address] [facility] PROGRESS NOTE BRITNEY ALEJANDRE FACILITY: [facility] Billing #: [id number] Room: [address] [place] [address] MR #: [id number] : 1935 PHYSICIAN: Ankit Khan MD ADMISSION DATE: 11/30/2022 DATE: 12/01/2022 SUBJECTIVE: No significant overnight events. The patient has not had a bowel movement and therefore no overt evidence of bleeding. She feels much better after blood lopez sfusion. She denies any abdominal pain or nausea/vomiting. OBJECTIVE: VITAL SIGNS: Temperature 98 degrees, pulse 69, respiratory rate 18, blood pressure 169/72. GENERAL: The patient is awake, alert, very pleas ant, in no acute distress. HEENT: Sclerae anicteric, conjunctivae pale, abisai pharynx clear. CARDIOVASCULAR: Irregularly irregular without mu rmurs, gallops, or rubs. LUNGS: Clear to auscultation bilaterally. ABDOMEN: Soft, nontender, nondistended. Bowel so unds are normal. EXTREMITIES: No cyanosis, clubbing, or edema. LABORATORY DATA: Hemoglobin 9.9, MCV 93. IMPRESSION: 1. Normocytic anemia. 2. Syncope. 3. Atrial fibrillation, previously on anticoagul ation. RECOMMENDATION: No overt or occult evidence of G I bleeding. Hemoglobin is stable after blood transfusion. Gi lisa patient's age and her wishes, no plans to do colonoscopy. Consider outpatient hematologic evaluation. She can be di scharged from GI standpoint. NBV/MODL /[id number] Electronically signed by: ANKIT KHAN at 20 21-12-02 07:28:08.000 2022-11-30 13:51:38-00:[address] [facility] BRITNEY ALEJANDRE FACILITY: [facility] Billing #: [id number] Room: [address] [place] [address] MR #: [id number] : 1935 DATE OF ADMISSION: 11/30/2022 DATE OF CONSULTATION: REQUESTING PHYSICIAN: Lenore Mendez MD STRATEGIC MANAGER: Ankit Khan MD Gastroenterology Consultation REASON FOR CONSULTATION: Anemia. HISTORY OF PRESENT ILLNESS: This is an 87-year-o ld female with chronic anemia and on Coumadin for atrial fibril lation, who is transferred from [facility] to [facility] after she was found to have anemia. It is unsure why transfer happened as the patient is not having any overt bleeding and responded well to blood transfusion. Her INR is pretty therapeutic. The patient's last EGD and colonosc opy were about six years ago. She states that she is followed b y [facility] for chronic anemia, although she has never requi red a blood transfusion. Other than Coumadin, she is not on any NSAIDs. She feels well and is completely asymptomatic wh en I saw her. PAST MEDICAL HISTORY: 1. Chronic anemia. 2. Hypertension. 3. Chronic atrial fibrillation. PAST SURGICAL HISTORY: None. ALLERGIES: 1. AMIODARONE. 2. COZAAR. 3. LISINOPRIL. 4. METOPROLOL. SOCIAL HISTORY: The patient does not smoke, drin k, or do drugs. FAMILY HISTORY: Negative for colon cancer, liver disease, or inflammatory bowel disease. MEDICATIONS: See MAR. REVIEW OF SYSTEMS: CARDIOVASCULAR: Positive shortness of breath. Mi nimal exertion. PULMONARY: No cough, hemoptysis or wheezing. GENITOURINARY: No hematuria, dysuria, increased frequency. NEUROLOGIC: Positive for syncope. Rest of 10-point review of systems noncontributo ry. PHYSICAL EXAMINATION: VITAL SIGNS: Temperature 98 degrees, pulse 70, r espiratory rate 17, blood pressure 191/74, O2 saturation 96 %. GENERAL: The patient is awake, alert, very pleas ant, appears younger than stated age. HEENT: Sclerae anicteric, conjunctivae pale, abisai pharynx clear. CARDIOVASCULAR: Regular rate and rhythm without murmurs, gallops, or rubs. LUNGS: Clear to auscultation bilaterally. ABDOMEN: Soft, nontender, nondistended. Bowel so unds are normal. EXTREMITIES: No cyanosis, clubbing, or edema. NECK: No thyromegaly, lymphadenopathy, or jugula r venous distention. LABORATORY DATA: White count 7.8, hemoglobin 9.8 , platelets 243. INR 2.75. BNP 751. IMPRESSION: 1. Normocytic anemia. 2. Chronic atrial fibrillation, anticoagulation. 3. Syncope. RECOMMENDATIONS: There is no overt or occult austyn dence of GI bleeding at this time. The patient does not want to proceed with colonoscopy and I do not think it is even i ndicated given her age and comorbidities. From a GI standpoint she is stable for discharge and follow up with her hematologis t. If condition changes we are happy to proceed in a m ore urgent manner, but at this time she seems stable. CATHIE/TAHIR /[id number] .000
[2023-03-06 09:35] LABS: Absolute Lymphocytes (CBC) 1.3 K/uL (0.7-4.9); Hematocrit 16.1 % (36.0-45.0); Lymphocytes % 18.8 % (15.3-44.8); MCV 98.2 fL (80-100); MPV 8.3 fL (7.6-11.3); Platelets 179 thou/uL (152-406); RBC Red Blood Cell Count 1.64 M/uL (3.86-4.86)
[2023-03-06 09:38] LABS: Protime INR 2.39
--- NOTE | 2023-03-06 09:49 | RAD REPORT ---
EXAM DESCRIPTION: Emily Single View03/06/2023 9:41 am CLINICAL HISTORY: Shortness of breath COMPARISON: November 2022 FINDINGS: Blunting of the left lateral costophrenic sulcus could represent a small pleural effusion or pleural thickening. Mild bilateral pulmonary opacities probably chronic. Lungs appear clear of acute infiltrate. Heart is mildly to moderately enlarged
[2023-03-06 10:04] LABS: ALT/SGPT 27 U/L (13-56); AST/SGOT 43 U/L (15-37); Albumin 3.1 g/dL (3.4-5.0); Alkaline Phosphatase 59 U/L (45-117); BUN Blood Urea Nitrogen 53 mg/dL (7-18); Bicarbonate 25 mEq/L (21-32); Bilirubin Total 0.2 mg/dL (0.2-1.0); Glomerular Filtration Rate 43 ml/min (=/>90); Glucose Level 124 mg/dL (74-106); Magnesium 2.6 mg/dL (1.6-2.4); NT PRO-BNP 10430 pg/mL (<450); Potassium 4.1 mEq/L (3.5-5.1); Protein, Total 6.8 g/dL (6.4-8.2); Sodium Level 144 mEq/L (136-145)
[2023-03-06 10:05] LABS: Bilirubin Direct < 0.1 mg/dL (0-0.2); Bilirubin Indirect, Calculated ND mg/dL (0.2-0.8)
[2023-03-06 10:07] LABS: Troponin High Sensitivity 4159.6 pg/mL (<58.9)
--- NOTE | 2023-03-06 11:02 | EDPHYS ---
Physician Documentation [facility] Name: Mima Dougherty Age: 87 yrs Sex: Female : 1935 Arrival Date: 03/06/2023 Time: 08:20 Bed 17 Private MD: ED Physician Shaquille Brothers HPI: 03/06 09:20 This 87 yrs old Female presents to ER via Ambulatory with complaints of General snw Weakness, Blood Pressure Problem - Low. 09:20 Pt has been going to the Cancer center for blood pressure checks weekly. She sees Dr. ale Hunter for anemia. Pt rec'd last blood transfusion 2 months ago. Pt states she has been having really low pressures for two days and feels weak, tired, and a little dizzy. 18:32 Onset: The symptoms/episode began/occurred acutely. Severity of symptoms: At their snw worst the symptoms were moderate. The patient has been recently seen by a physician: Dr. Pulido. 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 - Social history:: Smoking status: unknown. ROS: 09:22 Eyes: Negative for injury, pain, redness, and discharge, ENT: Negative for injury, snw pain, and discharge, Neck: Negative for injury, pain, and swelling, Cardiovascular: Negative for chest pain, palpitations, and edema, Respiratory: Negative for shortness of breath, cough, wheezing, and pleuritic chest pain, Abdomen/GI: Negative for abdominal pain, nausea, vomiting, diarrhea, and constipation, Back: Negative for injury and pain, : Negative for injury, bleeding, discharge, and swelling, MS/Extremity: Negative for injury and deformity, Skin: Negative for injury, rash, and discoloration, Psych: Negative for depression, anxiety, suicide ideation, homicidal ideation, and hallucinations. 09:22 Constitutional: Positive for body aches, fatigue, malaise. 09:22 Neuro: Positive for dizziness, weakness. Exam: 09: Head/Face: Normocephalic, atraumatic. snw 09:22 ENT: Nares patent. No nasal discharge, no septal abnormalities noted. Tympanic membranes are normal and external auditory canals are clear. Oropharynx with no redness, swelling, or masses, exudates, or evidence of obstruction, uvula midline. Mucous membranes moist. Neck: Trachea midline, no thyromegaly or masses palpated, and no cervical lymphadenopathy. Supple, full range of motion without nuchal rigidity, or vertebral point tenderness. No Meningismus. Chest/axilla: Normal chest wall appearance and motion. Nontender with no deformity. No lesions are appreciated. 09:22 Respiratory: Lungs have equal breath sounds bilaterally, clear to auscultation and percussion. No rales, rhonchi or wheezes noted. No increased work of breathing, no retractions or nasal flaring. Abdomen/GI: Soft, non-tender, with normal bowel sounds. No distension or tympany. No guarding or rebound. No evidence of tenderness throughout. Back: No spinal tenderness. No costovertebral tenderness. Full range of motion. MS/ Extremity: Pulses equal, no cyanosis. Neurovascular intact. Full, normal range of motion. 09:22 Neuro: Awake and alert, GCS 15, oriented to person, place, time, and situation. Cranial nerves II-XII grossly intact. Motor strength 5/5 in all extremities. Sensory grossly intact. Cerebellar exam normal. Normal gait with a walker Psych: Awake, alert, with orientation to person, place and time. Behavior, mood, and affect are within normal limits. 09:22 Constitutional: The patient appears alert, awake, frail, pale. 09:22 Eyes: Conjunctiva: pale, bilaterally. 09:22 Cardiovascular: Rate: tachycardic, Rhythm: regular, Heart sounds: murmur. 09:22 Skin: Appearance: Color: pale. Vital Signs: 08:44 BP 115 / 57; Pulse 101; Resp 20; Temp 97.7(TE); Pulse Ox 97% on R/A; iw 09:30 BP 117 / 55; Pulse 93; Resp 20; Pulse Ox 93% on R/A; nj1 10:18 BP 107 / 54; Pulse 92; Resp 18; Pulse Ox 100% on R/A; nj1 11:30 BP 104 / 55; Pulse 95; Resp 20; Pulse Ox 96% on R/A; nj1 12:48 BP 110 / 59; Pulse 92; Resp 17; Pulse Ox 97% ; nj1 14:05 BP 122 / 60; Pulse 90; Resp 20; Temp 97.8(O); Pulse Ox 97% on R/A; nj1 15:00 BP 122 / 66; Pulse 89; Resp 24; Pulse Ox 96% on R/A; nj1 16:18 BP 132 / 65; Pulse 96; Resp 20; Temp 97.9; Pulse Ox 98% on R/A; Pain 2/10; nj1 18:10 BP 133 / 75; Pulse 88; Resp 24; Temp 98.1(O); Pulse Ox 93% on R/A; Pain 2/10; nj1 21:01 BP 137 / 90; Pulse 89; Resp 20; Pulse Ox 96% on R/A; nj1 16:18 Pain Scale: Adult nj1 18:10 Pain Scale: Adult nj MDM: 08:53 Patient medically screened. rt 11:01 Differential Diagnosis anemia, mi. Data reviewed: vital signs, nurses notes, lab test snw result(s), EKG, radiologic studies. Management of patient was discussed with the following: Primary Care Provider: Dr. Bella. Counseling: I had a detailed discussion with the patient and/or guardian regarding the historical points, exam findings, and any diagnostic results supporting the discharge/admit diagnosis, lab results, radiology results, the need for further work-up and treatment in the hospital. 19:18 ED course: Dr. Bella in to see patient. snw 19:18 ED course: Dr. Reaves in to see patient.. snw 03/06 09:02 Order name: Basic Metabolic Panel; Complete Time: 10:10 rt 03/06 09:02 Order name: CBC with Diff; Complete Time: 09:51 rt 03/06 09:02 Order name: LFT's; Complete Time: 10:10 rt 03/06 09:02 Order name: Magnesium; Complete Time: 10:10 rt 03/06 09:02 Order name: NT PRO-BNP; Complete Time: 10:10 rt 03/06 09:02 Order name: PT-INR; Complete Time: 09:51 rt 03/06 09:02 Order name: Troponin HS; Complete Time: 10:10 rt 03/06 09:02 Order name: Type And Screen rt 03/06 09:02 Order name: UAM; Complete Time: 18:35 rt 03/06 10:32 Order name: Packed RBC Leukored EDMS 03/06 11:35 Order name: Basic Metabolic Panel EDMS 03/06 11:35 Order name: Basic Metabolic Panel EDMS 03/06 11:35 Order name: CBC with Automated Diff EDMS 03/06 11:35 Order name: CBC with Automated Diff EDMS 03/06 11:35 Order name: NT PRO-BNP EDMS 03/06 11:35 Order name: NT PRO-BNP EDMS 03/06 11:35 Order name: Troponin High Sensitivity EDMS 03/06 11:35 Order name: Troponin High Sensitivity; Complete Time: 16:43 EDMS 03/06 11:35 Order name: Troponin High Sensitivity EDMS 03/06 17:58 Order name: Troponin High Sensitivity; Complete Time: 18:46 snw 03/06 19:28 Order name: Miscellaneous Test Lab EDMS 03/06 09:02 Order name: XRAY Chest (1 view); Complete Time: 09:51 rt 03/06 12:40 Order name: Echo with Doppler EDMS 03/06 09:02 Order name: EKG; Complete Time: 09:03 rt 03/06 11:35 Order name: Low Sodium EDMS 03/06 11:41 Order name: CONS Physician Consult EDMS 03/06 11:41 Order name: CONS Physician Consult EDMS 03/06 09:02 Order name: Cardiac monitoring; Complete Time: 09:30 rt 03/06 09:02 Order name: EKG - Nurse/Tech; Complete Time: 10:17 rt 03/06 09:02 Order name: IV Saline Lock; Complete Time: 10:17 rt 03/06 09:02 Order name: Labs collected and sent; Complete Time: 09:30 rt 03/06 09:02 Order name: O2 Per Protocol; Complete Time: 09:30 rt 03/06 09:02 Order name: O2 Sat Monitoring; Complete Time: 09:30 rt 03/06 09:49 Order name: Consent for Blood Transfusion; Complete Time: 11:29 snw 03/06 09:49 Order name: IV Saline Lock; Complete Time: 10:16 snw EC:15 Rate is 93 beats/min. Rhythm is regular. QRS [place] is Normal. Q waves are Present in snw leads V1, V2, V3, V4. ST Segment is elevated in lead aVR. ST Segment is depressed in leads V5, V6, 2-5mm. Clinical impression: NSR w/ Non-specific ST/T Changes. Administered Medications: 13:01 Drug: Pantoprazole IVP 40 mg Route: IVP; Site: right forearm; nj1 19:15 Follow up: Response: No adverse reaction nj1 18:44 Drug: Furosemide IVP 20 mg Route: IVP; Site: right forearm; nj1 21:10 Follow up: Response: No adverse reaction nj1 18:45 Drug: Pantoprazole IV 8 mg/hr Route: IV; Rate: 25 ml/hr; Site: right forearm; nj1 Disposition: 15:29 Co-signature as Attending Physician, Shaquille Brothers MD I agree with the assessment and rt plan of care. I reviewed the patient's care provided by Advanced Practice Provider \T\ agree w/ the diagnosis \T\ care plan. I personally saw the pt \T\ performed a substantive portion of the visit, incldng all aspects of the (History/Exam/Medical Decision Making). Disposition Summary: 03/06/23 11:01 Hospitalization Ordered Hospitalization Status: Inpatient Admission snw Provider: Cole Bella Location: Telemetry/MedSurg (Inpatient) snw Condition: Stable snw Problem: an acute exacerbation snw Symptoms: have worsened snw Bed/Room Type: Standard snw Room Assignment: [facility](03/06/23 20:30) eb1 Diagnosis - Anemia, unspecified snw - Subsequent non-ST elevation (NSTEMI) myocardial infarction snw Forms: - Medication Reconciliation Form snw - SBAR form snw - Leadership Thank You Letter snw Signatures: Dispatcher [employer] Denise Bass FNP-C CLERICAL PRODUCTION WORKER-Csnw Jennifer Musa, RN RN iw Genevieve Stanton RN RN eb1 Shaquille Brothers MD MD rt Florecita Menendez RN RN nj1 Corrections: (The following items were deleted from the chart) 08:50 08:48 Home Meds: furosemide 20 mg Oral tablet daily; [facility] 10:30 09:50 PACKED RBC LEUKORED+BB.LAB.BRZ ordered. EDMS EDMS 09:52 ABO/RH typing ordered. EDMS EDMS :52 Antibody Screen ordered. EDMS EDMS 18:34 09:20 Pt has been going to the Cancer center for blood pressure checks weekly. She sees snw Dr. Hunter for anemia. Pt rec'd last blood transfusion 2 weeks ago. Pt states she has been having really low pressures for two days and feels weak, tired, and a little dizzy. snw : 11:01 snw eb1
--- NOTE | 2023-03-06 11:02 | ER ---
Nurse's Notes [facility] Name: Mima Dougherty Age: 87 yrs Sex: Female : 1935 Arrival Date: 03/06/2023 Time: 08:20 Bed 17 Private MD: Diagnosis: Anemia, unspecified;Subsequent non-ST elevation (NSTEMI) myocardial infarction Presentation: 03/06 08:44 Chief complaint: Patient states: has had low blood pressure today, has hx of anemia , iw also feeling SOB and weak. Coronavirus screen: At this time, the client does not indicate any symptoms associated with coronavirus-19. Ebola Screen: Patient negative for fever greater than or equal to 101.5 degrees Fahrenheit, and additional compatible Ebola Virus Disease symptoms Patient denies exposure to infectious person. Patient denies travel to an Ebola-affected area in the 21 days before illness onset. No symptoms or risks identified at this time. 08:44 Method Of Arrival: Ambulatory iw 08:44 Initial Sepsis Screen: Does the patient meet any 2 criteria? No. Patient's initial iw sepsis screen is negative. Does the patient have a suspected source of infection? No. Patient's initial sepsis screen is negative. Risk Assessment: Do you want to hurt yourself or someone else? Patient reports no desire to harm self or others. Onset of symptoms was March 06, 2023. 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 - Social history:: Smoking status: unknown. Screenin:45 [facility] ED Fall Risk Assessment (Adult) Score/Fall Risk Level 0 - 2 = Low Risk nj1 Oriented to surroundings, Maintained a safe environment, Hourly rounding (assess needs \T\ fall precautionary measures) done. Abuse screen: Denies threats or abuse. Denies injuries from another. Nutritional screening: No deficits noted. Tuberculosis screening: No symptoms or risk factors identified. Assessment: 09:35 General: Appears in no apparent distress. comfortable, Behavior is calm, cooperative, nj1 appropriate for age. Neuro: Level of Consciousness is awake, alert, obeys commands, Oriented to person, place, situation. Cardiovascular: Patient's skin is warm and dry. Respiratory: Airway is patent Respiratory effort is even, unlabored. 09:35 Neuro: Reports weakness in generalized. Derm: Skin is pale. nj1 10:30 Reassessment: Patient appears in no apparent distress at this time. Patient and/or nj1 family updated on plan of care and expected duration. Pain level reassessed. Patient is alert, oriented x 3, equal unlabored respirations, skin warm/dry/pink. General:. 11:30 Reassessment: Patient appears in no apparent distress at this time. Patient and/or nj1 family updated on plan of care and expected duration. Pain level reassessed. Patient is alert, oriented x 3, equal unlabored respirations, skin warm/dry/pink. 12:48 Reassessment: Patient appears in no apparent distress at this time. Patient and/or nj1 family updated on plan of care and expected duration. Pain level reassessed. Patient is alert, oriented x 3, equal unlabored respirations, skin warm/dry/pink. 14:05 Reassessment: Patient appears in no apparent distress at this time. Patient and/or nj1 family updated on plan of care and expected duration. Pain level reassessed. Patient is alert, oriented x 3, equal unlabored respirations, skin warm/dry/pink. 15:00 Reassessment: Patient appears in no apparent distress at this time. Patient and/or nj1 family updated on plan of care and expected duration. Pain level reassessed. Patient is alert, oriented x 3, equal unlabored respirations, skin warm/dry/pink. 16:18 Reassessment: Patient appears in no apparent distress at this time. Patient and/or nj1 family updated on plan of care and expected duration. Pain level reassessed. Patient is alert, oriented x 3, equal unlabored respirations, skin warm/dry/pink. 18:10 Reassessment: Patient appears in no apparent distress at this time. Patient and/or nj1 family updated on plan of care and expected duration. Pain level reassessed. Patient is alert, oriented x 3, equal unlabored respirations, skin warm/dry/pink. Vital Signs: 08:44 BP 115 / 57; Pulse 101; Resp 20; Temp 97.7(TE); Pulse Ox 97% on R/A; iw 09:30 BP 117 / 55; Pulse 93; Resp 20; Pulse Ox 93% on R/A; nj1 10:18 BP 107 / 54; Pulse 92; Resp 18; Pulse Ox 100% on R/A; nj1 11:30 BP 104 / 55; Pulse 95; Resp 20; Pulse Ox 96% on R/A; nj1 12:48 BP 110 / 59; Pulse 92; Resp 17; Pulse Ox 97% ; nj1 14:05 BP 122 / 60; Pulse 90; Resp 20; Temp 97.8(O); Pulse Ox 97% on R/A; nj1 15:00 BP 122 / 66; Pulse 89; Resp 24; Pulse Ox 96% on R/A; nj1 16:18 BP 132 / 65; Pulse 96; Resp 20; Temp 97.9; Pulse Ox 98% on R/A; Pain 2/10; nj1 18:10 BP 133 / 75; Pulse 88; Resp 24; Temp 98.1(O); Pulse Ox 93% on R/A; Pain 2/10; nj1 21:01 BP 137 / 90; Pulse 89; Resp 20; Pulse Ox 96% on R/A; nj1 16:18 Pain Scale: Adult nj1 18:10 Pain Scale: Adult nj1 ED Course: 08:22 Patient arrived in ED. mg5 08:23 Shaquille Brothers MD is Attending Physician. rt 08:45 Triage completed. iw 08:47 Arm band placed on. iw 08:50 Amanda Renner, KUN is Primary Nurse. ko1 09:03 Densie James FNP-C is PHCP. snw 09:35 Patient has correct armband on for positive identification. Bed in low position. Call nj1 light in reach. Side rails up X 1. 09:35 Provided Education on: fall precautions, call light. nj1 09:43 XRAY Chest (1 view) In Process Unspecified. EDMS 10:04 Inserted saline lock: 22 gauge in right forearm, using aseptic technique. Blood nj1 collected. 11:00 Cole Bella MD is Hospitalizing Provider. snw 17:55 Inserted saline lock: 22 gauge in left antecubital area, using aseptic technique. Blood nj1 collected. 21:02 No provider procedures requiring assistance completed. Patient admitted, IV remains in va1 place. Administered Medications: 13:01 Drug: Pantoprazole IVP 40 mg Route: IVP; Site: right forearm; nj1 19:15 Follow up: Response: No adverse reaction nj1 18:44 Drug: Furosemide IVP 20 mg Route: IVP; Site: right forearm; nj1 21:10 Follow up: Response: No adverse reaction nj1 18:45 Drug: Pantoprazole IV 8 mg/hr Route: IV; Rate: 25 ml/hr; Site: right forearm; nj Medication: 21:10 VIS not applicable for this client. nj1 Outcome: 11:01 Decision to Hospitalize by Provider. snw 21:02 Admitted to Med/surg accompanied by tech, via wheelchair, room 212, Report called to banner Nurse Stephon 21:02 Condition: stable 21:02 Instructed on the need for admit. 21:51 Patient left the ED. banner Signatures: Dispatcher [employer] EDMS Denise James, PRECISION LENS GENERATOR-C PRECISION LENS GENERATOR-Csnw Jennifer Musa RN RN Amanda Renner RN RN koShaquille Apple MD MD rt Florecita Menendez, RN RN nj1 Day Nolasco mg5 Corrections: (The following items were deleted from the chart) 08:47 08:44 Pulse 101bpm; Resp 20bpm; Pulse Ox 97% RA; Temp 97.7F Temporal; iw 08:50 08:48 Home Meds: furosemide 20 mg Oral tablet daily; iw 10:19 10:18 BP 107 / 54; Pulse 92bpm; Resp 18bpm; Pulse Ox 100%; nj nj 16:49 16:18 BP 132 / 65; Pulse 96bpm; Resp 20bpm; Pulse Ox 98% RA; Temp 97.9F; nj nj
[2023-03-06] MEDS ORDERED: ACETAMINOPHEN 500 MG TAB PO PRN (11:29)
[2023-03-06] MEDS ORDERED: IPRATROPIUM BROM 0.5MG/2.5ML NEB PRN (12:00)
[2023-03-06] MEDS ORDERED: ALBUTEROL 2.5 MG/3 ML NEB SOL NEB PRN (12:00)
[2023-03-06] MEDS: PANTOPRAZOLE INJ 80 MG in NA CHLORIDE 0.9% 250 ML IV SCH ×2 (12:00→23:00)
[2023-03-06] MEDS ORDERED: NA CHLORIDE 0.9% 500 ML ONE (13:05)
[2023-03-06] MEDS ORDERED: PANTOPRAZOLE 40 MG INJ ONE (13:05)
[2023-03-06] MEDS: FUROSEMIDE 20 MG/ 2ML VIAL IV SCH (17:00)
[2023-03-06 18:33] LABS: Specific Gravity 1.019 (1.005-1.030); Urine Bacteria None Seen /HPF (<20); Urine Bilirubin NEGATIVE (Negative); Urine Blood Negative (Negative); Urine Clarity Clear (Clear); Urine Color Light-Yellow (Yellow); Urine Glucose NEGATIVE (Negative); Urine Protein TRACE (Negative); Urine RBC <5 /HPF (None Seen); Urine Urobilinogen Normal (Normal)
[2023-03-06] MEDS: NA CHLORIDE 0.9% 250 ML IV SCH (23:01)
[2023-03-06] MEDS ORDERED: NA CHLORIDE 0.9% 250 ML ONE (23:02)
[2023-03-06 23:41] VITALS: BMI 22.3
--- NOTE | 2023-03-07 01:28 | CON ---
Date of Consultation: 03/06/2023 Reason For Consultation: Elevated troponin. History Of Present Illness: An 87-year-old female with history of atrial fibrillation, has been on C oumadin for a long time. Presented with generalized weakness, very tired, and pale. Was found to w[place] ve a hemoglobin of 5. Denies having any chest pain, but she has mild shortness of breath on exertion . Troponin was positive upon arrival, but no acute EKG changes. Past Medical History: As outlined above in HPI. Medications: Refer reconciliation sheet for detailed list. Allergies: AMIODARONE, LISINOPRIL, LOSARTAN, METOPROLOL. Family History: No premature coronary artery disease or cancer. Social History: She does not smoke or drink. Does not use any drugs. Review of Systems: All systems reviewed are negative except mentioned in HPI. Physical Examination: Vital Signs: Reviewed. Head and Neck: Pupils are equal, reactive to light. Intact eye movements. No JVD. No cervical lym phadenopathy. Neck is supple. Thyroid is not enlarged. Lungs: Crackles in both lung bases. No accessory muscle use or muscle retraction. Heart: Irregularly irregular. No extra sounds. Abdomen: Soft, nontender. Bowel sounds positive. No organomegaly. No masses or hernia. No rigidi ty or rebound. Extremities: No edema, clubbing, or cyanosis. Intact pulses. Skin: No rash. Neurologic: Alert, awake, oriented x3. No acute focal deficits appreciated. Investigations: Troponin peaked at 17,878. BUN 53, creatinine 1.1. Hemoglobin 5.5. Assessment/recommendations: 1.Elevated troponin. No chest pain. This could be still demand ischemia as the patient is severely anemic. Recommendation would be correct anemia first with blood transfusion and she probably has al so congestive heart failure because after the blood transfusion she had significant crackles. To sta rt her on Lasix, give her 40 mg IV Lasix for now and may get q.12 hours and obtain an echo tomorrow m krissying. Keep trending troponin until it rents down and recommend evaluation by GI and once the [facility] e of bleeding is identified and controlled, then a coronary angiogram will be planned. 2.Severe anemia. She is on anticoagulation for atrial fibrillation. Coumadin needs to be stopped i mmediately and the patient is not actively bleeding. I would recommend to check stool for blood. If there is no bleeding, then there is no need to reverse the INR, but if there is active bleeding, the n vitamin K should be given to reverse INR and transfuse to an acceptable level of hemoglobin of 9 at least and consult GI for esophagogastroduodenoscopy and colonoscopy. I will proceed with esophagoga stroduodenoscopy and colonoscopy despite the fact her troponin is high, likely the troponin elevation is secondary to severe anemia and probably underlying coronary artery disease, which will be identif ied once the anemia is corrected. 3.Atrial fibrillation. She is not a candidate for anticoagulation. She will need the left atrial a ppendage closure, which can be planned at a later time. /TAHIR Voice ID: [id number] Report ID: [id number]
--- NOTE | 2023-03-07 04:07 | HP ---
Date of Admission: 03/06/2023 Chief Complaint: Feeling weak. History Of Present Illness: This is an 87-year-old pleasant female patient, who came into emergency room with 2 to 3 days history of feeling very weak. Her systolic blood pressure day before yesterday at home was 60 and she stopped taking her blood thinner medications and yesterday she saw her market sales manager, Dr. Pulido, and yesterday her systolic blood pressure was around 100. Today, her systolic blood pressure was around 80 and with this ongoing complaints of feeling weak, she came into emergency room. She is also complaining of having some vague chest pain on pain scale 0 to 10. It is 2/10 and it is a constant feeling of chest pain in the lower center of her chest and midscapular region and that also started about 2 to 3 days ago, as she describes. She denies any blood in stool, but she thinks that lately she is having dark, black-colored stool. After she came into emergency room, she was evaluated and admitted to the hospital with severe anemia with hemoglobin 5.5, abnormal EKG, elevated troponin, and proBNP. Cardiology and GI consultation was requested and 2 units of PRBC blood transfusion was ordered, which was already completed by the time I saw her this evening. Her and daughter were present with her at bedside. Allergies: AMIODARONE CAUSING SWELLING OF THE FACE, LISINOPRIL CAUSING ANGIOEDEMA, LOSARTAN ALSO CAUSING ANGIOEDEMA, AND BETA-PARAS WITH THROAT SWELLING TYPE OF SIDE EFFECT. Current Medications: Tekturna 300 mg daily, aspirin 81 mg daily, furosemide 20 mg daily, gabapentin 100 mg 2 times a day, hydralazine 50 mg 2 times a day, lovastatin 20 mg daily, propafenone 225 mg 3 times a day, tizanidine 2 mg at bedtime, and warfarin 3 mg daily, famotidine 20 mg daily at bedtime, Breo Ellipta inhaler 1 puff daily. Review of Systems: Constitutional: As mentioned above. Cardiovascular: As mentioned above. GI: As mentioned above. Past Medical History: Significant for COPD, allergic rhinitis, hypertension, hyperlipidemia, chronic atrial fibrillation, anemia, chronic diastolic heart failure, and osteopenia. Past Surgical History: Cataract surgery, tonsillectomy, removal of left breast cyst, ablation for atrial fibrillation, and fracture surgery. Family History: Father had coronary artery disease. Mother had thyroid disorder and hyperlipidemia. Brother with lung cancer and kidney cancer. Sister with diabetes. Social History: Negative for smoking, but she did smoke in the past, but has not in many years and use of alcohol with occasional glass of wine Physical Examination: Vital Signs: When she first came to emergency room, blood pressure was 115/57, pulse 101, respiratory rate 20, temperature 97.7, oxygen saturation 97%. General: Awake, alert, oriented, not in distress. HEENT: Head atraumatic, normocephalic. Eyes show pale conjunctivae. Mouth, no thrush or edema noted. Ears/Nose, no mass, lesion, discharge noted. Neck: Supple. No JVD, lymph nodes, bruit, thyromegaly noted. Lungs: Bilateral good equal air entry. Clear to auscultation. No rhonchi. No rales. Heart: Normal heart sounds, no murmur or gallop. Abdomen: Soft, bowel sounds normal. No guarding, rigidity, tenderness, mass, hepatosplenomegaly, distention, or bruit noted. Extremities: No leg edema. No calf tenderness. Skin: No rash, ulcer, cellulitis. Lymphatics: No lymph node enlargement in neck, supraclavicular, infraclavicular region. Neuro: No focal neurological deficit. Chest: Unremarkable. External Genitalia: Deferred. Rectal: Deferred. Laboratory Data: Chest x-ray shows chronic bilateral lung opacities. White count 6.9, hemoglobin 5.5, platelets 179. Sodium 144, potassium 4.1, chloride 114, bicarb 25, BUN 53, creatinine 1.21, glucose 124. Liver function tests unremarkable except AST 43. First troponin 4159, second troponin 11,872. ProBNP 10,430. EKG shows ST-T depression in lead V4, 5, 6, and 7. INR is 2.39 Impression: 1. Non-ST elevation myocardial infarction. 2. Anemia. 3. Chronic atrial fibrillation. 4. Chronic anticoagulation therapy. 5. Hypertension. 6. Hyperlipidemia. 7. Congestive heart failure, chronic, diastolic. 8. Chronic kidney disease, stage 3A. Plan: We will go ahead and admit the patient to hospital for further evaluation and management of this problem. The patient is appropriate for inpatient and is expected to spend 2 midnights in hospital. We will consult proced tech and market sales manager. Start the patient on IV Protonix drip. She received 2 units of PRBC blood transfusion. We will give 1 dose of Lasix and follow up on post transfusion hemoglobin and then decide if she needs any further blood transfusion or not. The patient is on chronic anticoagulation therapy using warfarin and her INR is within therapeutic range. We will not give any warfarin right now and follow up with her market sales manager. The patient has seen her market sales manager Dr. Pulido yesterday and informed me that Dr. Pulido has scheduled a Watchman procedure to be done on 03/20/2023. We will monitor blood pressure and give her antihypertensive medication as it becomes necessary. Continue statin therapy for hyperlipidemia and details and plan of treatment discussed with the patient and patient's and daughter were present at bedside. I will see her tomorrow morning for followup. DARWIN/TAHIR Voice ID: [id number] MTDD
[2023-03-07 04:29] LABS: Absolute Lymphocytes (CBC) 1.5 K/uL (0.7-4.9); Hematocrit 27.1 % (36.0-45.0); Lymphocytes % 17.1 % (15.3-44.8); MCV 90.5 fL (80-100); MPV 8.3 fL (7.6-11.3); Platelets 179 thou/uL (152-406)
[2023-03-07 05:47] LABS: Potassium 3.7 mEq/L (3.5-5.1)
[2023-03-07] MEDS: PANTOPRAZOLE INJ 80 MG in NA CHLORIDE 0.9% 250 ML IV SCH ×4 (05:55→19:17)
[2023-03-07] MEDS: NA CHLORIDE 0.9% 250 ML IV SCH (06:40)
[2023-03-07] MEDS ORDERED: NA CHLORIDE 0.9% 0 ML ONE (06:51)
[2023-03-07] MEDS ORDERED: ALISKIREN PO SCH (09:00)
[2023-03-07] MEDS: FUROSEMIDE 20 MG/ 2ML VIAL IV SCH ×2 (10:15→19:24)
[2023-03-07] MEDS: GABAPENTIN 100 MG CAP PO SCH ×2 (10:15→22:06)
[2023-03-07] MEDS: PROPAFENONE 225 MG CAP PO SCH ×3 (10:16→21:00)
--- NOTE | 2023-03-07 12:29 | EKG ---
Test Date: 2023-03-06 Test Time: 10:15:59 [employer]: TERRI MEASUREMENT RESULTS: Intervals: Rate: 93 FL: 126 QRSD: 88 QT: 352 QTc: 437 [place]: P: 70 FL: 126 QRS: 88 T: 105 INTERPRETIVE STATEMENTS: Sinus rhythm with premature supraventricular complexes Anterior infarct, age undetermined ST & T wave abnormality, consider lateral ischemia Abnormal ECG Compared to ECG 11/30/2022 01:52:52 Atrial premature complex(es) now present Myocardial infarct finding now present ST (T wave) deviation now present Possible ischemia now present Right bundle-branch block no longer present Electronically Signed On 03-07-23 12:25:29 CDT by Matthew Reaves
[2023-03-07] MEDS ORDERED: Ringers Lactate 1,000 ML IV ONE (16:57)
[2023-03-07] MEDS ORDERED: propofoL 200 MG/20 ML VIAL IV ONE (17:21)
[2023-03-07] MEDS ORDERED: PANTOPRAZOLE 40 MG INJ ONE (18:47)
[2023-03-07] MEDS ORDERED: MAGNESIUM CITRATE 300 ML BOT PO SCH (19:00)
[2023-03-07] MEDS ORDERED: GOLYTELY 4000 ML PO SCH (19:00)
[2023-03-07] MEDS: ATORVASTATIN 40 MG TAB PO SCH (22:06)
--- NOTE | 2023-03-07 23:31 | PN ---
Date of Progress Note: 03/07/2023 Subjective: The patient was seen this morning for followup. No new complaints or problems reported by her. She was lying in bed, not in distress. Objective: Vital Signs: Reviewed. HEENT: Unremarkable. Lungs: Bilateral good equal air entry. Presence of some rales noted in lung base, not using accesso ry muscles of respiration. Heart: Sounds normal. Abdomen: Soft, bowel sounds normal. No guarding, rigidity, tenderness, distention. Extremities: No leg edema. Laboratory Data: White count 8.5, hemoglobin 9.6, platelets 179. Sodium 144, potassium 3.7, chlorid e 113, bicarb 23, BUN 40, creatinine 1.10, glucose 116. ProBNP 40,737. Impression: 1.Cjy-BC-gmopoiitj myocardial infarction. 2.Anemia. 3.Hypertension. 4.Chronic kidney disease, stage 3A. 5.Chronic anticoagulation therapy. Plan: Patient received 2 units of PRBC blood transfusion. We will follow up on hemoglobin on a brenda y basis with tomorrow's blood work. We will discontinue her maintenance IV fluid that she is getting at 30 cc/hour. She is on IV Protonix drip. We will continue that. Follow up with GI Service, Dr. Milian for endoscopy workup and Cardiology consultation is appreciated. We will get echo Doppler in a day. Details of plan of treatment discussed with the patient. Continue Tekturna and her antiarrhythmic me dication per order. DARWIN/MODL Voice ID: [id number] Report ID: [id number]
[2023-03-08] MEDS: PANTOPRAZOLE INJ 80 MG in NA CHLORIDE 0.9% 250 ML IV SCH ×2 (04:00→13:19)
[2023-03-08] MEDS: PROPAFENONE 225 MG CAP PO SCH ×3 (08:38→20:59)
[2023-03-08] MEDS: FUROSEMIDE 20 MG/ 2ML VIAL IV SCH (08:39)
[2023-03-08] MEDS: GABAPENTIN 100 MG CAP PO SCH ×2 (08:39→20:58)
[2023-03-08] MEDS: TEKTURNA 300 MG PO SCH (08:39)
[2023-03-08 09:09] LABS: Absolute Lymphocytes (CBC) 1.2 K/uL (0.7-4.9); Hematocrit 30.3 % (36.0-45.0); Lymphocytes % 13.6 % (15.3-44.8); MCV 93.4 fL (80-100); MPV 8.4 fL (7.6-11.3); Platelets 195 thou/uL (152-406); RBC Red Blood Cell Count 3.24 M/uL (3.86-4.86)
[2023-03-08 09:27] LABS: Potassium 3.7 mEq/L (3.5-5.1)
[2023-03-08 09:34] LABS: Troponin High Sensitivity 9460.2 pg/mL (<58.9)
[2023-03-08] MEDS: METOCLOPRAMIDE 10 MG/2mL INJ IV SCH ×3 (11:04→18:25)
--- NOTE | 2023-03-08 13:13 | PN ---
Date of Progress Note: 03/08/2023 Subjective: The patient was seen this morning. Her and daughter were present with her in th e room. She denies any new complaints this morning. No abdominal pain, nausea, vomiting. No shortn ess of breath. She was on nasal cannula oxygen at 2 L/minute. Physical Examination: Vital Signs: Reviewed. This morning; temperature 97.9, pulse 80, blood pressure 107/61, oxygen satu ration 97% with 2 L nasal cannula oxygen. HEENT: Unremarkable. Lungs: Clear to auscultation. Not using any accessory muscles of respiration. No rhonchi. No rale s. Heart: Sounds normal. Abdomen: Soft. Bowel sounds normal. No guarding, rigidity, tenderness, distention. Extremities: No leg edema. Laboratory Data: White count 9.1, hemoglobin 10.2, platelets 195. Sodium 146, potassium 3.7, chlori de 117, bicarb 24, BUN 40, creatinine 1.36, glucose 129. Troponin 9460 and cholesterol triglyceride was 115, total cholesterol 167, LDL 82, HDL 62. Impression: 1.Non-ST segment elevation myocardial infarction. 2.Acute blood loss anemia. 3.Hypertension. 4.Chronic diastolic heart failure. 5.Hyperlipidemia. 6.Chronic anticoagulation therapy. Plan: We will go ahead and discontinue furosemide that currently she is taking considering today's c hemistry lab results and no evidence of any fluid overload on exam. Hemoglobin is stable after blood transfusion, no need for any blood transfusion now. EGD done yesterday by Dr. Milian had shown duod enitis changes. She is on Protonix drip, we will continue that. Dr. Milian is planning to do colono scopy tomorrow and our plan will be possibly to discharge her tomorrow after colonoscopy if she is st able. I did talk to her and her family today regarding the risk and benefit of anticoagulation thera py and at this time, benefit of continuing anticoagulation therapy is more than the risk and she is s cheduled to have Watchman procedure on 03/20/2023, which is being arranged by her clean up supervisor, Dr. Erika chance and she will keep her appointment. Echocardiogram will be done today. DARWIN/MODL Voice ID: [id number] Report ID: [id number]
[2023-03-08] MEDS ORDERED: BISACODYL E.C. 5 MG TAB PO ONE ×2 (19:00)
[2023-03-08] MEDS: ATORVASTATIN 40 MG TAB PO SCH (20:58)
--- NOTE | 2023-03-08 21:25 | P.PN ---
Subjective Date of Service: 03/08/23 Chief Complaint: Anemia Subjective: New changes (EGD -> only mild duodenitis. Still has half of Go- Lytely to drink for colonoscopy tomorrow.) Physical Examination - Vital Signs Temperature: 97.8 F Blood Pressure: 112/62 Pulse: 89 Respirations: 16 Pulse Ox (%): 97 Assessment And Plan - Plan REC: 1) colonoscopy tomorrow 2) IVFs 3) CLs 4) monitor labs and transfuse prn
[2023-03-09 04:02] LABS: Hematocrit 28.9 % (36.0-45.0); Lymphocytes % 13.8 % (15.3-44.8); MCV 92.9 fL (80-100); MPV 9.6 fL (7.6-11.3); Platelets 163 thou/uL (152-406); RBC Red Blood Cell Count 3.11 M/uL (3.86-4.86)
[2023-03-09 04:05] LABS: Protime INR 2.09
[2023-03-09 04:17] LABS: Magnesium 2.7 mg/dL (1.6-2.4); Phosphorus 2.8 mg/dL (2.5-4.9); Potassium 3.1 mEq/L (3.5-5.1)
[2023-03-09] MEDS: PANTOPRAZOLE INJ 80 MG in NA CHLORIDE 0.9% 250 ML IV SCH ×3 (04:45)
[2023-03-09] MEDS: GABAPENTIN 100 MG CAP PO SCH (07:35)
[2023-03-09] MEDS: TEKTURNA 300 MG PO SCH (07:35)
[2023-03-09] MEDS: PROPAFENONE 225 MG CAP PO SCH ×2 (07:35→13:11)
[2023-03-09] MEDS: KCL 20 MEQ/100 mL IVPB 20 MEQ/100 ML BAG IV SCH ×2 (11:15→13:10)
[2023-03-09] MEDS ORDERED: NA CHLORIDE 0.9% 250 ML ONE (11:26)
--- NOTE | 2023-03-09 12:10 | DS ---
Date of Discharge: 03/09/2023 Disposition: Patient will be discharged to go home after colonoscopy today. Physical Examination: HEENT: Unremarkable. Lungs: Clear to auscultation. Heart: Sounds normal. No murmur, gallop, and heart rhythm is irregularly irregular consistent with atrial fibrillation. Abdomen: Soft. Bowel sounds normal. No guarding, rigidity, tenderness, distention. Extremities: No leg edema. Laboratory Data: Upon admission, white count 6.9, hemoglobin 5.5, platelets 179, and after 2 units of PRBC blood transfusion next hemoglobin was 9.6 and yesterday hemoglobin was 10.2 and today hemoglobin is 10. Today's platelet count 163, white count 7.40. Last chemistry today sodium 146, potassium 3.1, chloride 113 bicarb 28, BUN 31, creatinine 1.16, glucose 103. Magnesium 2.7. Last troponin yesterday 9460 and highest troponin was 22,012 and that was on 03/06/2023. Discharge Medications And Instructions: Continue all prior home medication except following changes: 1. Stop lovastatin. 2. Start atorvastatin 40 mg, take 1 tablet by mouth daily at bedtime. 3. Check your blood pressure before taking your dose of hydralazine and if your systolic blood pressure is less than 130, then do not take a dose of hydralazine at that time. 4. Start pantoprazole 40 mg 1 tablet by mouth daily in morning 30 minutes before breakfast. 5. Call Dr. Pulido's office on 03/11/2023 to find out when does he want you to stop your warfarin since your going to have Watchman procedure on 03/20/2023. 6. Follow up at my office during week off 03/25/2023. 7. Follow up with Dr. Milian in one month. Hospital Course: This is an 87-year-old very pleasant female patient who was admitted to the hospital after she came into emergency room complaining of feeling weak. Please see dictated H and P for more information. After patient was evaluated in the ER, she was admitted to the hospital. Patient had severe anemia and she was given 2 units of PRBC blood transfusion. She did report having some black melenic stool lately. She had significant hypotension at home for 2 days before she came into emergency room and this definitely could have caused demand ischemia as we believe. Cardiology consultation was requested from Dr. Reaves. At home, she takes chronic anticoagulation therapy using warfarin 3 mg daily, which is being managed by her shearing machine operator. She saw her shearing machine operator day before this admission and she is scheduled to have Watchman procedure done on 03/20/2023. After she was admitted to our hospital, we did not give her any anticoagulation therapy, gave her 2 units of PRBC blood transfusion and her hemoglobin came up and remained stable. GI consultation was obtained from Dr. Milian and he did EGD on her yesterday, which showed evidence of duodenitis with presence of some black pigmentation present inside the lining of the duodenum. No active bleeding noted. Patient was started on Protonix drip upon admission and we are continuing that throughout this hospital admission. Today, she is going to have colonoscopy and after the colonoscopy, our plan will be to discharge her to go home with above-mentioned medications and instructions. I did discuss with her regarding risk and benefit of anticoagulation therapy and at this point, her benefit of anticoagulation therapy is more than the risk involved unless we see something different on the colonoscopy finding. Her low potassium will be corrected today. Echocardiogram was done, result is still pending and I will follow up on at on outpatient basis. Final Diagnoses: 1. Fmt-[place]-lizvsnxvo myocardial infarction. 2. Anemia, acute due to gastrointestinal bleed. 3. Chronic atrial fibrillation. 4. Chronic anticoagulation therapy. 5. Hypertension. 6. Hyperlipidemia. 7. Congestive heart failure, chronic, diastolic. 8. Chronic kidney disease, stage 3A. 9. Hypokalemia. DARWIN/MODL Voice ID: [id number] Report ID: [id number] MARCELLO
[2023-03-09] MEDS ORDERED: Ringers Lactate 1,000 ML IV ONE (13:38)
[2023-03-09] MEDS ORDERED: propofoL 200 MG/20 ML VIAL IV ONE (14:40)
[2023-03-09] MEDS ORDERED: EPHEDRINE SULF 50 MG/ML VIAL ONE (15:09)
[2023-03-09 15:22] VITALS: TEMP 97.4
[2023-03-09 15:40] VITALS: BP 128/66
[2023-03-09 15:56] VITALS: O2SAT 95
[2023-03-10] MEDS ORDERED: PANTOPRAZOLE 40MG TABLET PO SCH (07:30)
--- NOTE | 2023-03-11 07:06 | ECHO ---
HEIGHT: 5 ft 2 in WEIGHT: 122 lb 0 oz DATE OF STUDY: 03/08/[address]: Denise Alberto COLUMNIST/COMMENTATOR-BC 2-DIMENSIONAL: YES M.MODE: YES DOPPLER: YES COLOR FLOW: YES TDS: PORTABLE: YES DEFINITY: BUBBLE STUDY: DIAGNOSIS: NON ST ELEVATION MYOCARDIAL INFARCTION, ANEMIA CARDIAC HISTORY: CATHERIZATION: SURGERY: PROSTHETIC VALVE: PACEMAKER: MEASUREMENTS (cm) DIASTOLIC (NORMALS) SYSTOLIC (NORMALS) IVSd 0.8 (0.6-1.2) LA Diam 3.6 (1.9-4.0) LVEF 34% LVIDd 5.1 (3.5-5.7) LVIDs 4.3 (2.0-3.5) %FS 16% LVPWd 1.0 (0.6-1.2) Ao Diam 2.3 (2.0-3.7) 2 DIMENSIONAL ASSESSMENT: RIGHT ATRIUM: NORMAL LEFT ATRIUM: NORMAL RIGHT VENTRICLE: NORMAL LEFT VENTRICLE: DEPRESSED EJECTION FRACTION TRICUSPID VALVE: SEVERE TRICUSPID REGURGITATION MITRAL VALVE: MODERATE TO SEVERE MITRAL REGURGITATION PULMONIC VALVE: MILD PULMONIC INSUFFICIENCY AORTIC VALVE: AORTIC SCLEROSIS PERICARDIAL EFFUSION: NONE AORTIC ROOT: NORMAL LEFT VENTRICULAR WALL MOTION: ANTERIOR WALL HYPOKINESIS DOPPLER/COLOR FLOW: SEE BELOW COMMENTS: 1. MODERATELY DEPRESSED LEFT VENTRICULAR EJECTION FRACTION 35-40% 2. ANTERIOR/ APICAL HYPOKINESIS 3. SEVERE TRICUSPID REGURGITATION 4. MODERATE TO SEVERE MITRAL REGURGITATION 5. MILD AORTIC INSUFFICIENCY 6. MODERATE PULMONARY HYPERTENSION WITH RIGHT VENTRICULAR SYSTOLIC PRESSURE OF 45-50 mmHg TECHNOLOGIST: ANTHONY GODWIN
== END 2023-03-09 18:18 | disposition home or self-care (01) | DRG 377 ==
LOC: ER 08:20 → 2ND 20:00
PROVIDERS: ADMIT Internal Medicine; ATTEND Internal Medicine
PROC: 0DB68ZX Excision of Stomach, Via Natural or Artificial Opening Endoscopic, Diagnostic (ICD-10-PCS; 2023-03-07)
PROC: 0DB88ZX Excision of Small Intestine, Via Natural or Artificial Opening Endoscopic, Diagnostic (ICD-10-PCS; 2023-03-07)
PROC: 0DB78ZX Excision of Stomach, Pylorus, Via Natural or Artificial Opening Endoscopic, Diagnostic (ICD-10-PCS; 2023-03-07)
PROC: 30233N1 Transfusion of Nonautologous Red Blood Cells into Peripheral Vein, Percutaneous Approach (ICD-10-PCS; 2023-03-07)
PROC: 0DJD8ZZ Inspection of Lower Intestinal Tract, Via Natural or Artificial Opening Endoscopic (ICD-10-PCS; principal; 2023-03-09 14:00)
DX: K29.81 Duodenitis with bleeding (principal); I21.A1 Myocardial infarction type 2; I48.20 Chronic atrial fibrillation, unspecified; I50.32 Chronic diastolic (congestive) heart failure; I13.0 Hypertensive heart and chronic kidney disease with heart failure and stage 1 through stage 4 chronic kidney disease, or unspecified chronic kidney disease; D62 Acute posthemorrhagic anemia; N18.31 Chronic kidney disease, stage 3a; D63.1 Anemia in chronic kidney disease; K63.5 Polyp of colon; J30.9 Allergic rhinitis, unspecified; K64.8 Other hemorrhoids; E78.5 Hyperlipidemia, unspecified; J44.9 Chronic obstructive pulmonary disease, unspecified; Z88.8 Allergy status to other drugs, medicaments and biological substances; Z86.73 Personal history of transient ischemic attack (TIA), and cerebral infarction without residual deficits; Z86.14 Personal history of Methicillin resistant Staphylococcus aureus infection; Z79.01 Long term (current) use of anticoagulants; Z79.82 Long term (current) use of aspirin; Z79.899 Other long term (current) drug therapy
CPT/HCPCS: 36415; 71045; 80048; 80061; 80076; 81001; 83735; 83880; 84100; 84484; 85025; 85610; 85730; 86850; 86900; 86901; 86920; 88305; 88312; 88313; 93005; 93306; 96374; 96375; 99285; C9113; J1940; J2704; J2765; J3480; J7040; J7050; J7120; P9016

== ENCOUNTER 2023-03-10 15:47 | Inpatient (IN) | payer OTHER ==
--- OUTSIDE RECORDS SUMMARY | 2023-03-10 15:52 | XMS REPORT | Continuity of Care Document ---
:[address] [facility] t Address [address] [place] [address] Care Team Providers Name Role Phone No, Pcp [facility] Primary Care Physician Unavailable Asa Lee Attending Clinician Unavailable Markel Mcpherson MD Attending Clinician Lenore Mendez MD Attending Clinician LENORE MENDEZ Attending Clinician Unavailable SHIN PATINO Attending Clinician Unavailable LENORE MENDEZ Admitting Clinician Unavailable Payers Payer Name Policy Type Policy Number Effective Date Expiration Date S ource Problems Condition Condition Condition Status Onset Resolution Last Treating Co mments Source Name Details Category Date Date Treatment Clinician Date Anemia An[facility] Allergies, Adverse Reactions, Alerts Allergy Allergy Status Severity Reaction(s) Onset Inactive Treating Comm ents Source Name Type Date Date Clinician Amiodaro Propensi Active [facility] ty [...] 00:00: Medical (Bulk) reaction 00 Center s AMIODARO Allergy Active [facility] 00:[facility]: Medical 00 Comptche LOSARTAN Allergy [facility] 00 [facility] LISINOPR Allergy Active [facility] 00:[facility]: Medical 00 Comptche METOPROL Allergy Active [facility] TARTRATE 00:00: Medical (BULK) 00 Center Social History Social Habit Start Date Stop Date Quantity Comments Source History [facility] Non-Med Medical Center Tobacco use and 2022-12-01 2022-12-01 [address] [facility] exposure [facility]00 00[facility]00:00 non-user Medical Center Alcohol intake 2022-12-01 2022-12-[address] [facility] 00:00:00 00:00:00 non-drinker Medical Cente r (finding) History [facility] 2022-11-30 2022-11-[address] [facility] Transport Med 00:00:00 00:00:[address] History [facility] 2022-11-30 2022-11-[address] [facility] Housing Unable to 00:00:00 00:00:00 Medical Center Pay History [facility] 2022-11-30 2022-11-[address] [facility] Housing Places 00:00:00 00:00:00 Medical Ce nter Lived History [facility] 2022-11-30 2022-11-[address] [facility] Housing Homeless 00:00:00 00:00:00 [facility] Last Year Sex Assigned At 1935 [address] [facility] [address] Kristin kes 00:00:00 00:00:00 [facility] Smoking Status Start Date Stop Date Source Never smoked tobacco [facility] Medications Ordered Filled Start Stop Current Ordering Indication Dosage Frequency Signature Comments Components Source Medication Medication Date Date Medication? Clinician (SIG) Name Name warfarin Yes 2mg QD Take [address] [facility] [address] (COUMADIN, 6-04 tablet (2 Luke s JANTOVEN) 2 12:33: mg total) M edical MG tablet 01 by mouth Center every evening. amLODIPine Yes hypertensio 5mg QD Take 1 [facility] [...] mouth Center nightly. psyllium 2023-0 Yes 1{packe Q.03051907 Take [address] (METAMUCIL) 6-04 t} [id number] packet by [facility] powder 12:33: 3D mouth in Medical 01 the Center morning and 1 packet at noon and 1 packet in the evening. propafenone 2023-0 Yes 225mg Q.39665705 Take [address] (RYTHMOL 6-04 [id number] capsule Kristin kes SR) 225 MG 12:33: [...] 0.05 % 01 hours. Center ophthalmic emulsion warfarin 2023-0 Yes 2mg QD Take [address] [facility] (COUMADIN, 6-04 tablet (2 Luke s JANTOVEN) 2 12:33: mg total) M edical MG tablet 01 by mouth Center every evening. amLODIPine 3-0 Yes hypertensio 5mg QD Take [address] (NORVASC) 5 6-04 n tablet (5 Devin es MG tablet 12:33: mg total) Med ical 01 by mouth Center in the morning. hydroCHLORO 2023-0 Yes 12.5mg QD Take [address] thiazide 6-04 capsule [facility] (MICROZIDE) 12:33: (12.5 mg Me dical 12.5 mg 01 total) by Center capsule mouth in the morning. aspirin 81 2022-0 Yes 81mg QD Take 1 [facility] t MG chewable 6-04 tablet (81 Kristin kes tablet 12:33: mg total) Medica l 01 by mouth Center in the morning. omega-3 3-0 Yes 1g QD Take [address] acid ethyl 6-04 capsule (1 Devin es esters 12:33: g total) Medical (LOVAZA) 1 01 by mouth Cente r gram in the capsule morning. lovastatin 2022-0 Yes 20mg QD Take 1 [facility] t (MEVACOR) 6-04 tablet (20 Luke s 20 MG 12:33: mg total) Medical tablet 01 by mouth Center nightly. psyllium 2022-0 Yes 1{packe Q.59826378 Take [address] (METAMUCIL) 6-04 t} [id number] packet by [facility]ukes powder 12:33: 3D mouth in Medical 01 the Center morning and 1 packet at noon and 1 packet in the evening. propafenone 2022-0 Yes 225mg Q.98601661 Take [address] (RYTHMOL 6-04 [id number] capsule Kristin kes SR) 225 MG 12:33: 3D (225 mg Medi kaiden 12 hr 01 total) by Center capsule mouth in the morning and 1 capsule (225 mg total) at noon and 1 capsule (225 mg total) in the evening. aliskiren 3-0 Yes 150mg QD Take 1 [facility] (TEKTURNA) 6-04 tablet [facility] 150 MG 12:33: (150 mg Medical tablet 01 total) by Center mouth in the morning. cycloSPORIN 2022-0 Yes 1[drp] [address] [...] kg Systolic blood 2022-12-01 07:30:00 144 mm[Hg] [facility] Diastolic blood 2022-12-01 07:30:00 63 mm[Hg] [facility] Heart rate 2022-12-01 07:30:00 81 /min [facility] Body temperature 2022-12-01 07:30:00 35.89 Khadra [facility] Respiratory rate 2022-12-01 07:30:00 18 /min [facility] Oxygen saturation in 2022-12-01 07:30:00 95 /min [facility] Arterial blood by Medical Ce nter Pulse oximetry Body height 2022-11-30 08:36:00 157.5 cm [facility] Body weight 2022-11-30 08:36:00 54.069 kg [facility] BMI 2022-11-30 08:36:00 21.80 kg/m2 [facility] Procedures Procedure Date / Time Performed Performing Clinician Sourc e MAGNESIUM 2022-12-01 03:47:00 [facility] PHOSPHORUS 2022-12-01 03:47:[address] [facility] CBC W/PLT COUNT & AUTO 2022-12-01 03:47:00 [facility] CBC W/PLT COUNT & AUTO 2022-12-01 03:47:00 [facility] BASIC METABOLIC PANEL 2022-12-01 03:47:00 Banjo, [facility] LACTATE DEHYDROGENASE 2022-11-30 19:56:00 Lenore Mendez [facility] (LDH) [facility] HAPTOGLOBIN 2022-11-30 19:56:00 Lenore Mendez [facility] HEMOGLOBIN AND HEMATOCRIT 2022-11-30 19:56:00 Lenore Mendez [facility] ANTI-NUCLEAR ANTIBODY 2022-11-30 19:56:00 Lenore Mendez [facility] (GEREMIAS) [facility] GEREMIAS TITER AND PATTERN 2022-11-30 19:56:00 Piotr Lenore C [facility] ABORH, MANUAL 2022-11-30 17:15:00 Neida Emanuel [facility] US RENAL COMPLETE 2022-11-30 15:34:00 Piotr Lenore C [facility] URINE CULTURE 2022-11-30 11:58:[address] [facility] CBC W/PLT COUNT & AUTO 2022-11-30 11:58:00 [facility] B-TYPE NATRIURETIC FACTOR 2022-11-30 11:58:00 [facility] (BNP) [facility] PT/APTT 2022-11-30 11:58:[address] [facility] URINALYSIS W/ REFLEX 2022-11-30 11:58:00 [facility] URINE CULTURE [facility] IRON, TIBC, % SAT. 2022-11-30 11:58:00 [facility] (WITHOUT FERRITIN) [facility] r PERIPHERAL BLOOD SMEAR - 2022-11-30 11:58:00 Lenore Mendez [facility] PATHOLOGIST REVIEW [facility] AND SCREEN, 2022-11-30 11:58:00 [facility] AUTOMATED [facility] CBC W/PLT COUNT & AUTO 2022-11-30 11:58:00 [facility] DIFFERENTIAL [facility] XR CHEST 1 VIEW PORTABLE 2022-11-30 09:58:[address] [facility] Medical Center Plan of Care Planned Activity Planned Date Details Comments Source Future Scheduled 2023-12-[address] [facility] Test 00:[facility]00 [facility] Screening (12+) [code = Tobacco Cessation Counseling and Screening (12+)] Future Scheduled 2023-12-[address] [facility] Test 00:00:00 [facility] r Screening (12+) [code = Tobacco Cessation Counseling and Screening (12+)] Future Scheduled 2023-03-01 Influenza Vaccine (#1) [facility] 00:00[facility]00 [code = Influenza Medical Ce nter Vaccine (#1)] Future Scheduled 2023-03-01 Influenza Vaccine (#1) [facility] 00:00:00 [code = Influenza Medical Ce nter Vaccine (#1)] Future Scheduled 2022-07-01 Medicare IPPE (WELCOME [facility] 00:00:00 TO MEDICARE) [code = Medical Center Medicare IPPE (WELCOME TO MEDICARE)] Future Scheduled 2022-07-01 Medicare IPPE (WELCOME C [...] Center VACCINES (1 of 2)] Future Scheduled 1952 DTAP/TDAP/TD VACCINES CH I [...] 65+ YRS (1 - PCV)] Future Scheduled 1939-11-02 PNEUMOCOCCAL 65+ YRS [facility] Test 00:00:00 (1 - PCV) [code = Medical Ce nter PNEUMOCOCCAL 65+ YRS (1 - PCV)] Future Scheduled 1934-05-04 COVID-19 VACCINE (#1) [facility] 00:00:00 [code = COVID-[address] VACCINE (#1)] Future Scheduled 1936-05[birth year]04 COVID-19 VACCINE (#1) [facility] 00:00:00 [code = COVID-[address] VACCINE (#1)] Encounters Start End Encounter Admission Attending Care Care Encounter Source Date/Time Date/Time Type Type Clinicians Facility Department ID 2023-03-20 Inpatient [facility], HCAWU HCAWU [id number] [facility] 08:00:[address] 2022-11-30 2022-12-01 [facility] [id number] [facility] 08:16:00 12:33:00 Encounter Lenore Mendez [facility] 2022-11-30 2022-12-01 [id number] [facility] 08:16:00 12:33:00 LENORE 2022-11-30 2022-12-01 [facility] VidaMarkel [facility] [id number] [facility] 08:16:00 12:33:00 Encounter Lenore Mendez [facility] 2022-11-30 2022-11-30 Travel [facility] [id number] [facility] 00:[facility]00 00:00:00 [facility] 2022-11-30 2022-11-30 Travel [facility] [id number] [facility] 00:[facility] 00:00:00 [facility] 2021-01-03 2021-01-03 Outpatient VICKY PATINO [...] code = 418) Test performed by IFA method.[id number] 12:27:35 Test Item Value Reference Range Interpretation Comments HAPTOGLOBIN (BEAKER) (test code = 162 mg/dL 14-258 366) Cassandra Developer ID - MMUrine [id number] 08:58:24 Test Item Value Reference Range Interpretation Comments Result (test code = No growth 6463-4) GENESIS (test code = If your patient does not GENESIS) have signs or symptoms of UTI, it is recommended NOT to treat, with the exception of and prior to urologic procedures. [facility] [id number] 08:58:24 Test Item Value Reference Range Interpretation Comments Result (test code = No growth 6463-4) GENESIS (test code = If your patient does not GENESIS) have signs or symptoms of UTI, it is recommended NOT to treat, with the exception of and prior to urologic procedures. [facility] [id number] 08:58:24 Test Item Value Reference Range Interpretation Comments CULTURE (BEAKER) (test code = 1095) No growth If your patient does not have signs or symptoms of UTI, it is recommended NOT to treat, with the exception of and prior to urologic procedures. [id number] 05:00:11 Test Item Value Reference Range Interpretation Comments MAGNESIUM (BEAKER) (test code = 2.4 mg/dL 1.5-3.0 627) Cassandra Developer ID - [id number] ID - [id number] ID - [id number] ID - [id number] METABOLIC [id number] 04:58:48 Test Item Value Reference Range Interpretation [...] not as accur ate as Creatinine Roz jimenes in predicting glom erular filtration rate . Estimated GFR is not appl icable for dialysis patien ts Cassandra Developer ID - [id number] ID - [id number] ID - [id number] ID - [id number] ID - [id number] ID - [id number] ID - EYDURZMCE808Mkdndkmq ID - [id number] ID - [id number] 04:57:25 Test Item Value Reference Range Interpretation Comments PHOSPHORUS (BEAKER) (test code = 3.0 mg/dL 2.5-4.5 604) Cassandra Developer ID - [id number] W/PLT COUNT & AUTO [id number] 04:43:48 Test Item Value Reference Range Interpretation [...] (BEAKER) (test code = 2801) U/S, RENAL, [id number] 20:52:00Reason for exam:->STAN vs [facility] : 1935 Sex: FFINAL [...] hydronephrosis 2.Small left pleural effusion Signed: [facility] Verified Date/Time: 11/30/2022 20:52:11 LACTATE DEHYDROGENASE (LDH) 2022-11-30 20:22:52 Test Item Value Reference Range Interpretation Comments LACTATE DEHYDROGENASE (BEAKER) (test 314 U/L 107-206 H code = 635) Cassandra Developer ID - TCAMACHOOperator ID - TCAMACHOOperator ID - TCAMACHOOperator ID - TCAMACHOHEMOGLOBIN AND [id number] 20:02:51 Test Item Value Reference Range Interpretation Comments HEMOGLOBIN (BEAKER) (test code = 10.2 GM/DL 12.0-15.5 L 410) HEMATOCRIT (BEAKER) (test code = 30.1 % 36.0-46.0 L 411) PERIPHERAL BLOOD SMEAR - PATHOLOGIST [id number] 15:30:52 Test Item Value Reference Range Interpretation Comments PERIPHERAL SMR REVIEW Normochromic, (BEAKER) (test code = normocytic anemia, no 2640) schistocytes. Mature leukocytes, no circulating blasts. Unremarkable platelet morphology. [id number] Hector Ordaz M.D. (BEAKER) (test code = (electronic signiture) 2291) Urinalysis w/Microscopic + Reflex to [id number] 12:43:33 Test Item Value Reference Range Interpretation Comments Color, UA (test code Yellow = 5778-6) Clarity, UA (test Slightly Cloudy code = 5767-9) Specific Harrison, UA 1.010 1.001-1.035 (test code = 5811-5) pH, UA (test code = 5.0-8.0 H 5803-2) Protein, UA (test 30 mg/dL Negative A code = 61273-4) Glucose, UA (test Negative Negative code = 365) Ketones, UA (test Trace Negative A code = 2514-8) Bilirubin, UA (test Negative Negative code = 24043-8) Blood, UA (test code Negative Negative = 90485-7) Nitrite, UA (test Positive Negative A code = 5802-4) Leukocytes, UA (test Moderate Negative A code = 5799-2) Urobilinogen, UA 0.2 (test code = 02812-8) Bacteria, UA (test Moderate code = 65980-4) RBC, UA (test code = 5-10 See_Comment [Autom ated 799-7) message] The system which generated this result transmit lurdes reference range : /HPF. The reference range was not used to interpret this result as normal/abnormal . WBC, UA (test code = 5-10 See_Comment [Autom ated 45235-4) message] The system which generated this result transmit lurdes reference range : /HPF. The reference range was not used to interpret this result as normal/abnormal . SQUAMOUS EPITHELIAL <5 See_Comment [Automa lurdes (test code = 56153-7) messag e] The system which generated this result transmit lurdes reference range : /HPF. The reference range was not used to interpret this result as normal/abnormal . Specimen Source (test code = 2795) Lab Interpretation Abnormal (test code = 20204-1) [facility]/Microscopic + Reflex to Culture 2022-11-30 12:43:33 Test Item Value Reference Range Interpretation Comments Color, UA (test code Yellow = 5778-6) Clarity, UA (test Slightly Cloudy code = 5767-9) Specific Harrison, UA 1.010 1.001-1.035 (test code = 5811-5) pH, UA (test code = 5.0-8.0 H 5803-2) Protein, UA (test 30 mg/dL Negative A code = 73665-7) Glucose, UA (test Negative Negative code = 365) Ketones, UA (test Trace Negative A code = 2514-8) Bilirubin, UA (test Negative Negative code = 12997-1) Blood, UA (test code Negative Negative = 50959-2) Nitrite, UA (test Positive Negative A code = 5802-4) Leukocytes, UA (test Moderate Negative A code = 5799-2) Urobilinogen, UA 0.2 (test code = 26343-7) Bacteria, UA (test Moderate code = 64367-8) RBC, UA (test code = 5-10 See_Comment [Autom ated 799-7) message] The system which generated this result transmit lurdes reference range : /HPF. The reference range was not used to interpret this result as normal/abnormal . WBC, UA (test code = 5-10 See_Comment [Autom ated 43513-8) message] The system which generated this result transmit lurdes reference range : /HPF. The reference range was not used to interpret this result as normal/abnormal . SQUAMOUS EPITHELIAL <5 See_Comment [Automa lurdes (test code = 38309-9) messag e] The system which generated this result transmit lurdes reference range : /HPF. The reference range was not used to interpret this result as normal/abnormal . Specimen Source (test code = 2795) Lab Interpretation Abnormal (test code = 97143-8) [facility]FLEX URINE [id number] 12:43:33 Test Item Value Reference Range Interpretation [...] pg/mL 0-100 H (test code = 700) Cassandra Developer ID - [id number], TIBC, % SAT. (WITHOUT FERRITIN)2022-11-30 12:33:25 Test Item Value Reference Range Interpretation Comments IRON (BEAKER) (test code = 547) 228.0 ug/dL 45.0-170.0 H TOTAL IRON BINDING CAPACITY 210 ug/dL 250-550 L (BEAKER) (test code = 769) IRON % SATURATION (2) (BEAKER) 109 % 20-55 H (test code = 2590) Cassandra Developer ID - [id number] ID - [id number] 12:30:17 Test Item Value Reference Range Interpretation [...] mechanical heart valves.CBC W/PLT COUNT & AUTO [id number] 12:11:23 Test Item Value Reference Range Interpretation [...] = 2801) RAD, CHEST, 1 VIEW, NON [id number] 10:19:00Reason for exam:->shortness of breathShould this be performed at the bedside?->Yes [facility] : 1935 Sex: FFINAL REPORT CLINICAL HISTORY: shortness of breath TECHNIQUE: 1 view of the chest. COMPARISON: None IMPRESSION: There is left lower lobe consolidation with a small left pleural effusion. There are patchy airspace opacities elsewhere bilaterally. The cardiomediastinal silhouette is magnified by technique. Signed: Madhuri Thompson MDReport Verified Date/Time: 11/30/2022 10:19:27 Notes Date/Time Note Provider Source 2022-12-01 07:57:40-00:00 ANKIT KHAN [facility] PROGRESS NOTE BRITNEY ALEJANDRE FACILITY: [facility] Billing #: [id number] Room: [address] [place] [address] MR #: [id number] : 1935 PHYSICIAN: Ankit Khan MD ADMISSION [...] be di scharged from GI standpoint. NBV/MODL /[id number] Electronically signed by: ANKIT KHAN at 20 21-12-02 07:28:08.000 2022-11-30 13:51:38-00:00 ANKIT KHAN [facility] CONSULTATION BRITNEY ALEJANDRE FACILITY: [facility] Billing #: [id number] Room: [address] [place] [address] MR #: [id number] : 1935 DATE OF ADMISSION: 11/30/2022 DATE OF CONSULTATION: REQUESTING PHYSICIAN: Lenore Mendez MD GEOPHYSICAL OPERATOR: Ankit Khan MD Gastroenterology Consultation REASON FOR CONSULTATION: Anemia. HISTORY OF PRESENT ILLNESS: This is an 87-year-o ld female with chronic anemia and on Coumadin for atrial fibril lation, who is transferred [facility] to [facility] after she was found to have anemia. It is unsure why transfer happened as the patient is not having any overt bleeding and responded well to blood transfusion. Her INR is pretty therapeutic. The patient's last EGD and colonosc opy were about six years ago. She states that she is followed b y crm specialist for chronic anemia, although she has never [...] at this time she seems stable. CATHIE/TAHIR /[id number] .000
[2023-03-10 16:20] LABS: Hematocrit 31.2 % (36.0-45.0); MCV 94.4 fL (80-100)
[2023-03-10 16:21] LABS: Absolute Lymphocytes (CBC) 1.1 K/uL (0.7-4.9); Lymphocytes % 16.9 % (15.3-44.8); MPV 8.2 fL (7.6-11.3); Platelets 234 thou/uL (152-406)
[2023-03-10 16:27] LABS: Protime INR 1.36
[2023-03-10] MEDS ORDERED: NA CHLORIDE 0.9% 500 ML ONE ×2 (16:27→17:23)
[2023-03-10 16:34] LABS: Potassium 3.6 mEq/L (3.5-5.1)
--- NOTE | 2023-03-10 17:50 | EDPHYS ---
Physician Documentation [facility] Name: Mima Dougherty Age: 87 yrs Sex: Female : 1935 Arrival Date: 03/10/2023 Time: 15:47 Bed 7 Private MD: ED Physician Chester Camarillo HPI: 03/10 16:13 This 87 yrs old Female presents to ER via Unassigned with complaints of General rn Weakness, low blood pressure. 16:13 Patient reports feeling lightheaded and low blood pressure. Patient was just discharged rn from hospital yesterday after GI bleed and transfusion. Colonoscopy yesterday ruled out active bleed. Patient was told not to take her blood pressure medication and took it despite her blood pressure being 101 systolic today. Blood pressure below 80 systolic upon presentation. No syncope. No shortness of breath. No chest pain. No new abdominal pain or problems.. Historical: - Allergies: 16:19 Amiodarone; nj1 16:19 Cozaar; nj1 16:19 Lisinopril; nj1 16:19 Metoprolol Tartrate; nj1 - PMHx: 16:19 Atrial Fib; CVA; MRSA; pnumonia; nj1 - Immunization history:: Client reports receiving the 2nd dose of the Covid vaccine. - Social history:: Smoking status: Patient denies any tobacco usage or history of. - Family history:: not pertinent. - Hospitalizations: : The patient was recently seen at [facility]. ROS: 16:14 Constitutional: Negative for fever, chills, and weight loss, Eyes: Negative for injury, rn pain, redness, and discharge, Cardiovascular: Negative for chest pain, palpitations, and edema, Respiratory: Negative for shortness of breath, cough, wheezing, and pleuritic chest pain, Abdomen/GI: Negative for abdominal pain, nausea, vomiting, diarrhea, and constipation, Back: Negative for injury and pain, MS/Extremity: Negative for injury and deformity, Skin: Negative for injury, rash, and discoloration, Neuro: Negative for headache, numbness, tingling, and seizure. Exam: 16:14 Constitutional: This is a well developed, well nourished patient who is awake, alert, rn and in no acute distress. Head/Face: Normocephalic, atraumatic. ENT: Dry mucous membranes Cardiovascular: Regular rate and rhythm. No pulse deficits. Respiratory: No increased work of breathing, no retractions or nasal flaring. Abdomen/GI: Soft, non-tender Skin: Warm, dry MS/ Extremity: Pulses equal, no cyanosis. Neuro: Awake and alert, GCS 15, oriented to person, place, time, and situation. Cranial nerves II-XII grossly intact. Motor strength 4/5 in all extremities. Sensory grossly intact. 17:59 ECG was reviewed by the Attending Physician. rn Vital Signs: 15:56 BP 77 / 55; Pulse 106; Resp 18; Pulse Ox 97% on R/A; Weight 54.43 kg; Height 5 ft. 2 nj1 in. ; 16:00 BP 85 / 49; Pulse 108; Resp 16; Temp 98(O); Pulse Ox 100% ; mb9 16:27 BP 86 / 63; Pulse 105; Resp 16; Pulse Ox 100% on R/A; mb9 16:36 BP 85 / 52; Pulse 103; Resp 14; Pulse Ox 96% on R/A; mb9 17:05 BP 93 / 68; Pulse 106; Resp 14; Pulse Ox 98% on R/A; mb9 17:32 BP 106 / 67; Pulse 99; Resp 14; Pulse Ox 100% on R/A; mb9 18:16 BP 111 / 72; Pulse 102; Resp 18; Pulse Ox 98% on R/A; mb9 18:50 BP 116 / 86; Pulse 107; Resp 14; Pulse Ox 100% on R/A; mb9 15:56 Body Mass Index 21.95 (54.43 kg, 157.48 cm) nj1 MDM: 16:01 Patient medically screened. rn 17:49 Differential Diagnosis Adverse effect of blood pressure medication, acute kidney rn injury, dehydration. Data reviewed: vital signs, nurses notes, lab test result(s), EKG, and as a result, I will admit patient. Consideration of Admission/Observation Patient was admitted/placed on observation. Escalation of care including admission/observation considered. Management of patient was discussed with the following: Primary Care Provider: Dr. Bella, requests admission for acute kidney injury, also request that further fluids be held.. Care significantly affected by the following chronic conditions: Atrial fibrillation. Counseling: I had a detailed discussion with the patient and/or guardian regarding the historical points, exam findings, and any diagnostic results supporting the discharge/admit diagnosis, lab results, the need for further work-up and treatment in the hospital. Response to treatment: the patient's symptoms have mildly improved after treatment, and as a result, I will admit patient. 03/10 16:08 Order name: CBC with Diff; Complete Time: 16:36 rn 03/10 16:08 Order name: Basic Metabolic Panel; Complete Time: 16:36 rn 03/10 16:08 Order name: Protime (+inr); Complete Time: 16:36 rn 03/10 16:08 Order name: Ptt, Activated; Complete Time: 16:36 rn 03/10 16:08 Order name: EKG; Complete Time: 16:08 rn 03/10 16:08 Order name: IV Start; Complete Time: 16:14 rn 03/10 16:08 Order name: EKG - Nurse/Tech; Complete Time: 16:14 rn 03/10 16:08 Order name: Cardiac monitoring; Complete Time: 16:14 rn 03/10 16:08 Order name: O2 Sat Monitoring; Complete Time: 16:14 rn EC:59 Rate is 112 beats/min. Rhythm is irregularly irregular. QT interval is normal. No Q rn waves. T waves are Normal. No ST changes noted. Clinical impression: Atrial Fibrillation. Interpreted by me. Reviewed by me. Administered Medications: 17:39 Discontinued: NS 0.9% IV 500 ml IV at bolus once rn 16:19 Drug: NS 0.9% IV 500 ml Route: IV; Rate: bolus; Site: right wrist; mb9 17:10 Follow up: Response: No adverse reaction; IV Status: Completed infusion mb9 17:14 Drug: NS 0.9% IV 500 ml Route: IV; Rate: bolus; Site: right wrist; mb9 Disposition Summary: 03/10/23 17:50 Hospitalization Ordered Hospitalization Status: Inpatient Admission rn Provider: Cole Bella rn [facility]n Condition: Stable rn Problem: new rn Symptoms: have improved rn Bed/Room Type: Standard rn Room Assignment: 204(03/10/23 19:39) rd2 Diagnosis - Hypotension, unspecified rn - Acute kidney failure, unspecified rn Forms: - Medication Reconciliation Form rn - SBAR form rn - Leadership Thank You Letter rn Signatures: Dispatcher Medst Chester Angeles MD MD rn Willie, Jeniffer, RN RN mb9 Lauar Llamas RN RN rd2 Florecita Menendez RN RN nj1 Corrections: (The following items were deleted from the chart) 19:39 17:50 rn rd2
--- NOTE | 2023-03-10 17:50 | ER ---
Nurse's Notes [facility] Name: Mima Dougherty Age: 87 yrs Sex: Female : 1935 Arrival Date: 03/10/2023 Time: 15:47 Bed 7 Private MD: Diagnosis: Hypotension, unspecified;Acute kidney failure, unspecified Presentation: 03/10 15:56 Chief complaint: Patient states: Low blood pressure, generalized weakness. Pt nj1 discharged yesterday from hospital, had colonoscopy done yesterday, instructed to not take blood pressure med unless needed, patient took bp med even though SBP was 101. 15:56 Coronavirus screen: Vaccine status: Patient reports receiving the 2nd dose of the covid nj1 vaccine. Ebola Screen: Patient denies travel to an Ebola-affected area in the 21 days before illness onset. Risk Assessment: Do you want to hurt yourself or someone else? Patient reports no desire to harm self or others. Onset of symptoms was March 10, 2023. 15:56 Method Of Arrival: Wheelchair [facility] 15:56 Acuity: LAN 2 ga1 16:18 Coronavirus screen: At this time, the client does not indicate any symptoms associated mb9 with coronavirus-19. Ebola Screen: No symptoms or risks identified at this time. Initial Sepsis Screen: Does the patient meet any 2 criteria? No. Patient's initial sepsis screen is negative. Does the patient have a suspected source of infection? No. Patient's initial sepsis screen is negative. Risk Assessment: Do you want to hurt yourself or someone else? Patient reports no desire to harm self or others. Onset of symptoms was March 10, 2023. 16:18 Acuity: LAN 2 mb9 16:18 Method Of Arrival: Wheelchair [facility] Historical: - Allergies: 16:19 Amiodarone; nj1 16:19 Cozaar; nj1 16:19 Lisinopril; nj1 16:19 Metoprolol Tartrate; nj1 - PMHx: 16:19 Atrial Fib; CVA; MRSA; pnumonia; nj1 - Immunization history:: Client reports receiving the 2nd dose of the Covid vaccine. - Social history:: Smoking status: Patient denies any tobacco usage or history of. - Family history:: not pertinent. - Hospitalizations: : The patient was recently seen at [facility]. Screenin:18 [facility] ED Fall Risk Assessment (Adult) History of falling in the last 3 months, mb9 including since admission No falls in past 3 months (0 pts) Confusion or Disorientation No (0 pts) Intoxicated or Sedated No (0 pts) Impaired Gait No (0 pts) Mobility Assist Device Used No (0 pt) Altered Elimination No (0 pt) Score/Fall Risk Level 0 - 2 = Low Risk Oriented to surroundings, Maintained a safe environment, Educated pt \T\ family on fall prevention, incl call for assistance when getting out of bed. Abuse screen: Denies threats or abuse. Nutritional screening: No deficits noted. Tuberculosis screening: No symptoms or risk factors identified. Assessment: 16:17 General: Appears in no apparent distress. Behavior is calm, cooperative. Pain: Denies mb9 pain. Neuro: Salguero Agitation-Sedation Scale (RASS): 0 - Alert and Calm Level of Consciousness is awake, alert, obeys commands, Oriented to person, place, time, situation, Appropriate for age Reports dizziness. Cardiovascular: Heart tones S1 S2 present Patient's skin is warm and dry. Rhythm is atrial fibrillation. Respiratory: Airway is patent Respiratory effort is even, unlabored, Respiratory pattern is regular, symmetrical, Breath sounds are clear bilaterally. GI: Abdomen is flat, non-distended, Bowel sounds present X 4 quads. Abd is soft and non tender X 4 quads. : No signs and/or symptoms were reported regarding the genitourinary system. Derm: Skin is pink, warm \T\ dry. Musculoskeletal: Range of motion: intact in all extremities. 17:15 Reassessment: Patient and/or family updated on plan of care and expected duration. Pain mb9 level reassessed. Patient is alert, oriented x 3, equal unlabored respirations, skin warm/dry/pink. Patient states feeling better. Patient states symptoms have improved. 18:16 Reassessment: Patient and/or family updated on plan of care and expected duration. Pain mb9 level reassessed. Patient is alert, oriented x 3, equal unlabored respirations, skin warm/dry/pink. Patient states feeling better. Patient states symptoms have improved. Vital Signs: 15:56 BP 77 / 55; Pulse 106; Resp 18; Pulse Ox 97% on R/A; Weight 54.43 kg; Height 5 ft. 2 nj1 in. ; 16:00 BP 85 / 49; Pulse 108; Resp 16; Temp 98(O); Pulse Ox 100% ; mb9 16:27 BP 86 / 63; Pulse 105; Resp 16; Pulse Ox 100% on R/A; mb9 16:36 BP 85 / 52; Pulse 103; Resp 14; Pulse Ox 96% on R/A; mb9 17:05 BP 93 / 68; Pulse 106; Resp 14; Pulse Ox 98% on R/A; mb9 17:32 BP 106 / 67; Pulse 99; Resp 14; Pulse Ox 100% on R/A; mb9 18:16 BP 111 / 72; Pulse 102; Resp 18; Pulse Ox 98% on R/A; mb9 18:50 BP 116 / 86; Pulse 107; Resp 14; Pulse Ox 100% on R/A; mb9 15:56 Body Mass Index 21.95 (54.43 kg, 157.48 cm) [facility] ED Course: 15:49 Patient arrived in ED. ts1 15:56 Arm band placed on. nj1 15:57 Мария Tapia, KUN is Primary Nurse. mb9 16:01 Chester Camarillo MD is Attending Physician. rn 16:12 EKG done, by ED staff, reviewed by Chester Camarillo MD. Inserted saline lock: 22 gauge in mb9 right wrist, using aseptic technique. 16:14 Protime (+inr) Sent. mb9 16:14 Ptt, Activated Sent. mb9 16:14 Basic Metabolic Panel Sent. mb9 16:14 CBC with Diff Sent. mb9 16:18 Triage completed. mb9 16:19 Placed in gown. Bed in low position. Call light in reach. Side rails up X 1. Client mb9 placed on continuous cardiac and pulse oximetry monitoring. NIBP monitoring applied. 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 17:50 Cole Bella MD is Hospitalizing Provider. rn 19:08 Primary Nurse role handed off by Мария aTpia, KUN bp 19:08 Ishmael Hodges, KUN is Primary Nurse. bp 19:58 No provider procedures requiring assistance completed. Patient admitted, IV remains in bp place. Administered Medications: 17:39 Discontinued: NS 0.9% IV 500 ml IV at bolus once rn 16:19 Drug: NS 0.9% IV 500 ml Route: IV; Rate: bolus; Site: right wrist; mb9 17:10 Follow up: Response: No adverse reaction; IV Status: Completed infusion mb9 17:14 Drug: NS 0.9% IV 500 ml Route: IV; Rate: bolus; Site: right wrist; mb9 Medication: 16:19 VIS not applicable for this client. mb9 Outcome: 17:50 Decision to Hospitalize by Provider. rn 19:59 Condition: stable bp 19:59 Admitted to Med/surg accompanied by tech, via stretcher, room 204, with chart, Report bp called to SARAH RN 19:59 Instructed on the need for admit. 20:23 Patient left the ED. bp Signatures: Chester Camarillo MD MD rn Peltier, Brian RN RN Мария Carlin RN RN 9 Florecita Menendez RN RN nj1 Nika Hollis, DOUGLAS PAS ts1 Corrections: (The following items were deleted from the chart) 16:20 16:20 Arm band placed on nj1 nj1
[2023-03-10 21:43] VITALS: BMI 21.9
[2023-03-11] MEDS ORDERED: DIGOXIN 0.25 MG/ML AMP IV ONE (04:00)
[2023-03-11] MEDS ORDERED: PROPAFENONE HCL 150 MG TAB PO ONE (04:00)
[2023-03-11 04:05] LABS: Potassium 3.5 mEq/L (3.5-5.1)
[2023-03-11 04:10] LABS: Absolute Lymphocytes (CBC) 1.1 K/uL (0.7-4.9); Lymphocytes % 19.1 % (15.3-44.8); MCV 94.1 fL (80-100); MPV 10.9 fL (7.6-11.3); Platelets 162 thou/uL (152-406); RBC Red Blood Cell Count 2.98 M/uL (3.86-4.86)
[2023-03-11] MEDS ORDERED: PROPAFENONE HCL 150 MG TAB ONE (04:33)
--- NOTE | 2023-03-11 08:20 | RAD REPORT ---
EXAM DESCRIPTION: RAD - Chest Pa And Lat (2 Views) - 03/11/2023 8:13 am CLINICAL HISTORY: Afib COMPARISON: Chest Single View dated 03/06/2023; Chest Single View dated 11/30/2022; Chest Pa And Lat (2 Views) dated 11/16/2022; Chest Single View dated 10/25/2022; Small Bowel Series dated 03/11/2023 FINDINGS: Lines: None. Lungs: Basilar airspace disease, left greater than right. Pleural: Small to moderate left and small right pleural effusion. Cardiac: Cardiomegaly. Mediastinum: Within normal limits. Bones: No acute fractures. Other: None IMPRESSION: Pleural effusions, left greater than right, and possibly underlying atelectasis. Source of the effusions may be due to edema/volume overload.
--- NOTE | 2023-03-11 08:22 | RAD REPORT ---
EXAM DESCRIPTION: RAD - Small Bowel Series - 03/11/2023 8:13 am CLINICAL HISTORY: GI bleeding COMPARISON: Abdomen Pelvis W Contrast dated 01/07/2022 FINDINGS: Chief Media Officer film shows a nonspecific bowel gas pattern. No obstruction or free air. No suspiciou s calcifications. Gastric size and mucosal fold pattern are normal. No delay in transit of contrast into the small alok l. Small bowel is normal in diameter with no mucosal fold thickening. No intrinsic or extrinsic mass identifiable. Terminal ileum has normal appearance. Transit time to the colon is normal. No fluoroscopy was performed. Total images acquired: 6 IMPRESSION: Normal small bowel series.
[2023-03-11] MEDS: NA CHLORIDE 0.9% 1,000 ML IV SCH (08:34)
[2023-03-11] MEDS: ASPIRIN EC 81 MG TAB PO SCH (08:35)
[2023-03-11] MEDS: GABAPENTIN 100 MG CAP PO SCH ×2 (08:36→20:18)
[2023-03-11] MEDS: PANTOPRAZOLE 40MG TABLET PO SCH (08:36)
[2023-03-11] MEDS: PROPAFENONE HCL 150 MG TAB PO SCH ×3 (09:34→20:18)
--- NOTE | 2023-03-11 17:06 | EKG ---
Test Date: 2023-03-10 Test Time: 16:06:53 Tiler'S Assistant: MB MEASUREMENT RESULTS: Intervals: Rate: 112 TN: QRSD: 108 QT: 370 QTc: 505 [place]: P: TN: QRS: -66 T: 228 INTERPRETIVE STATEMENTS: Atrial fibrillation Indeterminate axis Inferior infarct, age undetermined Anterior infarct, age undetermined ST & T wave abnormality, consider lateral ischemia or digitalis effect Abnormal ECG Compared to ECG 03/06/2023 10:15:59 Indeterminate axis now present Sinus rhythm no longer present Atrial premature complex(es) no longer present Myocardial infarct finding still present ST (T wave) deviation still present Possible ischemia still present Electronically Signed On 03-11-23 17:05:10 CDT by Matthew Reaves
[2023-03-11] MEDS: ATORVASTATIN 40 MG TAB PO SCH (20:18)
[2023-03-11] MEDS: FAMOTIDINE 20 MG TAB PO SCH (20:18)
--- NOTE | 2023-03-11 21:14 | CON ---
Date of Consultation: 03/11/2023 Reason For Consultation: Elevated troponin. History Of Present Illness: 87-year-old female who was admitted recently to the hospital with severe anemia, likely due to GI blood loss, and she had significantly elevated troponin and non-ST elevatio n myocardial infarction. On echo, she had significant drop in her ejection fraction. She is back no w because her blood pressure was running low, probably over medications. Her blood pressure medicati ons were held. She is feeling well. Does not have any chest pain or shortness of breath at the pres ent time. Past Medical History: GI bleed, atrial fibrillation, and coronary artery disease, recent non-STEMI. She has history of hypertension, dyslipidemia. Medications: Refer reconciliation sheet for detailed list. Allergies: AMIODARONE, LISINOPRIL, LOSARTAN, AND METOPROLOL. Family History: No premature coronary artery disease or cancer. Social History: She does not smoke or drink. Does not use any drugs. Review of Systems: All systems reviewed are negative except mentioned in HPI. Physical Examination: Vital Signs: Reviewed. Head and Neck: Pupils are equal, reactive to light. Intact eye movements. No JVD. No cervical lym phadenopathy. Neck is supple. Thyroid is not enlarged. Lungs: Clear to auscultation bilaterally. No rhonchi, wheezing, or crackles. No accessory muscle u se. Heart: Irregularly irregular. No extra sounds. Abdomen: Soft, nontender. Bowel sounds positive. No organomegaly. No masses or hernia. No rigidi ty or rebound. Extremities: No edema, clubbing, cyanosis. Intact pulses. Skin: No rash noted. Neurologic: Alert, awake, oriented x3. No acute focal deficits appreciated. Investigations: BUN is 47, creatinine 1.86, and hemoglobin is 9.5. Assessment/recommendation: 1.Non-ST elevation myocardial infarction with drop in ejection fraction. Plan for coronary angiogra m this admission. At this point, her hemoglobin has been stable. I explained to her that likely it is an LAD significant stenosis. Plan on doing this tomorrow or day after based on her condition bein g stable. Continue baby aspirin and statin. 2.Dyslipidemia. Continue Lipitor 40 mg. 3.Atrial fibrillation. Rate is controlled. She cannot take anticoagulants due to massive GI bleed recently. Recommend left atrial appendage closure and fixation. SR/MODL Voice ID: [id number] Report ID: [id number]
[2023-03-12 03:42] LABS: Absolute Lymphocytes (CBC) 1.1 K/uL (0.7-4.9); Hematocrit 28.9 % (36.0-45.0); MCV 94.2 fL (80-100); MPV 9.9 fL (7.6-11.3); Platelets 170 thou/uL (152-406); RBC Red Blood Cell Count 3.06 M/uL (3.86-4.86)
--- NOTE | 2023-03-12 03:55 | HP ---
Date of Admission: 03/11/2023 Chief Complaint: Low blood pressure. History Of Present Illness: This is an 87-year-old very pleasant female patient who was recently in the hospital last week with severe anemia with a hemoglobin of 5.5 and received 2 units of packed red cell blood transfusion, and she had an EGD and a colonoscopy done during the last hospitalization. Her hemoglobin remained stable around 10 after 2 units of blood transfusion, and there was no further sign of ongoing active GI bleeding. EGD showed some duodenitis and no active bleeding, and colonoscopy showed 2 polyps. After the endoscopy workup was done on Saturday, the patient was released to go home, and upon discharge, instruction was written for her to check her blood pressure before taking her blood pressure medication and not to take antihypertensive medication if systolic blood pressure remains less than 130. The patient lives at home with her , and her daughter lives in [place], and yesterday afternoon, the patient's daughter contacted me and informed me that the patient's blood pressure was low, systolic blood pressure was around 78 or so, and unfortunately, she had taken her blood pressure medications yesterday without checking her blood pressure. After this, the patient came into the emergency room, and she was evaluated and admitted to the hospital with this low blood pressure and acute kidney injury. She was given IV fluid altogether about 750 mL in the emergency room, and this morning after I saw her, I did start her on IV fluid at a lower rate, 50 mL/h. This morning when I saw her, she denied any chest pain or shortness of breath. No abdominal pain, nausea, vomiting, or diarrhea. No blood in stool. Allergies: AMIODARONE CAUSING SWELLING OF THE FACE, LISINOPRIL CAUSING ANGIOEDEMA, LOSARTAN ALSO CAUSING ANGIOEDEMA, AND BETA-PARAS WITH THROAT SWELLING TYPE OF SIDE EFFECT. Current Medications: Tekturna 300 mg daily, aspirin 81 mg daily, furosemide 20 mg daily, gabapentin 100 mg 2 times a day, hydralazine 50 mg 2 times a day (hold if systolic BP less than 130), Atorvastatin 40 mg daily, propafenone 225 mg 3 times a day, pantoprazole 40 mg daily, tizanidine 2 mg at bedtime, and warfarin 3 mg daily, famotidine 20 mg daily at bedtime, Breo Ellipta inhaler 1 puff daily. Review of Systems: Constitutional: As mentioned above. Cardiovascular: As mentioned above. All other systems reviewed and negative. Past Medical History: Significant for recent hospital admission few days ago with NSTEMI and acute GI bleeding with acute blood loss anemia, COPD, allergic rhinitis, hypertension, hyperlipidemia, chronic atrial fibrillation, anemia, chronic diastolic heart failure, and osteopenia. Past Surgical History: Cataract surgery, tonsillectomy, removal of left breast cyst, ablation for atrial fibrillation, and fracture surgery. Family History: Father had coronary artery disease. Mother had thyroid disorder and hyperlipidemia. Brother with lung cancer and kidney cancer. Sister with diabetes. Social History: Negative for smoking, but she did smoke in the past, but has notin many years and use of alcohol with occasional glass of wine Physical Examination: Vital Signs: Last vital signs this morning, temperature 97.6, pulse 126, respiratory rate 16, blood pressure 117/77, and oxygen saturation 96% on room air. Her initial vital signs, initial blood pressure when she came into the emergency room was 77/55. General: Awake, alert, oriented, not in distress. HEENT: Head atraumatic, normocephalic. Conjunctivae nonerythematous. Sclerae white. Mouth, no thrush or edema noted. Ears/Nose, no mass, lesion, discharge noted. Neck: Supple. No JVD, lymph nodes, bruit, thyromegaly noted. Lungs: Bilateral good equal air entry. Clear to auscultation. No rhonchi. No rales. Heart: Normal heart sounds, no murmur or gallop. Abdomen: Soft, bowel sounds normal. No guarding, rigidity, tenderness, mass, hepatosplenomegaly, distention, or bruit noted. Extremities: No leg edema. No calf tenderness. Skin: No rash, ulcer, cellulitis. Lymphatics: No lymph node enlargement in neck, supraclavicular, infraclavicular region. Neuro: No focal neurological deficit. Chest: Unremarkable. External Genitalia: Deferred. Rectal: Deferred. Laboratories: Yesterday, white count 6.7, hemoglobin 10.5, and platelets 234. This morning, white count 5.8, hemoglobin 9.5, and platelets 162. Yesterday, sodium 141, potassium 3.6, chloride 111, bicarb 22, BUN 45, creatinine 1.86, and glucose 152. This morning, sodium 142, potassium 3.5, chloride 114, bicarb 22, BUN 47, creatinine 1.86, and glucose 100. INR was 1.36 yesterday. Troponin was 1113 today and it is much lower than few days ago. Impression: 1. Acute kidney injury. 2. Hypotension. 3. Probable coronary artery disease. 4. Anemia. 5. Chronic atrial fibrillation. 6. Chronic anticoagulation therapy. 7. Hypertension. 8. Hyperlipidemia. 9. Chronic diastolic heart failure. 10. Chronic systolic heart failure. 11. Chronic kidney disease, stage 3A. Plan: We will go ahead and admit the patient to the hospital for further evaluation and management of this problem. The patient is appropriate for inpatient and is expected to spend 2 midnights in the hospital. Her acute kidney injury problem is due to volume depletion and low blood pressure, and unfortunately, the patient did not follow instructions at home about checking her blood pressure before taking her blood pressure medications, and we believe that has resulted in this problem requiring hospital admission. I did discuss with the patient's daughter yesterday about all these details, and today, this evening, I also have discussed all the details with the patient's daughter. This morning after I saw her, careful IV fluid hydration, normal saline at 50 mL/h was started. Chest x-ray was done, that has shown pleural effusion, and we will have to monitor her closely. So far, she has not shown any signs of fluid overload, and if she does start to have such a problem, then we will have to discontinue her IV fluid, but our goal is to see how her kidney function improves with careful IV fluid hydration, and we will repeat blood work tomorrow morning. Her echocardiogram done during the last hospital admission has shown ejection fraction around 35% to 40% with wall motion abnormality, and we are definitely concerned about underlying coronary artery disease as per my discussion with scallop raker, Dr. Reaves, and he is recommending cardiac cath to be done either tomorrow or day after tomorrow depending on her renal function. We will repeat blood work tomorrow morning, and I did discuss with Dr. Reaves about whether to start anticoagulation or antiplatelet therapy, and per my discussion with him, we will start her on aspirin 81 mg daily and continue her antiarrhythmic medication, propafenone 225 mg three times a day, and last night, nurse did call me when she had rapid ventricular rate with atrial fibrillation, and one dose of digoxin 0.25 mg IV was given along with one dose of oral propafenone. Subsequently, during the course of the day, her heart rate did come down under better control. Physical Therapy was consulted, and the patient has ambulated very well with Physical Therapy. We will continue her proton pump inhibitors, which are pantoprazole and famotidine. A small bowel series was done today, which came back normal, and I have informed the patient's daughter about this result this evening and also suggested that patient to follow up with Dr. Milian on an outpatient basis to do a capsule endoscopy. DARWIN/TAHIR Voice ID: [id number]
[2023-03-12 03:56] LABS: Potassium 3.9 mEq/L (3.5-5.1)
[2023-03-12] MEDS: NA CHLORIDE 0.9% 1,000 ML IV SCH (04:25)
[2023-03-12] MEDS: PROPAFENONE HCL 150 MG TAB PO SCH ×3 (09:00→20:29)
[2023-03-12] MEDS: ASPIRIN EC 81 MG TAB PO SCH ×2 (09:00→13:18)
[2023-03-12] MEDS: GABAPENTIN 100 MG CAP PO SCH ×3 (09:00→20:29)
[2023-03-12] MEDS: PANTOPRAZOLE 40MG TABLET PO SCH ×2 (09:00→13:19)
[2023-03-12 15:48] LABS: Potassium 3.7 mEq/L (3.5-5.1)
[2023-03-12] MEDS ORDERED: NA CHLORIDE 0.9% 1,000 ML IV SCH (16:00)
--- NOTE | 2023-03-12 19:47 | PN ---
Date of Progress Note: 03/12/2023 Subjective: The patient was seen this morning for followup. She was lying in bed. Denies any chest pain or shortness of breath. Objective: Vital Signs: Reviewed. HEENT: Unremarkable. Lungs: Clear to auscultation. Heart: Sounds normal. Abdomen: Soft. Bowel sounds normal. No guarding, rigidity, tenderness, distention. Extremities: No leg edema. Laboratory Data: White count 5.8, hemoglobin 9.8, platelets 170. Sodium 139, potassium 3.9, chlorid e 111, bicarb 21, BUN 43, creatinine 1.46, glucose 102. Impression: 1.Acute kidney injury. 2.Volume depletion. 3.Probable coronary artery disease. 4.Hypertension. 5.Anemia. Plan: The patient does not have any signs and symptoms of fluid overload, and IV fluid was continued Dr. Ortega saw her this morning. Dr. Reaves is planning to do cardiac cath tomorrow. This afternoon, I did discontinue her IV fluid and ordered another basic metabolic panel and her creatinine is still 1. 4, so I have restarted her IV fluid. We will continue aspirin, continue statin therapy, and continue pantoprazole and famotidine. I will see her tomorrow morning for followup. DARWIN/MODL Voice ID: [id number] Report ID: [id number]
[2023-03-12] MEDS: FAMOTIDINE 20 MG TAB PO SCH (20:29)
[2023-03-12] MEDS: ATORVASTATIN 40 MG TAB PO SCH (20:29)
[2023-03-13 06:34] LABS: Absolute Lymphocytes (CBC) 1.1 K/uL (0.7-4.9); Hematocrit 28.8 % (36.0-45.0); Lymphocytes % 19.9 % (15.3-44.8); Platelets 199 thou/uL (152-406); RBC Red Blood Cell Count 3.03 M/uL (3.86-4.86)
[2023-03-13 06:53] LABS: Potassium 4.1 mEq/L (3.5-5.1)
[2023-03-13] MEDS ORDERED: NA CHLORIDE 0.9% 1,000 ML IV SCH (07:00)
[2023-03-13] MEDS: PROPAFENONE HCL 150 MG TAB PO SCH ×3 (08:25→22:26)
[2023-03-13] MEDS: PANTOPRAZOLE 40MG TABLET PO SCH (09:00)
[2023-03-13] MEDS: ASPIRIN EC 81 MG TAB PO SCH (09:00)
[2023-03-13] MEDS: GABAPENTIN 100 MG CAP PO SCH ×2 (09:00→22:22)
[2023-03-13] MEDS ORDERED: LIDOCAINE 1% 20 ML MDV ONE (12:52)
[2023-03-13] MEDS ORDERED: HEPA 1000U/500MLS 2,000 UNIT/1,000 ML BAG IV ONE (12:52)
[2023-03-13] MEDS ORDERED: FENTANYL CITR 100 MCG/2 ML ONE (12:52)
[2023-03-13] MEDS ORDERED: ATROPINE SULF 1 MG/10 ML SYR IV ONE (12:53)
[2023-03-13] MEDS ORDERED: ASPIRIN 325 MG TAB ONE (12:53)
[2023-03-13] MEDS ORDERED: HEPARIN 10,000 UNIT/10 ML VIAL IV ONE (12:53)
[2023-03-13] MEDS ORDERED: MIDAZOLAM HCL 2 MG/2 ML INJ ONE (12:53)
[2023-03-13] MEDS ORDERED: TICAGRELOR 90 MG TABLET PO ONE (12:53)
[2023-03-13] MEDS ORDERED: CLOPIDOGREL 75 MG TABLET ONE (12:53)
[2023-03-13] MEDS ORDERED: HYDRALAZINE HCL 20 MG/ML VIAL ONE (14:51)
--- NOTE | 2023-03-13 19:14 | PN ---
Date of Progress Note: 03/13/2023 Subjective: Seen by bedside. She is status post coronary angiogram. She has severe left main LAD a nd left circumflex disease and does not have any chest pain. Review of Systems: No chest pain, shortness of breath, orthopnea, or cough. No nausea, vomiting, or diarrhea. All othe r systems were reviewed, they were negative. Objective: Vital Signs: Reviewed. Head and Neck: Pupils are equal, reactive to light. Intact eye movements. No JVD. No cervical lym phadenopathy. Neck is supple. Thyroid is not enlarged. Lungs: Clear to auscultation bilaterally. No rhonchi, wheezing, or crackles. No accessory muscle u se. Heart: Irregular. No extra sounds. Abdomen: Soft, nontender. Bowel sounds are positive. No organomegaly. No masses or hernia. No ri gidity or rebound. Extremities: No edema, clubbing, or cyanosis. Intact pulses. Skin: No rash. No nodule. Neurologic: Alert, awake, oriented x3. No acute focal deficits appreciated. Lymph Nodes: No cervical or axillary lymphadenopathy. Investigations: Labs were reviewed. Assessment And Recommendations: 1.Bxu-OH-tmjmxzsac myocardial infarction, severe left main LAD and left circumflex disease. She nee ds a PCI with Impella assisted. We will plan to transfer to [facility] to perform th is, this week. 2.Systolic heart failure. She appears to be euvolemic and this is due to the severe coronary artery disease. Should improve after the revascularization. 3.Atrial fibrillation. She is in sinus. Continue to monitor. SR/MODL Voice ID: [id number] Report ID: [id number]
--- NOTE | 2023-03-13 20:26 | OP ---
Date of Procedure: 03/13/2023 Surgeon: RUSS CAMACHO Procedures Performed: 1.Selective coronary angiogram. 2.Left heart catheterization. Indication: 1.Kei-XD-gyoiinaal myocardial infarction. 2.Significant drop in ejection fraction. Access: Right femoral artery 6-Norwegian closed with manual pressure. Complications: None. Bleeding: Less than 20 mL. Anesthesia: Total sedation time was 20 minutes. Description Of Procedure: After risks, benefits, alternatives were explained, patient agreed to proc edure and signed informal consent. Patient was brought into cardiac catheterization laboratory, prep ped and draped in sterile fashion. Then, I accessed right femoral artery using micropuncture kit, pl aced a 6-Norwegian Watts sheath, took 6-Norwegian JL4 catheter into the aortic root, engaged left main, took standard views and then exchanged for a 6-Norwegian JR4 catheter, engaged the RCA, took standard vi ews and the catheter was pushed over the wire into the LV, measured LVEDP, pullback did not record an y gradient. Findings: 1.Left main; distal 90% stenosis and heavily calcified. 2.LAD; ostial 95% stenosis, heavily calcified. The rest of the LAD is normal. 3.Left circumflex; ostial 70% stenosis. 4.RCA; it is dominant, small vessel, no disease, and gives collaterals to the LAD. 5.Elevated LVEDP at 25 to 29 mmHg. Conclusion: Severe left main, left circumflex, and LAD stenosis with collaterals from the left. Recommendation: Impella assisted bifurcation stenting of the left main to LAD and to left circumflex to be done at [place]. We will transfer the patient for that purpose. SR/MODL Voice ID: [id number] Report ID: [id number]
--- NOTE | 2023-03-13 20:41 | PN ---
Date of Progress Note: 03/13/2023 Subjective: The patient was seen this morning for followup. No new complaints or problems reported by patient. Lying in bed, not in distress. Denies any chest pain or shortness of breath. Objective: Vital Signs: Reviewed. HEENT: Unremarkable. Lungs: Clear to auscultation. No wheezing. No rales. Heart: Sounds normal. Abdomen: Soft. Bowel sounds normal. No guarding, rigidity, tenderness, or distention. Extremities: No leg edema. Laboratory Data: White count 5.5, hemoglobin 9.7, platelets 199. Sodium 141, potassium 4.1, chlorid e 114, bicarb 23, BUN 32, creatinine 1.16, glucose 102. Impression: 1.Acute kidney injury. 2.Volume depletion. 3.Coronary artery disease. 4.Hypertension. 5.Hyperlipidemia. 6.Anemia. Plan: After I saw the patient this morning, Ornamental Plaster Sticker, Dr. Reaves, did a cardiac catheterization later today and he contacted me and informed me that the patient had significant coronary artery dise ase problem with about 95% ostial stenosis in all the 3 coronary arteries and she will need intervent ion, but it will not be possible at our hospital, so Dr. Reaves has initiated arrangements to be made for her to be transferred to [facility] in [place]. He has already communicated with the patie oziel's daughter regarding all these details as well. The patient remains on anti-platelet therapy and statin therapy. Her renal function has improved. I will be leaving [facility] and this patient's care will be provided by hospitalist team in my absence as of tomorrow. DARWIN/MODL Voice ID: [id number] Report ID: [id number]
[2023-03-13] MEDS: FAMOTIDINE 20 MG TAB PO SCH (22:22)
[2023-03-13] MEDS: ATORVASTATIN 40 MG TAB PO SCH (22:22)
[2023-03-13 22:32] VITALS: O2SAT 94
[2023-03-14] MEDS ORDERED: CLOPIDOGREL 75 MG TABLET PO SCH (09:00)
[2023-03-14] MEDS: GABAPENTIN 100 MG CAP PO SCH ×2 (09:24→20:28)
[2023-03-14] MEDS: ASPIRIN EC 81 MG TAB PO SCH (09:24)
[2023-03-14] MEDS: PANTOPRAZOLE 40MG TABLET PO SCH (09:25)
[2023-03-14] MEDS: PROPAFENONE HCL 150 MG TAB PO SCH ×3 (09:25→20:29)
[2023-03-14] MEDS ORDERED: FUROSEMIDE 20 MG/ 2ML VIAL IV ONE (10:10)
--- NOTE | 2023-03-14 10:10 | PN ---
Date of Progress Note: 03/14/2023 Subjective: Seen by bedside. Appears to be short of breath and mildly orthopneic. Review of Systems: No chest pain. Has shortness of breath. No nausea, vomiting, diarrhea. No dysuria, polyuria, or ur inary urgency. No skin rash or headache. All other systems reviewed and they were negative. Physical Examination: Vital Signs: Reviewed. Head and Neck: Pupils are equal, reactive to light. Intact eye movements. Positive JVD. No cervic al lymphadenopathy. Neck is supple. Thyroid is not enlarged. Lungs: Crackles in both lung robison. No accessory muscle use or muscle retraction. Heart: Regular rate and rhythm. No extra sounds. Abdomen: Soft, nontender. Bowel sounds positive. No organomegaly. No masses or hernia. No rigidi ty or rebound. Extremities: No clubbing or cyanosis. Intact pulses. Skin: No rash. Neurologic: Alert, awake, oriented x3. No acute focal deficits appreciated. Lymph Nodes: No cervical or axillary lymphadenopathy. Investigations: Labs were reviewed. Assessment And Recommendations: 1.Non-ST elevation myocardial infarction, severe coronary artery disease. Needs Impella assisted, P CI of left main to LAD and left circumflex. So, [facility] with Impella assistance. Add Plavix to her medications and continue asp irin. 2.Dyslipidemia. Continue statin. 3.Acute renal failure. This is resolved. 4.Acute on chronic systolic heart failure exacerbation. Stop the fluids and give her 20 mg of Lasix IV now and dose Lasix as needed. SR/MODL Voice ID: [id number] Report ID: [id number]
--- NOTE | 2023-03-14 14:46 | P.PN ---
Date of Service: 03/14/23 Subjective: Family is now reporting both her PCP - Dr. Bella, and regular Auto Mechanics Teacher - Dr. Pulido are both recommending for bypass surgery rather than impella assisted PCI secondary to her severe anemia recently requiring blood transfusion would like to stop transfer orders to [facility] and to initialize transfer to [facility] for Dr. Lundberg , CT surgery, for evaluation for CABG no acute events overnight ROS: 10 point ROS as noted above, otherwise negative Physical Exam: GEN: Alert, oriented, NAD HEENT: Normal conjunctiva, sclera anicteric CV: Regular rate and rhythm, no edema Pulm: Nonlabored respirations on room air ABD: Soft, nontender, nondistended Neuro: Normal speech, normal affect vitals reviewed Problem List: NSTEMI Severe CAD acute on chronic systolic CHF STNA Hyperlipidemia NSTEMI Severe CAD acute on chronic systolic CHF Cardiology consulted. s/p heart cath (03/13) - Severe left main, left circumflex, and LAD stenosis with collaterals from the left Per Dr. Reaves patient needs Impella assisted, PCI of left main to LAD and left circumflex, so Dr. Reaves has initiated arrangements to be made for her to be transferred to a higher level of care facility - [facility] in [place]. 03/14 Family is now reporting both her PCP - Dr. Bella, and regular Auto Mechanics Teacher - Dr. Pulido are both recommending for bypass surgery rather than impella assisted PCI would like to stop transfer orders to [facility] and to initialize transfer to [facility] where Dr. Lundberg has privileges discussed with Dr. Pulido and Dr. Lundberg continue aspirin Start plavix per cardio 03/14 STAN improved with IV fluids improving / stable Hyperlipidemia continue statin Dispo xfer pending
[2023-03-14] MEDS: FAMOTIDINE 20 MG TAB PO SCH (20:28)
[2023-03-14] MEDS: ATORVASTATIN 40 MG TAB PO SCH (20:28)
[2023-03-14 23:58] VITALS: BP 140/62; TEMP 97.2
--- NOTE | 2023-03-15 01:42 | P.DS ---
Admission Date: 03/10/23 Discharge Date: 03/15/23 Disposition: TRANSFER TO [facility] Discharge Condition: FAIR Reason for Admission: NSTEMI, STAN Consultations: Cardiology Procedures: Small bowel x-ray 03/11/2023 Gastric size and mucosal fold pattern are normal. No delay in transit of contrast into the small bowel. Small bowel is normal in diameter with no mucosal fold thickening. No intrinsic or extrinsic mass identifiable. Terminal ileum has normal appearance. Transit time to the colon is normal. No fluoroscopy was performed. Total images acquired: 6 IMPRESSION: Normal small bowel series. Chest x-ray 03/11/2023 FINDINGS: Lines: None. Lungs: Basilar airspace disease, left greater than right. Pleural: Small to moderate left and small right pleural effusion. Cardiac: Cardiomegaly. Mediastinum: Within normal limits. Bones: No acute fractures. Other: None IMPRESSION: Pleural effusions, left greater than right, and possibly underlying atelectasis. Source of the effusions may be due to edema/volume overload Left heart cath 03/13/2023 Findings: 1. Left main; distal 90% stenosis and heavily calcified. 2. LAD; ostial 95% stenosis, heavily calcified. The rest of the LAD is normal. 3. Left circumflex; ostial 70% stenosis. 4. RCA; it is dominant, small vessel, no disease, and gives collaterals to the LAD. 5. Elevated LVEDP at 25 to 29 mmHg. Conclusion: Severe left main, left circumflex, and LAD stenosis with collaterals from the left. Brief History of Present Illness: HPI History Of Present Illness: This is an 87-year-old very pleasant female patientwho was recently in the hospital last week with severe anemia with a hemoglobin of 5.5 and received 2 units of packed red cell blood transfusion, and she had anEGD and a colonoscopy done during the last hospitalization. Her hemoglobin remained stable around 10 after 2 units of blood transfusion, and there was no further sign of ongoing active GI bleeding. EGD showed some duodenitis and no active bleeding, and colonoscopy showed 2 polyps. After the endoscopy workup was done on Saturday, the patient was released to go home, and upon discharge, instruction was written for her to check her blood pressure before taking her blood pressure medication and not to take antihypertensive medication if systolic blood pressure remains less than 130. The patient lives at home with her , and her daughter lives in [place], and yesterday afternoon, the patient's daughter contacted me and informed me that the patient's blood pressure was low, systolic blood pressure was around 78 or so, and unfort unately, she had taken her blood pressure medications yesterday without checking her blood pressure. After this, the patient came into the emergency room, and she was evaluated and admitted to the hospital with this low blood pressure and acute kidney injury. She was given IV fluid altogether about 750 mL in the emergency room, and this morning after I saw her, I did start her on IV fluid at a lower rate, 50 mL/h. This morning when I saw her, she denied any chest pain or shortness of breath. No abdominal pain, nausea, vomiting, or diarrhea. No blood in stool. Hospital Course: Patient was admitted with acute kidney injury which resolved with gentle IV fluids, she was also noted to have acute on chronic CHF with elevated troponin, on 03/13/2023 she had a heart catheterization performed which revealed severe left main, left circumflex, and LAD stenosis with collaterals from the left. Initial plan was for Impella assisted PCI of the left main to LAD and left circumflex, patient's family spoke with their primary fisher reef net and PCP who recommended CABG rather than PCI. Family initially requested transfer to [facility] but subsequently requested transfer to [facility] for evaluation. Transfer was initiated to [facility] Case was discussed with Dr. Harper hospitalist and CT surgery we have graciously excepted the patient. She will be transferred to [facility] for further evaluation of multivessel CAD. Problem List: NSTEMI Severe CAD acute on chronic systolic CHF STAN Hyperlipidemia NSTEMI Severe CAD acute on chronic systolic CHF Cardiology consulted. s/p heart cath (03/13) - Severe left main, left circumflex, and LAD stenosis with collaterals from the left Per Dr. Reaves patient needs Impella assisted, PCI of left main to LAD and le ft circumflex, so Dr. Reaves has initiated arrangements to be made for her to be transferred to a higher level of care facility - [facility] in [place]. 03/14 Family is now reporting both her PCP - Dr. Bella, and regular [facility] - Dr. Pulido are both recommending for bypass surgery rather than impella assisted PCI would like to stop transfer orders to [facility] and to initialize t ransfer to [facility] where Dr. Lundberg has privileges discussed with Dr. Pulido and Dr. Lundberg continue aspirin Start plavix per cardio 03/14 STAN improved with IV fluids improving / stable Hyperlipidemia continue statin Dispo xfer pending Vital Signs/Physical Exam: Temp Pulse Resp BP Pulse Ox 97.2 F 67 16 140/62 95 03/14/23 23:58 03/14/23 23:58 03/14/23 23:58 03/14/23 23:58 03/14/23 23:58 General: Alert, In no apparent distress, Oriented x3 HEENT: Atraumatic, PERRLA, EOMI Neck: Supple, JVD not distended Respiratory: Clear to auscultation bilaterally, Normal air movement Cardiovascular: Regular rate/rhythm, Normal S1 S2 Capillary refill: <2 Seconds Gastrointestinal: Normal bowel sounds, No tenderness Musculoskeletal: No tenderness Integumentary: No rashes Neurological: Normal speech, Normal tone, Normal affect Laboratory Data at Discharge: WBC 5.50 thou/uL (4.3-10.9) 03/13/23 06:10 Hgb 9.7 g/dL (12.0-15.0) L 03/13/23 06:10 Hct 28.8 % (36.0-45.0) L 03/13/23 06:10 Plt Count 199 thou/uL (152-406) 03/13/23 06:10 PT 15.0 SECONDS (9.5-12.5) H 03/10/23 16:13 INR 1.36 03/10/23 16:13 APTT 28.3 SECONDS (24.3-36.9) 03/10/23 16:13 Sodium 141 mEq/L (136-145) 03/13/23 06:10 Potassium 4.1 mEq/L (3.5-5.1) 03/13/23 06:10 BUN 32 mg/dL (7-18) H 03/13/23 06:10 Creatinine 1.16 mg/dL (0.55-1.02) H 03/13/23 06:10 Glucose 102 mg/dL (74-106) 03/13/23 06:10 Home Medications: Aliskiren [Tekturna*] 300 mg PO DAILY 07/11/17 Propafenone [Rythmol SR] 1 tab PO TID 07/11/17 Warfarin Sodium [Coumadin*] 3 mg PO DAILY 07/11/17 Aspirin [Aspir-Low] 1 tab PO DAILY 07/12/17 Cholecalciferol (Vitamin D3) [Vitamin D3] 2,000 unit PO DAILY 04/10/19 Pearls 1 pill PO DAILY 04/10/19 Psyllium [Metamucil (Hydrocil)*] 1 pkt PO TID 04/10/19 Hydralazine [Apresoline*] 50 mg PO TID 01/07/22 Furosemide [Lasix] 20 mg PO DAILY 10/25/22 Tizanidine HCl [Zanaflex] 2 mg PO BEDTIME 10/25/22 Raven C 1000mg 1 tab PO DAILY 03/06/23 Famotidine 20 mg PO DAILY 03/06/23 Gabapentin 100 mg PO BID 03/06/23 Atorvastatin Calcium [Lipitor] 40 mg PO BEDTIME 03/11/23 Physician Discharge Instructions: Patient presented with low blood pressure. Echo done 02/08 noted ~35% EF. Cardiology was consulted. Patient underwent heart catheterization and found to have significant coronary artery disease with about 95% ostial stenosis in all the 3 coronary arteries and she will need intervention. However patient needs Impella assisted, PCI of left main to LAD and left circumflex, so Dr. Reaves has initiated arrangements to be made for her to be transferred to a higher level of care facility - [facility] in [place]. He has already communicated with the patient's daughter regarding all these details as well. The patient remains on anti-platelet therapy and statin therapy. Her renal function has improved. Followup: Chris Bella MD [Primary Care Provider] -
== END 2023-03-15 04:10 | disposition short-term general hospital (02) | DRG 280 ==
LOC: ER 15:47 → ERHOLD 17:52 → 2ND 20:04
PROVIDERS: ADMIT Internal Medicine; ATTEND Hospitalist
PROC: 4A023N7 Measurement of Cardiac Sampling and Pressure, Left Heart, Percutaneous Approach (ICD-10-PCS; principal; 2023-03-10)
PROC: B2111ZZ Fluoroscopy of Multiple Coronary Arteries using Low Osmolar Contrast (ICD-10-PCS; 2023-03-10)
DX: I21.4 Non-ST elevation (NSTEMI) myocardial infarction (principal); I50.23 Acute on chronic systolic (congestive) heart failure; I13.0 Hypertensive heart and chronic kidney disease with heart failure and stage 1 through stage 4 chronic kidney disease, or unspecified chronic kidney disease; I48.20 Chronic atrial fibrillation, unspecified; N17.9 Acute kidney failure, unspecified; N18.31 Chronic kidney disease, stage 3a; D63.1 Anemia in chronic kidney disease; E86.9 Volume depletion, unspecified; E78.5 Hyperlipidemia, unspecified; I25.10 Atherosclerotic heart disease of native coronary artery without angina pectoris; Z88.8 Allergy status to other drugs, medicaments and biological substances; Z86.14 Personal history of Methicillin resistant Staphylococcus aureus infection; Z86.73 Personal history of transient ischemic attack (TIA), and cerebral infarction without residual deficits; Z79.01 Long term (current) use of anticoagulants; Z79.82 Long term (current) use of aspirin; Z79.899 Other long term (current) drug therapy
CPT/HCPCS: 36415; 71046; 74250; 76937; 80048; 84484; 85025; 85610; 85730; 93005; 93458; 96360; 97116; 97161; 99285; C1893; J0360; J0461; J1160; J1940; J2001; J2250; J3010; J7030; J7040; Q9966